=== PATIENT | female | born 1960 | race Caucasian/White ===

== ENCOUNTER 2017-07-08 15:26 | Emergency (ER) | payer MEDICARE, SELFPAY ==
[2017-07-08 15:28] VITALS: BP 145/115; PULSE 84; RESP 20; TEMP 35.9; O2SAT 99; BMI 41.2
--- NOTE | 2017-07-08 16:08 | CT_ITS ---
CT Abdomen And Pelvis W/O Contrast INDICATION: LLQ PAIN. PRIOR TUBIAL LIGATION COMPARISON: None TECHNIQUE: Axial CT imaging of the abdomen and pelvis without contrast. Coronal and sagittal reformatted images. Radiation dose of demonstration technique applied. FINDINGS: There is evidence of moderate left-sided hydronephrosis with surrounding left perinephric fat stranding. There is mild prominence of the left ureter. There is a 1 mm hyperdensity seen in the left distal ureter, image 143 and coronal image 48, which may represent a tiny ureteral calculus. There is otherwise no evidence of nephrolithiasis. The lung bases are clear. The heart size is normal. The liver is diffusely low in density and mildly prominent in size (20 cm CC). Gallbladder, spleen, adrenal glands and pancreas demonstrate grossly unremarkable noncontrast CT appearance. Bowel loops are nondistended. Appendix is unremarkable. Uterus is somewhat bulky, cannot exclude uterine fibroid. Urinary bladder is decompressed. No evidence of free air or free fluid. CT/Abdomen/Pelvis without Cont IMPRESSION: Faint 1 mm left distal ureteral calculus with left-sided hydronephrosis and perinephric fat stranding. Hepatic steatosis and prominent size of the liver. at 1713 Reported and signed by: Rachel Maldonado MD Electronically Signed: Rachel Maldonado MD at 16:12 EST Tel , Service support ,
[2017-07-08] MEDS: Ondansetron 4 MG/2 ML Vial IV (16:34)
[2017-07-08 17:02] LABS: Basophil# 0.08 X10^3/uL; Basophil% 0.4 % (0-1); Eosinophil# 0.04 X10^3/uL; Eosinophils% 0.2 % (0-5); Hematocrit 39.8 % (37-47); Hemoglobin 13.4 g/dl (12.0-15.0); Lymphocyte % 8.9 % (19-41); Mean Corp Hgb Conc 33.7 g/gl (32-36); Mean Corpuscular Hgb 29.2 pg (27.0-32.0); Mean Corpuscular Volume 86.7 fL (81-99); Mean Platelet Vol. 9.3 fl (6.2-12.0); Monocyte# 1.23 X10^3/uL; Monocyte% 6.4 % (0-10); Neutrophil # 16.03 X10^3/uL (2.7-7.7); Neutrophil % 83.8 % (47-70); Platelet Count 335 K/mm3 (150-450); RBC Distribution Width CV 13.6 % (11.6-14.6); RBC Distribution Width SD 42.1 fl (35.1-43.9); Red Blood Count 4.59 M/mm3 (4.2-5.4); White Blood Count 19.1 K/mm3 (4.4-11.0)
[2017-07-08 17:14] LABS: POSITIVE COUNT NO; POSITIVE DIFFERENTIAL NO; POSITIVE MORPHOLOGY NO
[2017-07-08 17:15] LABS: Anion Gap 7 (5-15); BUN 18 mg/dL (7-18); BUN/Creat Ratio 18.3 RATIO (10-20); Calcium,Total 9.3 mg/dL (8.5-10.1); Chloride 104 mmol/L (98-107); Creatinine, Serum 0.98 mg/dL (0.55-1.02); EST Glomerular Filtration Rate 62 mL/min (>60); Est Glom Filt Rate - Afr Amer 75 mL/min (>60); Estimated Creatinine Clearance 50.09 ml/min; Glucose 197 mg/dL (74-106); Potassium 3.8 mmol/L (3.5-5.1); Sodium Level 140 mmol/L (136-145)
[2017-07-08 17:29] LABS: Bacteria 0 SEEN /hpf (None Seen); Mucous, Urine 0 SEEN /hpf (<or=2+); Squamous Epithelial Cells - UA 0 SEEN /hpf (5-10)
[2017-07-08 17:33] LABS: Color, Urine Yellow (Yellow); Glucose, Dipstick Normal (Normal); Ketone-Dipstick 15 mg/dl (Negative); Leukocyte Esterase-Dipstick 25 /ul (Negative); Nitrite-Dipstick Negative (Negative); Occult Blood-Urine 250 /ul (Negative); Protein-Dipstick 15 mg/dl (Negative); Urine Bilirubin Dipstick Negative (Negative); Urine Clarity Cloudy (Clear); Urine Urobilinogen Normal (Normal)
[2017-07-08 18:16] LABS: Amorphous Sediment 1+; Red Blood Cells-Urine 25-50 SEEN /hpf (0-5); White Blood Cells 0-5 SEEN /hpf (0-5)
--- NOTE | 2017-07-08 19:23 | ED.VISSUMM ---
- ER Visit Summary Date of Service: 07/08/17 Chief Complaint: Left lower quadrant pain/flank pain History of Present Illness: The patient is a 57 F who presents with onset of left lower quadrant/flank pain 2-3 days ago. She complains of frequency, urgency and hematuria. She denies dysuria. She denies fever, chills night sweats. She does complain of nausea without vomiting or diarrhea. She has no history of renal ureterolithiasis. She has no history of diverticulosis or diverticulitis. She does have history of hypertension and diabetes. Nothing exacerbates, alleviates or precipitated her discomfort. She states she was treated for urinary tract infection last week. She denies any ocular, visual auditory symptoms. She denies chest pain, palpitations rapid heartbeat. She denies cough, shortness of breath, dyspnea on exertion, orthopnea or PND. There is no history of trauma. She denies any skin lesions. Physical Examination: Appears uncomfortable. BMI is 41.2. Blood pressure is elevated 135/115. Head is atraumatic normocephalic. Pupils are equal round reactive. Extraocular muscles are intact. TMs are pearly white with landmarks noted. Nares patent with no drainage. Posterior pharynx without erythema or exudate. Uvula is midline. There is no dysphonia or dysphasia. Trachea is midline. There is no stridor with auscultation of the neck. Heart is regular without murmur, gallop or rub. S1 and S2 are normal. Lungs are clear to auscultation with good movement of air bilaterally. Abdomen is remarkable for mild discomfort in the left side to deep palpation. There is no guarding or rebound tenderness. There is equivocal CVA tenderness on the left. There is no evidence of umbilical or inguinal hernia. No skin lesions or rash was noted. Neuro exam is nonfocal. Test Results: Note is 19.1 thousand with 84 segs and no bands. Electrode panel was marked for glucose of 197. Urine is positive for leukoesterase and blood at 25 and 250 respectively. Nitrites was negative. Micro reveals 0-5 WBCs 25-50 RBCs with no bacteria. CT of the abdomen and pelvis without contrast reveals a distal 1 mm left ureteral stone. Emergency Department Course and Treatment: He was established and since she is middle-aged with comorbid morbidities she received 4 mg of Zofran 4 mg of morphine for discomfort. Blood work was obtained as well as CT of the abdomen and pelvis without contrast. Treatment Plan: Referral to Dr. Jeffery Carbajal and prescription for [place] Disposition: Discharge to home in stable improved condition Impression: Left sided abdomen/flank pain secondary to ureterolithiasis This note was generated with [employer] dictation software. It may contain incorrect words, spelling, and punctuation that were not noted in review of the chart prior to signing ED Disposition - Plan for ED Patient: Disposition: Home or Assisted Living Chief Complaint: Abd Pain Instructions: ED Stone Renal W Colic Prescriptions: Hydrocodone Bitart/Apap 5-325 [[place] 5MG-325MG] 1 tab PO Q6H PRN PRN 5 Days #20 tab PRN Reason: Pain Referrals: [facility] Luz Kapadia [Primary Care Provider] - Rakan Carbajal MD [STAFF PHYSICIAN] - 5-7 Days
--- NOTE | 2017-07-08 19:30 | ED.DCSUM_ITS ---
- ER Visit Summary Date of Service: 07/08/17 Chief Complaint: Left lower quadrant pain/flank pain History of Present Illness: The patient is a 57 F who presents with onset of left lower quadrant/flank pain 2-3 days ago. She complains of frequency, urgency and hematuria. She denies dysuria. She denies fever, chills night sweats. She does complain of nausea without vomiting or diarrhea. She has no history of renal ureterolithiasis. She has no history of diverticulosis or diverticulitis. She does have history of hypertension and diabetes. Nothing exacerbates, alleviates or precipitated her discomfort. She states she was treated for urinary tract infection last week. She denies any ocular, visual auditory symptoms. She denies chest pain, palpitations rapid heartbeat. She denies cough, shortness of breath, dyspnea on exertion, orthopnea or PND. There is no history of trauma. She denies any skin lesions. Physical Examination: Appears uncomfortable. BMI is 41.2. Blood pressure is elevated 135/115. Head is atraumatic normocephalic. Pupils are equal round reactive. Extraocular muscles are intact. TMs are pearly white with landmarks noted. Nares patent with no drainage. Posterior pharynx without erythema or exudate. Uvula is midline. There is no dysphonia or dysphasia. Trachea is midline. There is no stridor with auscultation of the neck. Heart is regular without murmur, gallop or rub. S1 and S2 are normal. Lungs are clear to auscultation with good movement of air bilaterally. Abdomen is remarkable for mild discomfort in the left side to deep palpation. There is no guarding or rebound tenderness. There is equivocal CVA tenderness on the left. There is no evidence of umbilical or inguinal hernia. No skin lesions or rash was noted. Neuro exam is nonfocal. Test Results: Note is 19.1 thousand with 84 segs and no bands. Electrode panel was marked for glucose of 197. Urine is positive for leukoesterase and blood at 25 and 250 respectively. Nitrites was negative. Micro reveals 0-5 WBCs 25- 50 RBCs with no bacteria. CT of the abdomen and pelvis without contrast reveals a distal 1 mm left ureteral stone. Emergency Department Course and Treatment: He was established and since she is middle-aged with comorbid morbidities she received 4 mg of Zofran 4 mg of morphine for discomfort. Blood work was obtained as well as CT of the abdomen and pelvis without contrast. Treatment Plan: Referral to Dr. Jeffery Carbajal and prescription for [place] Disposition: Discharge to home in stable improved condition Impression: Left sided abdomen/flank pain secondary to ureterolithiasis This note was generated with [employer] dictation software. It may contain incorrect words, spelling, and punctuation that were not noted in review of the chart prior to signing ED Disposition - Plan for ED Patient: Disposition: Home or Assisted Living Chief Complaint: Abd Pain Instructions: ED Stone Renal W Colic Prescriptions: Hydrocodone Bitart/Apap 5-325 [[place] 5MG-325MG] 1 tab PO Q6H PRN PRN 5 Days #20 tab PRN Reason: Pain Referrals: [facility] Luz Kapadia [Primary Care Provider] - Rakan Carbajal MD [STAFF PHYSICIAN] - 5-7 Days
--- NOTE | 2017-07-08 19:31 | ED.VISSUMM ---
- ER Visit Summary Date of Service: 07/08/17 Chief Complaint: [] History of Present Illness: The patient is a 57 F [] Physical Examination: [] Test Results: [] Emergency Department Course and Treatment: [] Treatment Plan: [] Disposition: [] Impression: [] This note was generated with [employer] dictation software. It may contain incorrect words, spelling, and punctuation that were not noted in review of the chart prior to signing ED Disposition - Plan for ED Patient: Disposition: Home or Assisted Living Chief Complaint: Abd Pain Instructions: ED Stone Renal W Colic Prescriptions: Hydrocodone Bitart/Apap 5-325 [[place] 5MG-325MG] 1 tab PO Q6H PRN PRN 5 Days #20 tab PRN Reason: Pain Ciprofloxacin [Cipro] 500 mg PO BID #10 tablet Referrals: Rakan Carbajal MD [STAFF PHYSICIAN] - 5-7 Days [facility]Luz Buckley [Primary Care Provider] -
--- NOTE | 2017-07-08 19:34 | ED.DCSUM_ITS ---
- ER Visit Summary Date of Service: 07/08/17 Chief Complaint: [] History of Present Illness: The patient is a 57 F [] Physical Examination: [] Test Results: [] Emergency Department Course and Treatment: [] Treatment Plan: [] Disposition: [] Impression: [] This note was generated with [employer] dictation software. It may contain incorrect words, spelling, and punctuation that were not noted in review of the chart prior to signing ED Disposition - Plan for ED Patient: Disposition: Home or Assisted Living Chief Complaint: Abd Pain Instructions: ED Stone Renal W Colic Prescriptions: Hydrocodone Bitart/Apap 5-325 [[place] 5MG-325MG] 1 tab PO Q6H PRN PRN 5 Days #20 tab PRN Reason: Pain Ciprofloxacin [Cipro] 500 mg PO BID #10 tablet Referrals: Rakan Carbajal MD [STAFF PHYSICIAN] - 5-7 Days [facility] Buckley [Primary Care Provider] -
[2017-07-08 19:40] VITALS: BP 155/83; PULSE 97; RESP 16; O2SAT 97
== END 2017-07-08 19:45 | disposition home or self-care (01) ==
PROVIDERS: Emergency Provider Emergency Medicine
DX: R10.32 Left lower quadrant pain (principal); N20.1 Calculus of ureter; E66.9 Obesity, unspecified; Z68.41 Body mass index [BMI] 40.0-44.9, adult; E11.9 Type 2 diabetes mellitus without complications; I10 Essential (primary) hypertension; E78.00 Pure hypercholesterolemia, unspecified; Z87.440 Personal history of urinary (tract) infections; Z87.891 Personal history of nicotine dependence; Z79.84 Long term (current) use of oral hypoglycemic drugs; Z79.4 Long term (current) use of insulin; Z79.899 Other long term (current) drug therapy
CPT/HCPCS: 74176; 80048; 81001; 85025; 96374; 96375; 99285; A4216; J2405

== ENCOUNTER → 2018-06-16 12:56 | Outpatient (CLI) | payer MEDICARE, MEDICAID, SELFPAY ==
[2018-06-16 12:53] VITALS: BMI 41.2
--- NOTE | 2018-06-16 12:59 | RAD_ITS ---
STUDY: X-RAY CHEST REASON FOR EXAM: Female, 58 years old. Cough. TECHNIQUE: PA and lateral views. COMPARISON: None. FINDINGS: The lungs are clear and expanded. There is no demonstrated pleural abnormality. Normal size heart. Normal mediastinum and elba. Normal visualized pulmonary arteries. Normal visualized aortic arch and descending thoracic aorta. Normal visualized thoracic spine. Normal visualized ribs, clavicles, and shoulders. There is no demonstrated abnormality of the visualized soft tissue structures of the upper abdomen. RAD/Chest PA and Lateral IMPRESSION: Normal x-ray examination of the chest. Electronically Signed: Barry Gutierrez MD at 13:51 EST , Service support ,
== END ==
PROVIDERS: Referring Provider Physician Assistant Surgical; Visit Provider Physician Assistant Surgical
DX: J40 Bronchitis, not specified as acute or chronic (principal)
CPT/HCPCS: 71046

== ENCOUNTER → 2018-06-20 07:54 | Outpatient (CLI) | payer MEDICARE, SELFPAY ==
[2018-06-16 12:53] VITALS: BMI 41.2
--- NOTE | 2018-06-20 07:59 | BI_ITS ---
MAMMOGRAPHY - BILATERAL SCREENING REASON FOR EXAM: Female, 58 years old. Routine annual screening examination. PERTINENT HISTORY: Non-contributory. TECHNIQUE: Digital bilateral breast robert (3D mammographic acquisition) in the CC and MLO projections. 2-D mediolateral oblique (MLO) and craniocaudad (CC) views of both breasts were obtained. CAD: Full Field Digital Mammography with Computer Added Detection was performed. COMPARISON: Comparison is made with prior study dated April 05, 2017 and April 03, 2016 FINDINGS: Breast Composition: The breasts are almost entirely fatty. There are no dominant masses or suspicious calcifications. No other significant abnormalities are identified. There has been no significant change since the prior study. BI/SCREENING MAMM (CAD), BILAT IMPRESSION: Stable bilateral screening mammogram. Yearly follow-up mammogram recommended. (A) ASSESSMENT CATEGORY: BIRADS Category 1: Negative. A letter regarding these results will be sent to the patient by the facility within 30 days. Approximately 10% of breast cancers are not detected by mammography. A normal mammogram should not delay biopsy of a clinically suspicious abnormality. [id number] Electronically Signed: Yves Lino MD at 10:20 EST , Service support ,
== END ==
DX: Z12.31 Encounter for screening mammogram for malignant neoplasm of breast (principal)
CPT/HCPCS: 77063; 77067

== ENCOUNTER → 2019-06-01 07:52 | Outpatient (CLI) | payer OTHER, SELFPAY ==
[2018-06-16 12:53] VITALS: BMI 41.2
--- NOTE | 2019-06-01 07:56 | BI_ITS ---
MAMMOGRAPHY - BILATERAL SCREENING REASON FOR EXAM: Female, 59 years old. Routine annual screening examination. PERTINENT HISTORY: Non-contributory. TECHNIQUE: Digital bilateral breast guero (3D mammographic acquisition) in the CC and MLO projections. 2-D mediolateral oblique (MLO) and craniocaudad (CC) views of both breasts were obtained. CAD: Full Field Digital Mammography with Computer Added Detection was performed. COMPARISON: Comparison is made with prior study dated June 20, 2018 and April 05, 2017. FINDINGS: Breast Composition: The breasts are almost entirely fatty. There are no dominant masses or suspicious calcifications. No other significant abnormalities are identified. There has been no significant change since the prior study. BI/SCREEN MAMM (CAD) W/GUERO BILAT IMPRESSION: Stable bilateral screening mammogram. Yearly follow-up mammogram recommended. (A) ASSESSMENT CATEGORY: BIRADS Category 1: Negative. A letter regarding these results will be sent to the patient by the facility within 30 days. Approximately 10% of breast cancers are not detected by mammography. A normal mammogram should not delay biopsy of a clinically suspicious abnormality. [id number] Electronically Signed: Yves Lino, at 9:35 EST , Service support ,
== END ==
DX: Z12.31 Encounter for screening mammogram for malignant neoplasm of breast (principal)
CPT/HCPCS: 77063; 77067

== ENCOUNTER 2019-08-02 12:07 | Emergency (ER) | payer OTHER, SELFPAY ==
[2019-08-02 11:39] VITALS: BMI 41.2
[2019-08-02 12:08] VITALS: BP 147/72; PULSE 91; RESP 18; TEMP 37.1; O2SAT 97; BMI 38.5
--- NOTE | 2019-08-02 12:29 | ED.VIS.GEN ---
History of Present Illness Chief Complaint: Laceration Informant: Patient Onset: Days - 2 days ago Current Severity: Mild Maximum Severity: Moderate Narrative: Patient presents with laceration to the right thumb that she sustained 2 days ago at work. She cut the end of her right thumb on a knife. She is right-hand dominant. [facility] to presentation to the ER and tetanus shot was updated there. They did not have ability to do x-rays at the [facility] so patient was sent to the emergency room. Patient states she did wash the wound out well and has kept it wrapped since the time of injury. She has full range of motion and no problems with sensation. - Past Medical History (1) Diabetes Status: Chronic (2) Asthma Status: Chronic (3) Hypertension Status: Chronic Past Medical History - Allergies and Home Meds Allergies/Adverse Reactions: Allergies No Known Allergies Allergy (Verified 08/02/19 12:11) Primary Care Physician: Luz Leong [NON-STAFF] - Prior records reviewed: Yes Smoking Status: Former smoker Review of Systems General: Denies: Chills, Fever Eyes: Denies: Visual changes - bilaterally ENT: Denies: Bilateral ear pain Cardiovascular: Denies: Chest pain Respiratory: Denies: Dyspnea, Cough Gastrointestinal: Denies: Abdominal pain, Nausea, Vomiting, Diarrhea Genitourinary: Denies: Dysuria Musculoskeletal: Reports: Extremity Pain Skin: Reports: Wounds Neurological: Denies: Headache, Weakness, Parasthesia Hematologic: Denies: Easy bruising Allergy: Denies: Uticaria Physical Exam Vital Signs/Narrative: Vital Signs Temp Pulse Resp BP Pulse Ox 08/02/19 12:08 98.7 F 91 18 147/72 H 97 Inital Vital Signs reviewed: Yes General: Well nourished, Well developed Head: Normocephalic ENT: Moist mucous membranes Neck: Supple Cardiovascular: Regular rate, Regular rhythm Respiratory: No distress, CTA bilaterally Abdomen: Soft, Nontender Extremities: - - 1 cm laceration over the distal aspect of the right thumb with involvement of the distal nail. No active bleeding at this time. Wound is starting to heal and is already sealed off. Full range of motion of the digit. Normal cap refill and sensation distally. Skin: - - As above Neurological: Alert, Oriented x3, Normal Strength, Normal Sensation Psychological: Normal affect Diagnostic/Tx/Re-eval Right thumb x-rays are obtained. Per my review of no evidence of bony injury or foreign body. - Medical Decision Making To be cleansed and dressed. Wound is healing well at this time. I feel that if I force the laceration open to wash it out that will discuss further damage. She will watch for signs of infection. We will use a topical bacitracin ointment at this time. ED Disposition - Plan for ED Patient: Disposition: Home or Assisted Living Diagnosis: Thumb laceration Instructions: LACERATION, Old - Not Sutured Referrals: [facility] [GROUP OF PHYSICIANS] - 3-5 Days
--- NOTE | 2019-08-02 12:35 | RAD_ITS ---
STUDY: X-RAY - RIGHT HAND, ATTENTION THUMB REASON FOR EXAM: Female, 59 years old. Laceration TECHNIQUE: 3 view(s) of the thumb were obtained. COMPARISON: None. FINDINGS: There is no evidence of fracture or dislocation. There are no significant degenerative changes. There are no radiodense foreign bodies. RAD/Finger(s) Min 2 Views IMPRESSION: Negative radiographs of the right thumb Electronically Signed: Kael Isaac, at 12:51 EDT Tel , Service support ,
== END 2019-08-02 13:08 | disposition home or self-care (01) ==
PROVIDERS: Emergency Provider Emergency Medicine; PCP Nurse Practitioner Family
DX: S61.011A Laceration without foreign body of right thumb without damage to nail, initial encounter (principal); W26.0XXA Contact with knife, initial encounter; Y93.9 Activity, unspecified; Y92.9 Unspecified place or not applicable; I10 Essential (primary) hypertension; E11.9 Type 2 diabetes mellitus without complications; J45.909 Unspecified asthma, uncomplicated; Z79.4 Long term (current) use of insulin; Z79.84 Long term (current) use of oral hypoglycemic drugs; Z79.899 Other long term (current) drug therapy; Z87.891 Personal history of nicotine dependence
CPT/HCPCS: 73140; 99282

== ENCOUNTER 2020-01-15 08:57 | Day surgery (SDC) | payer OTHER, SELFPAY ==
[2019-08-07 15:58] VITALS: BMI 38.5
--- NOTE | 2020-01-15 08:58 | RAD_ITS ---
STUDY: X-RAY - ABDOMEN/PELVIS REASON FOR EXAM: Female, 59 years old. Left sided kidney stones. Surgery later today. TECHNIQUE: Single AP view of the abdomen / pelvis. COMPARISON: None. FINDINGS: Normal visualized lung bases. There is a moderate amount of colonic fecal material. There is a 6.9 mm calcific density overlying the transverse processes of the L3 vertebra on the left side. This may represent a proximal left ureteral calculus. There is evidence of prior bilateral tubal ligation. Normal visualized osseous structures. RAD/Abdomen Single View IMPRESSION: Findings suggestive of a 6.9 mm calculus in the midportion of the left ureter overlying the transverse process of the L3 vertebrae on the left side. Electronically Signed: Yves Lino, at 12:38 EDT , Service support ,
[2020-01-15 09:36] LABS: Bedside Glucose 228 mg/dL (70-110)
[2020-01-15 09:38] VITALS: BP 134/70; PULSE 77; RESP 16; TEMP 36.6; O2SAT 97; BMI 35.4
[2020-01-15] MEDS: Lactated Ringers 1,000 ML 100 ML IV (09:50)
--- NOTE | 2020-01-15 10:26 | PCM.HP.STD ---
History of Present Illness Date of Admission: 01/15/20 Chief Complaint: Left ureteral calculi The patient is a 59 year old female with an 8 mm stone in the mid left ureter she presents today to the hospital for shockwave lithotripsy of the stone possible stent Past Medical History Past Medical History (Chronic Problems): Chronic Problems (Last Updated 06/16/18 @ 13:04 by Adele Garduno) Diabetes (Chronic) Asthma (Chronic) Hypertension (Chronic) Medical History: Medical History (Last Updated 06/16/18 @ 13:04 by Adele Garduno) Arthritis M19.90 Asthma J45.909 Back pain M54.9 Cataracts, both eyes H26.9 Diabetes E11.9 Difficulty balancing R29.818 Fatigue R53.83 Glaucoma H40.9 Incontinence R32 Knee pain M25.569 Lung disease J98.4 Migraines G43.909 SOB (shortness of breath) R06.02 Shoulder pain M25.519 HTN (hypertension) I10 Allergies No Known Allergies Allergy (Verified 01/15/20 09:36) Home Medications: Ambulatory Orders Medication Instructions Recorded Ergocalciferol [Vitamin D] 50,000 unit PO Q7D 07/08/17 Insulin Glargine,Hum.rec.anlog 50 unit SQ QHS 07/08/17 [Basaglar Kwikpen U-100] Losartan Potassium [Cozaar] 50 mg PO DAILY 07/08/17 Rosuvastatin Calcium [Crestor] 10 mg PO QHS 07/08/17 Spironolactone [Aldactone] 25 mg PO DAILY 07/08/17 busPIRone [Buspar] 7.5 mg PO BID 07/08/17 metFORMIN HCl [Glucophage] 1,000 mg PO BIDCM 07/08/17 Albuterol IH (ProAir) [Proair Hfa 1 - 2 puff INHALATION Q4H PRN PRN 01/14/20 (SP)Vent Pts] Biotin 1,000 mcg PO DAILY 01/14/20 Budesonide/Formoterol Fumarate 1 puff IH PRN PRN 01/14/20 [Symbicort 80-4.5 Mcg Inhaler] Cephalexin [Keflex] 500 mg PO 4X/DAY 01/14/20 Cranberry Fruit Extract [Cranberry] 15,000 mg PO DAILY 01/14/20 Cyanocobalamin (Vitamin B-12) 5,000 mcg PO DAILY 01/14/20 [Vitamin B12] Loratadine [Claritin] 10 mg PO DAILY 01/14/20 Magnesium Oxide [Magnesium] 400 mg PO DAILY 01/14/20 Multivitamin with Minerals 1 ea PO DAILY 01/14/20 [Multiple Vitamin] Oxycodone HCl/Acetaminophen 1 ea PO Q6H PRN 01/14/20 [Oxycodone-Acetaminophen 5-325] Surgical History: Surgical History (Last Updated 06/16/18 @ 13:04 by Adele Garduno) H/O removal of cyst Z98.890 History of tonsillectomy Z90.89 History of tubal ligation Z98.51 Surgical History: no surgical history Smoking Status: Former smoker Tobacco Use: Non-smoker Review of Systems Constitutional: Denies: Chills, Fever, Weight Change HEENT: Denies: Head Aches, Sinus Congestion, Sinus Drainage Cardiovascular: Denies: Chest Pain, Palpitations Respiratory: Denies: Cough, Shortness of breath at rest, Sputum production Gastrointestinal: Denies: Abdominal Pain, Nausea, Vomiting Genitourinary: Denies: Dysuria Musculoskeletal: Denies: Joint Pain, Joint Tenderness Skin: Denies: Rash, Wounds Neurological: Denies: Numbness, Tingling, Focal weakness Psychiatric: Denies: Anxiety, Depression, Homicidal Ideations, Suicidal Ideations Hematologic/ Lymphatic: Denies: Easy Bruising, Easy Bleeding VTE Information - Inpt Only VTE Present on Admission: No - Physical Exam Vitals/I&O's: Vital Signs Temp Pulse Resp BP Pulse Ox 97.8 F 77 16 134/70 H 97 01/15/20 09:38 01/15/20 09:38 01/15/20 09:38 01/15/20 09:38 01/15/20 09:38 Oxygen Delivery Method Room Air Weight: 95.2 kg Body Mass Index (BMI) 35.4 General: Alert, Oriented x3, Cooperative HEENT: Atraumatic, PERRLA, EOMI, Normocephalic Neck: Supple, No JVD, Negative Carotid Bruits Lungs: Clear to auscultation, Normal air movement Cardiovascular: Regular rate, No murmurs Abdomen: Bowel Sounds Present, Soft, Non Tender Extremities: No edema, Capillary Refill Less than 3 Seconds Skin: No rashes, No breakdown Musculoskeletal: No Tenderness to Palpation of Joints or Extremities Neurological: Cranial nerves II-XII grossly intact Psych/Mental Status: Normal Affect, Appropriate Laboratory Results 01/15/20 09:30: POC Glucose 228 H Current Medications Lactated Ringer's () 1,000 mls @ 100 mls/hr IV .Q10H HIPOLITO Last Admin: 01/15/20 09:50 Dose: 100 mls/hr Documented by: Assessment/Plan All Active Problems (Last Updated 06/16/18 @ 13:04 by Adele Garduno) Laceration without foreign body of right thumb with damage to nail, initial encounter (Acute) Shingles (Acute) Sinusitis (Acute) Bronchitis (Acute) Plan to proceed with left shockwave lithotripsy possible stent.
--- NOTE | 2020-01-15 10:27 | DCINST_ITS ---
Discharge Diet: Light diet - advance as tolerated Discharge Activity: Return to Normal Activity Call your doctor if your incision/area has: Sudden Increased Bleeding Call your doctor if you observe: Fever of 101 or Higher Allergies/Adverse Reactions: Allergies No Known Allergies Allergy (Verified 01/15/20 09:36) Medications to take at Discharge Ergocalciferol [Vitamin D] 50,000 unit PO Q7D 07/08/17 Insulin Glargine,Hum.rec.anlog [Basaglar Kwikpen U-100] 50 unit SQ QHS 07/08/17 Losartan Potassium [Cozaar] 50 mg PO DAILY 07/08/17 Rosuvastatin Calcium [Crestor] 10 mg PO QHS 07/08/17 Spironolactone [Aldactone] 25 mg PO DAILY 07/08/17 busPIRone [Buspar] 7.5 mg PO BID 07/08/17 metFORMIN HCl [Glucophage] 1,000 mg PO BIDCM 07/08/17 Albuterol IH (ProAir) [Proair Hfa (SP)Vent Pts] 1 - 2 puff INHALATION Q4H PRN PRN 01/14/20 Biotin 1,000 mcg PO DAILY 01/14/20 Budesonide/Formoterol Fumarate [Symbicort 80-4.5 Mcg Inhaler] 1 puff IH PRN PRN 01/14/20 Cephalexin [Keflex] 500 mg PO 4X/DAY 01/14/20 Cranberry Fruit Extract [Cranberry] 15,000 mg PO DAILY 01/14/20 Cyanocobalamin (Vitamin B-12) [Vitamin B12] 5,000 mcg PO DAILY 01/14/20 Loratadine [Claritin] 10 mg PO DAILY 01/14/20 Magnesium Oxide [Magnesium] 400 mg PO DAILY 01/14/20 Multivitamin with Minerals [Multiple Vitamin] 1 ea PO DAILY 01/14/20 Oxycodone HCl/Acetaminophen [Oxycodone-Acetaminophen 5-325] 1 ea PO Q6H PRN 01/14/20 Orders to be completed after discharge: Abdomen Single View [RAD] Time Frame: 01/15/20, Facility: [facility], Location: [facility] Primary Care Physician: Luz Leong [Primary Care Provider] - Test Results: Test results from this visit will be discussed in further detail at your follow- up appointment, if applicable. Please Follow Up With: Rakan Carbajal MD When: in 2 weeks, please call to make an appointment.
[2020-01-15] MEDS: Cefazolin 2 GM in 0.9% Normal Saline 100 ML IV (10:41)
--- NOTE | 2020-01-15 11:26 | PCM.OPRPT ---
Report of Operation Date of Procedure: 01/15/20 Pre-Operative Diagnosis: Left ureteral calculi Post-Operative Diagnosis: Same Surgery/Procedure Performed:: Left extracorporeal shockwave lithotripsy Description of Surgical Findings:: 59-year-old female with a stone in the mid left ureter presents to the hospital today for treatment of the stone with shockwave lithotripsy she was taken back to the operating room after smooth induction of general anesthesia she was placed in supine position on the lithotripter table and using fluoroscopy we identified the stone in the mid left ureter used triangulation technique to identify the stone. We also reviewed the CAT scan and KUB. We then proceeded with shockwave lithotripsy and delivered a total of 3000 shockwaves to the stone at a rate of 90/min between 5 to 7 kV. At the end of the treatment cycle the stone to change significantly can see any more major fragments so decided not to leave a stent and the patient anesthetic is currently being reversed I will see her back in a few weeks with a KUB. No stent placed. Type of Anesthesia:: General Drains: stent
[2020-01-15 11:35] VITALS: BP 134/70; BP 146/87; PULSE 70; RESP 16; TEMP 36.4; O2SAT 100
[2020-01-15 11:45] VITALS: BP 121/70; BP 134/70; PULSE 71; RESP 16; O2SAT 92
[2020-01-15 12:00] VITALS: BP 118/70; BP 134/70; PULSE 68; RESP 16; TEMP 36.1; O2SAT 96
[2020-01-15 12:00] LABS: Bedside Glucose 203 mg/dL (70-110)
[2020-01-15 13:28] VITALS: BP 134/70; BP 144/82; PULSE 78; RESP 16; TEMP 36.1; O2SAT 97
== END 2020-01-15 13:38 | disposition home or self-care (01) ==
LOC: SDC 08:58 → AC 08:59
PROVIDERS: Referring Provider Urology; Visit Provider Urology
PROC: (CPT 50590; principal; 2020-01-15 11:05)
DX: N20.1 Calculus of ureter (principal); Z87.442 Personal history of urinary calculi; I10 Essential (primary) hypertension; M19.90 Unspecified osteoarthritis, unspecified site; J45.909 Unspecified asthma, uncomplicated; H40.9 Unspecified glaucoma; E11.36 Type 2 diabetes mellitus with diabetic cataract; G43.909 Migraine, unspecified, not intractable, without status migrainosus; Z79.4 Long term (current) use of insulin; Z79.84 Long term (current) use of oral hypoglycemic drugs; Z79.899 Other long term (current) drug therapy; Z87.891 Personal history of nicotine dependence
CPT/HCPCS: 00872; 50590; 74018; 82962; J7120; J2405

== ENCOUNTER → 2020-04-22 08:27 | Outpatient (CLI) | payer OTHER, SELFPAY ==
[2020-04-22 09:22] LABS: Absolute Lymphocyte Count 2.55 X10^3/uL (0.83-4.51); Absolute Neutrophil Count 6.1 X10^3/uL (2.0-7.7); Basophil# 0.04 X10^3/uL; Basophil% 0.4 % (0-1); Eosinophil# 0.12 X10^3/uL; Eosinophils% 1.3 % (0-5); Hematocrit 43.7 % (37-47); Hemoglobin 13.9 g/dL (12.0-15.0); Lymphocyte # 2.55 X10^3/ul (4.0); Lymphocyte % 26.6 % (19-41); Mean Corp Hgb Conc 31.8 g/dL (32-36); Mean Corpuscular Hgb 27.6 pg (27.0-32.0); Mean Corpuscular Volume 86.7 fL (81-99); Mean Platelet Vol. 9.4 fl (6.2-12.0); Monocyte# 0.77 X10^3/uL; NRBC Flagged by Analyzer 0 % (0-5); Neutrophil # 6.06 X10^3/uL (2.7-7.7); Neutrophil % 63.4 % (47-70); Platelet Count 321 K/mm3 (150-450); RBC Distribution Width CV 13.8 % (11.6-14.6); RBC Distribution Width SD 44.1 fl (35.1-43.9); Red Blood Count 5.04 M/mm3 (4.2-5.4); White Blood Count 9.6 K/mm3 (4.4-11.0)
[2020-04-22 09:49] LABS: Vitamin D,25 Hydroxy 84.6 ng/mL
[2020-04-22 09:55] LABS: ALB/GLOB Ratio 1.1 RATIO (0.9-2.4); AST(SGOT) 20 U/L (15-37); Alanine Aminotransfer ALT/SGPT 39 U/L (13-56); Albumin, Serum 3.6 g/dL (3.2-5.0); Alkaline Phosphatase 81 U/L (45-117); Anion Gap 7 (5-15); BUN 14 mg/dL (7-18); Calcium,Total 8.9 mg/dL (8.5-10.1); Chloride 100 mmol/L (98-107); Cholesterol 157 mg/dL (200); Creatinine, Serum 0.67 mg/dL (0.55-1.02); EST Glomerular Filtration Rate 96 mL/min (>60); Est Glom Filt Rate - Afr Amer 116 mL/min (>60); Globulin 3.2 g/dL (2.2-4.2); Glucose 235 mg/dL (74-106); High Density Lipoprotein 55 mg/dL; Potassium 3.8 mmol/L (3.5-5.1); Protein, Total 6.8 g/dL (6.4-8.2); Sodium Level 137 mmol/L (136-145); Triglycerides 170 mg/dL; Very Low Density Lipoprotein 34 mg/dL (5-40)
== END ==
DX: E11.65 Type 2 diabetes mellitus with hyperglycemia (principal); E78.2 Mixed hyperlipidemia; E55.9 Vitamin D deficiency, unspecified; I10 Essential (primary) hypertension
CPT/HCPCS: 36415; 80053; 80061; 82306; 83036; 85025

== ENCOUNTER → 2020-07-26 16:01 | Outpatient (CLI) | payer OTHER, SELFPAY ==
--- NOTE | 2020-07-26 16:02 | EKG12_ITS ---
Test Reason : PALPATIONS Blood Pressure : / mmHG Vent. Rate : 088 BPM Atrial Rate : 088 BPM P-R Int : 162 ms QRS Dur : 084 ms QT Int : 364 ms P-R-T Axes : 059 066 024 degrees QTc Int : 440 ms Normal sinus rhythm Low voltage QRS Borderline ECG Confirmed by YANETH CASIANO, ROCCO ([id number]), technical writer and editor EFRAIN POOLE ([id number]) on 07/27/2020 11:20:59 AM Referred By: [facility] Confirmed By:ROCCO WOLFE MD
--- NOTE | 2020-07-26 16:16 | BI_ITS ---
MAMMOGRAPHY - BILATERAL SCREENING REASON FOR EXAM: Female, 60 years old. Routine annual screening examination. PERTINENT HISTORY: Non-contributory. TECHNIQUE: Digital bilateral breast guero (3D mammographic acquisition) in the CC and MLO projections. 2-D mediolateral oblique (MLO) and craniocaudad (CC) views of both breasts were obtained. CAD: Full Field Digital Mammography with Computer Added Detection was performed. COMPARISON: Comparison is made with prior study dated 06/01/2019 and 06/20/2018. FINDINGS: Breast Composition: The breasts are almost entirely fatty. There are no dominant masses or suspicious calcifications. No other significant abnormalities are identified. There has been no significant change since the prior study. BI/SCRN MAMM (CAD)W/GUERO BILAT IMPRESSION: Stable bilateral screening mammogram. Yearly follow-up mammogram recommended. (A) ASSESSMENT CATEGORY: BIRADS Category 1: Negative. A letter regarding these results will be sent to the patient by the facility within 30 days. Approximately 10% of breast cancers are not detected by mammography. A normal mammogram should not delay biopsy of a clinically suspicious abnormality. [id number] Electronically Signed: Yves Lino MD at 10:58 EDT , Service support ,
== END ==
DX: Z12.31 Encounter for screening mammogram for malignant neoplasm of breast (principal); R00.2 Palpitations
CPT/HCPCS: 77063; 77067; 93005

== ENCOUNTER → 2020-09-10 08:56 | Outpatient (CLI) | payer OTHER, SELFPAY ==
[2020-09-10 10:10] LABS: Hemoglobin A1c 10.2 % (3.8-5.6)
[2020-09-10 10:27] LABS: AST(SGOT) 27 U/L (15-37); Alanine Aminotransfer ALT/SGPT 34 U/L (13-56); Albumin, Serum 3.4 g/dL (3.2-5.0); Alkaline Phosphatase 78 U/L (45-117); Anion Gap 4 (5-15); BUN 19 mg/dL (7-18); BUN/Creat Ratio 25.2 RATIO (10-20); Calcium,Total 8.8 mg/dL (8.5-10.1); Chloride 98 mmol/L (98-107); Creatinine, Serum 0.76 mg/dL (0.55-1.02); EST Glomerular Filtration Rate 83 mL/min (>60); Est Glom Filt Rate - Afr Amer 101 mL/min (>60); Globulin 3.3 g/dL (2.2-4.2); Glucose 241 mg/dL (74-106); Potassium 3.9 mmol/L (3.5-5.1); Protein, Total 6.7 g/dL (6.4-8.2); Sodium Level 135 mmol/L (136-145)
== END ==
LOC: LAB 08:59
DX: R60.0 Localized edema (principal)
CPT/HCPCS: 36415; 80053; 83036

== ENCOUNTER → 2020-10-21 15:38 | Outpatient (CLI) | payer OTHER, SELFPAY ==
--- NOTE | 2020-10-21 15:51 | US_ITS ---
STUDY: ULTRASOUND OF THE FEMALE PELVIS - COMPLETE REASON FOR EXAM: Female, 60 years old. ABN UTERINE AND VAGINAL BLEEDING LMP: Unknown. TECHNIQUE: TECHNICAL QUALITY: Adequate. COMPARISON: None. FINDINGS: The uterus is anteverted and is in a midline position. The uterus measures 8.4 x 5.4 x 4.1 cm. Normal uterine cervix. The endometrium measures 3.8 mm in thickness, and is hyperechoic. There is no demonstrated endometrial mass. Multiple uterine fibroids, largest measures 2.5 cm and is impinging upon the endometrium. I.U.D. - The patient does not have an I.U.D. Neither ovary visualized. There is no fluid in the cul-de-sac. The bladder is sonographically normal US/Transvaginal Non- IMPRESSION: Endometrium measures normal thickness at 3.8 mm Fibroid uterus, largest measures 2.5 cm and is impinging upon the endometrium. It may be responsible for the abnormal bleeding Neither ovary visualized, there is no suspicious cystic mass or free fluid. Electronically Signed: Dave Baeza MD at 9:11 EDT , Service support ,
--- NOTE | 2020-10-21 15:51 | US_ITS ---
STUDY: ULTRASOUND OF THE FEMALE PELVIS - COMPLETE REASON FOR EXAM: Female, 60 years old. ABN UTERINE AND VAGINAL BLEEDING LMP: Unknown. TECHNIQUE: TECHNICAL QUALITY: Adequate. COMPARISON: None. FINDINGS: The uterus is anteverted and is in a midline position. The uterus measures 8.4 x 5.4 x 4.1 cm. Normal uterine cervix. The endometrium measures 3.8 mm in thickness, and is hyperechoic. There is no demonstrated endometrial mass. Multiple uterine fibroids, largest measures 2.5 cm and is impinging upon the endometrium. I.U.D. - The patient does not have an I.U.D. Neither ovary visualized. There is no fluid in the cul-de-sac. The bladder is sonographically normal US/Pelvic (Non ) IMPRESSION: Endometrium measures normal thickness at 3.8 mm Fibroid uterus, largest measures 2.5 cm and is impinging upon the endometrium. It may be responsible for the abnormal bleeding Neither ovary visualized, there is no suspicious cystic mass or free fluid. Electronically Signed: Dave Baeza MD at 9:11 EDT , Service support ,
[2020-10-21 17:26] LABS: Absolute Lymphocyte Count 2.44 X10^3/uL (0.83-4.51); Absolute Neutrophil Count 7.6 X10^3/uL (2.0-7.7); Basophil# 0.04 X10^3/uL; Basophil% 0.4 % (0-1); Eosinophil# 0.16 X10^3/uL; Eosinophils% 1.4 % (0-5); Hematocrit 41.6 % (37-47); Hemoglobin 13.3 g/dL (12.0-15.0); Lymphocyte # 2.44 X10^3/ul (0.83-4.51); Lymphocyte % 21.9 % (19-41); Mean Corpuscular Hgb 27.8 pg (27.0-32.0); Mean Platelet Vol. 9.3 fl (6.2-12.0); Monocyte# 0.94 X10^3/uL; Monocyte% 8.4 % (0-10); NRBC Flagged by Analyzer 0 % (0-5); Neutrophil # 7.55 X10^3/uL (2.7-7.7); Neutrophil % 67.6 % (47-70); Platelet Count 333 K/mm3 (150-450); RBC Distribution Width CV 14.3 % (11.6-14.6); RBC Distribution Width SD 46.3 fl (35.1-43.9); Red Blood Count 4.78 M/mm3 (4.2-5.4); White Blood Count 11.2 K/mm3 (4.4-11.0)
== END ==
PROVIDERS: Referring Provider Nurse Practitioner Adult Health; Visit Provider Nurse Practitioner Adult Health
DX: N93.9 Abnormal uterine and vaginal bleeding, unspecified (principal); J44.9 Chronic obstructive pulmonary disease, unspecified; E11.65 Type 2 diabetes mellitus with hyperglycemia
CPT/HCPCS: 36415; 76830; 76856; 85025

== ENCOUNTER → 2021-03-31 06:40 | Outpatient (CLI) | payer BC, SELFPAY ==
[2021-03-31 07:07] LABS: Hematocrit 41.1 % (37-47); Hemoglobin 13.7 g/dL (12.0-15.0); Mean Corp Hgb Conc 33.3 g/dL (32-36); Mean Corpuscular Hgb 28.2 pg (27.0-32.0); Mean Corpuscular Volume 84.7 fL (81-99); Mean Platelet Vol. 9.5 fl (6.2-12.0); Platelet Count 272 K/mm3 (150-450); RBC Distribution Width CV 13.6 % (11.6-14.6); RBC Distribution Width SD 41.9 fl (35.1-43.9); Red Blood Count 4.85 M/mm3 (4.2-5.4); White Blood Count 10.4 K/mm3 (4.4-11.0)
[2021-03-31 07:44] LABS: AST(SGOT) 27 U/L (15-37); Alanine Aminotransfer ALT/SGPT 35 U/L (13-56); Albumin, Serum 3.4 g/dL (3.2-5.0); Alkaline Phosphatase 81 U/L (45-117); Anion Gap 7 (5-15); BUN 16 mg/dL (7-18); BUN/Creat Ratio 23.5 RATIO (10-20); Calcium,Total 8.7 mg/dL (8.5-10.1); Chloride 100 mmol/L (98-107); Cholesterol 127 mg/dL (200); Creatinine, Serum 0.68 mg/dL (0.55-1.02); EST Glomerular Filtration Rate 93 mL/min (>60); Est Glom Filt Rate - Afr Amer 113 mL/min (>60); Globulin 3.3 g/dL (2.2-4.2); Glucose 259 mg/dL (74-106); High Density Lipoprotein 43 mg/dL; Potassium 3.8 mmol/L (3.5-5.1); Protein, Total 6.7 g/dL (6.4-8.2); Sodium Level 132 mmol/L (136-145); Thyroid Stim Hormone (TSH) 2.39 uIU/mL (0.358-3.74); Triglycerides 245 mg/dL; Very Low Density Lipoprotein 49 mg/dL (5-40)
[2021-03-31 09:39] LABS: Vitamin D,25 Hydroxy 47.3 ng/mL
== END ==
PROVIDERS: Referring Provider Nurse Practitioner Adult Health; Visit Provider Nurse Practitioner Adult Health
DX: E11.65 Type 2 diabetes mellitus with hyperglycemia (principal)
CPT/HCPCS: 36415; 80053; 80061; 82306; 84443; 85027

== ENCOUNTER → 2021-04-28 | Outpatient (CLI) | payer BC, SELFPAY ==
--- NOTE | 2021-04-28 | EMB_PTH ---
PATIENT: THUAN BETANCOURT [facility] U#:[id number] AGE/SX: 61/F ROOM: RE04/28/[address]: Dr. David Au MD : 1960 BED: DIS: 04/28/2021 SPEC #: [id number] RECD: 04/28/21 14:57 STATUS: HAYES REQ #: [id number] GALILEO: 04/28/21 00:[address]: David Au DEPT: SURGICAL PATHOLOGY RECD BY: Puneet Naranjo ENTERED: 05/01/21 11:03 SP TYPE: ENDOM BX/C JONY DR: Luz [facility] Tissues: Endometrium, NOS Procedures: Surgery Specimen Level IV HEADER OPERATION: Endometrial biopsy PRE-OP DIAGNOSIS: N95.0 TISSUE SUBMITTED: Endometrial biopsy MICROSCOPIC DIAGNOSIS Endometrium, biopsy: Strips of benign superficial glandular mucosa. AM:jorge 05/02/2021 MICROSCOPIC DESCRIPTION Slides are reviewed. GROSS DESCRIPTION Received in fixative is one container labeled with the patient's name and designated endometrial biopsy. The specimen consists of multiple irregular fragments of light infante soft tissue that in aggregate measure 2 x 1 x <0.1 cm. The specimen is totally submitted in one cassette. / AM:jorge 05/01/21 TC:5 CPT: 73186
== END | disposition home or self-care (01) ==
LOC: LABSPEC 14:13
PROVIDERS: Visit Provider Obstetrics & Gynecology
DX: N95.0 Postmenopausal bleeding (principal)
CPT/HCPCS: 88305

== ENCOUNTER 2022-04-13 07:07 | Outpatient (CLI) | payer BC, MEDICAID, SELFPAY ==
--- NOTE | 2022-04-13 07:11 | ECHOCS_ITS ---
Version 2 Reason For Study: Dyspnea/SOB Procedure This was a 2D Doppler, Color Flow transthoracic echocardiogram. The study was technically difficult. Contrast injection was performed. Exam performed in department. Left Ventricle Normal LV size. Left ventricular systolic function is normal. The estimated ejection fraction is 65 %. Stage 2 diastolic dysfunction. No regional wall motion abnormalities noted. Right Ventricle Normal RV size. Normal systolic function. Atria Normal left atrium. Normal right atrium. Mitral Valve Normal mitral valve. Tricuspid Valve Normal tricuspid valve. Mild (1+) tricuspid valve insufficiency. Pulmonary artery systolic pressure is 33 mmHg. Aortic Valve Normal aortic valve. Pulmonic Valve The pulmonic valve is not well visualized. Great Vessels Normal aortic root. The pulmonary artery is normal size. Normal inferior vena cava. Pericardium/Pleural No pericardial effusion. Medication 20 gauge I.V. with prn adaptor inserted into right arm. Diluted definity 3ml given slow IV push to enhance endocardial definition. MMode/2D Measurements & Calculations LVIDd: 5.4 cm IVSd: 0.65 cm Ao root diam: 3.3 cm LVIDs: 3.1 cm LVPWd: 0.80 cm LA dimension: 3.8 cm RVDd: 3.1 cm FS: 41.7 % LAV(MOD-bp): 51.7 ml LA A4 area: 17.4 cm2 RA A4 area: 13.9 cm2 LAV(MOD-bp) Indexed: 25.0 ml/m2 LAV(MOD-sp2): 55.3 ml LAV(MOD-sp4): 45.9 ml Time Measurements MV dec time: 0.17 sec Doppler Measurements & Calculations MV E max star: 96.1 cm/sec Lat Peak E' Star: 10.5 cm/sec Med Peak E' Star: 10.2 cm/sec MV A max star: 89.4 cm/sec E/E' lat: 9.1 E/E' med: 9.5 MV E/A: 1.1 MV V2 max: 120.4 cm/sec MV P1/2t max star: 120.4 cm/sec Ao V2 max: 175.3 cm/sec MV max P.8 mmHg MV P1/2t: 62.9 msec Ao max P.3 mmHg MV V2 mean: 74.6 cm/sec MV dec slope: 561.0 cm/sec2 Ao V2 mean: 126.3 cm/sec MV mean P.5 mmHg Ao mean P.3 mmHg MV V2 VTI: 27.6 cm MVA(P1/2t): 3.5 cm2 Ao V2 VTI: 39.5 cm LV V1 max: 143.1 cm/sec PA V2 max: 91.9 cm/sec TR max star: 272.7 cm/sec LV V1 max P.2 mmHg TR max P.7 mmHg ECHO/Echo Complete W/ Contrast Interpretation Summary Normal LV size. Left ventricular systolic function is normal. The estimated ejection fraction is 65 %. Stage 2 diastolic dysfunction. Contrast injection was performed. Structurally normal valves. Ordering Physician: Elvis Mckeon Performed By: Marvin Manzanares RCS
--- NOTE | 2022-04-14 05:48 | PFTCOMP_ITS ---
COMPLETE PULMONARY FUNCTION TEST INTERPRETATION Brief HPI: Patient is a 62-year-old female, currently under the care of Dr. Mckeon, who presents to [facility] for complete pulmonary function tests secondary to diagnosis of dyspnea. Respiratory therapist reports good effort and reproducible results. Interpretation: Forced expiration spirometry shows no large airways obstructive ventilatory defect with an FEV1 of 66% predicted. There is no significant bronchodilator response by strict ATS criteria. Spirograms are of good quality and plateau normally. The respiratory flow volume loop shows a normal pattern. Lung volumes by body plethysmography show a decreased total lung capacity at 3.5 L, 79% predicted. All other lung volumes are within normal limits. Diffusion capacity by carbon monoxide is normal at 86% predicted. The airway resistance is slightly elevated. No previous pulmonary function tests were available for review. Impression: Mild restrictive ventilatory defect with relatively preserved diffusion capacity
== END 2022-04-13 23:59 | disposition home or self-care (01) ==
LOC: CVS 07:09
PROVIDERS: Visit Provider Family Medicine
DX: R06.02 Shortness of breath (principal)
CPT/HCPCS: 93306; 94060; 94726; 94729; Q9957; A4216; C8929

== ENCOUNTER → 2022-06-02 | Outpatient (CLI) | payer BC, MEDICAID, SELFPAY ==
[2022-06-02 10:30] LABS: Hematocrit 41.2 % (37-47); Hemoglobin 13.1 g/dL (12.0-15.0); Mean Corp Hgb Conc 31.8 g/dL (32-36); Mean Corpuscular Hgb 27.8 pg (27.0-32.0); Mean Corpuscular Volume 87.3 fL (81-99); Mean Platelet Vol. 9.1 fl (6.2-12.0); Platelet Count 399 K/mm3 (150-450); RBC Distribution Width CV 14.4 % (11.6-14.6); RBC Distribution Width SD 45.8 fl (35.1-43.9); Red Blood Count 4.72 M/mm3 (4.2-5.4); White Blood Count 12.6 K/mm3 (4.4-11.0)
[2022-06-02 10:52] LABS: BNP,B-Type NATRIURETIC PEPTIDE 19.8 pg/mL (0-100)
[2022-06-02 10:58] LABS: ALB/GLOB Ratio 1.1 RATIO (0.9-2.4); AST(SGOT) 12 U/L (15-37); Alanine Aminotransfer ALT/SGPT 28 U/L (13-56); Albumin, Serum 3.6 g/dL (3.2-5.0); Alkaline Phosphatase 58 U/L (45-117); Anion Gap 9 (5-15); BUN 14 mg/dL (7-18); Calcium,Total 9.2 mg/dL (8.5-10.1); Chloride 101 mmol/L (98-107); Cholesterol 118 mg/dL (200); EST Glomerular Filtration Rate 90 mL/min (>60); Est Glom Filt Rate - Afr Amer 109 mL/min (>60); Globulin 3.3 g/dL (2.2-4.2); Glucose 97 mg/dL (74-106); High Density Lipoprotein 70 mg/dL; Potassium 3.8 mmol/L (3.5-5.1); Protein, Total 6.9 g/dL (6.4-8.2); Sodium Level 138 mmol/L (136-145); Triglycerides 97 mg/dL; Very Low Density Lipoprotein 19 mg/dL (5-40)
[2022-06-02 10:59] LABS: Hemoglobin A1c 6.9 % (3.8-5.6)
== END | disposition home or self-care (01) ==
LOC: LAB 09:54
PROVIDERS: Visit Provider Nurse Practitioner Family
DX: E11.65 Type 2 diabetes mellitus with hyperglycemia (principal); E78.2 Mixed hyperlipidemia
CPT/HCPCS: 36415; 80053; 80061; 83036; 83880; 85027

== ENCOUNTER → 2022-06-30 | Outpatient (CLI) | payer BC, MEDICAID, SELFPAY ==
[2022-06-30 09:08] LABS: Anion Gap 8 (5-15); BUN 15 mg/dL (7-18); BUN/Creat Ratio 23.2 RATIO (10-20); Calcium,Total 8.9 mg/dL (8.5-10.1); Chloride 105 mmol/L (98-107); Creatinine, Serum 0.65 mg/dL (0.55-1.02); EST Glomerular Filtration Rate 99 mL/min (>60); Est Glom Filt Rate - Afr Amer 120 mL/min (>60); Glucose 113 mg/dL (74-106); Sodium Level 140 mmol/L (136-145)
== END | disposition home or self-care (01) ==
LOC: LAB 08:01
PROVIDERS: Referring Provider Nurse Practitioner Family; Visit Provider Nurse Practitioner Family
DX: E11.65 Type 2 diabetes mellitus with hyperglycemia (principal); I10 Essential (primary) hypertension
CPT/HCPCS: 36415; 80048

== ENCOUNTER → 2022-07-02 | Outpatient (CLI) | payer BC, MEDICAID, SELFPAY ==
[2022-07-08 22:06] LABS: Alternaria tenuis 0.27 kU/L (Class 0/I); Ash, White <0.10 kU/L (Class 0); Aspergillus fumigatus <0.10 kU/L (Class 0); Bermuda Grass <0.10 kU/L (Class 0); Birch <0.10 kU/L (Class 0); Black Walnut <0.10 kU/L (Class 0); Cat Hair / Dander,Stand <0.10 kU/L (Class 0); Cedar, Mountain <0.10 kU/L (Class 0); Cladosporium herbarum <0.10 kU/L (Class 0); Cockroach, American 0.14 kU/L (Class 0/I); Cottonwood <0.10 kU/L (Class 0); D farinae Mite 0.15 kU/L (Class 0/I); D pteronyssinus 0.16 kU/L (Class 0/I); Dog Epithelia <0.10 kU/L (Class 0); Elm, American White <0.10 kU/L (Class 0); Immunoglobulin E 1161 IU/mL (6-495); Maple/Box Elder <0.10 kU/L (Class 0); Mulberry, White <0.10 kU/L (Class 0); Oak, White <0.10 kU/L (Class 0); Pecan <0.10 kU/L (Class 0); Penicillium Notatum <0.10 kU/L (Class 0); Pigweed, Rough <0.10 kU/L (Class 0); Ragweed, Short/Common <0.10 kU/L (Class 0); Russian Thistle <0.10 kU/L (Class 0); Sheep Sorrel <0.10 kU/L (Class 0); Sycamore, American <0.10 kU/L (Class 0); Timothy Grass <0.10 kU/L (Class 0)
[2022-07-08 22:37] LABS: Mouse Urine <0.10 kU/L (Class 0)
[2022-07-09 19:24] LABS: Immunoglobulin E 1407 IU/mL (6-495)
== END | disposition home or self-care (01) ==
LOC: LAB 12:00
PROVIDERS: Visit Provider Internal Medicine
DX: J45.909 Unspecified asthma, uncomplicated (principal); J44.9 Chronic obstructive pulmonary disease, unspecified; J32.9 Chronic sinusitis, unspecified
CPT/HCPCS: 36415; 82785; 86003

== ENCOUNTER → 2022-07-13 | Outpatient (CLI) | payer BC, MEDICAID, SELFPAY | END | disposition home or self-care (01) | LOC: SL 20:23 | PROVIDERS: Referring Provider Internal Medicine; Visit Provider Internal Medicine | DX: G47.30 Sleep apnea, unspecified (principal); J45.909 Unspecified asthma, uncomplicated; J32.9 Chronic sinusitis, unspecified | CPT/HCPCS: 95810 ==

== ENCOUNTER → 2022-07-30 | Outpatient (CLI) | payer BC, MEDICAID, SELFPAY ==
--- NOTE | 2022-07-31 05:59 | SPIR_ITS ---
Spirometry PFT Testing Spirometry PFT Testing: COMPLETE PULMONARY FUNCTION TEST INTERPRETATION Brief HPI: Patient is a 62-year-old female, currently under the care of Dr. Barrera, who presents to [facility] for complete pulmonary function tests secondary to diagnosis of asthma. Respiratory therapist reports good effort and reproducible results. Interpretation: Forced expiration spirometry shows no large airways obstructive ventilatory de fect with an FEV1 of 72% predicted. There is no significant bronchodilator response by strict ATS criteria. Spirograms are of good quality and plateau normally. The respiratory flow volume loop shows a normal pattern. Compared to previous pulmonary function tests from 04/13/2022, there has been no significant change. Impression: Grossly normal spirometry with no change compared to March. Restrictive component cannot be excluded by this testing, but patient recently had a complete pulmonary function test.
== END | disposition home or self-care (01) ==
LOC: PSN 12:51
PROVIDERS: Referring Provider Internal Medicine; Visit Provider Internal Medicine
DX: J45.909 Unspecified asthma, uncomplicated (principal)
CPT/HCPCS: 94060

== ENCOUNTER → 2022-08-10 | Outpatient (CLI) | payer BC, MEDICAID, SELFPAY ==
--- NOTE | 2022-08-10 15:22 | BI_ITS ---
MAMMOGRAPHY - BILATERAL SCREENING REASON FOR EXAM: Female, 62 years old. Routine annual screening examination. PERTINENT HISTORY: Non-contributory. TECHNIQUE: Digital bilateral breast guero (3D mammographic acquisition) in the CC and MLO projections. 2-D mediolateral oblique (MLO) and craniocaudad (CC) views of both breasts were obtained. CAD: Full Field Digital Mammography with Computer Added Detection was performed. COMPARISON: Comparison is made with prior study of July 26, 2020 and June 01, 2019. FINDINGS: Breast Composition: The breasts are almost entirely fatty. There are no dominant masses or suspicious calcifications. No other significant abnormalities are identified. There has been no significant change since the prior study. BI/SCRN MAMM (CAD)W/GUERO BILAT IMPRESSION: Stable bilateral screening mammogram. Yearly follow-up mammogram recommended. (A) ASSESSMENT CATEGORY: BIRADS Category 1: Negative. A letter regarding these results will be sent to the patient by the facility within 30 days. Approximately 10% of breast cancers are not detected by mammography. A normal mammogram should not delay biopsy of a clinically suspicious abnormality. [id number] Electronically Signed: Yves Lino MD at 13:45 EDT ,
== END | disposition home or self-care (01) ==
LOC: OPBI 15:21
PROVIDERS: Referring Provider Nurse Practitioner Women's Health; Visit Provider Nurse Practitioner Women's Health
DX: Z12.31 Encounter for screening mammogram for malignant neoplasm of breast (principal)
CPT/HCPCS: 77063; 77067

== ENCOUNTER → 2022-08-15 | Outpatient (CLI) | payer BC, MEDICAID, SELFPAY ==
[2022-08-15 18:38] LABS: M R Staph aureus DNA By PCR POSITIVE (Negative); Probe Check PASS; Staph aureus DNA By PCR POSITIVE (Negative)
== END | disposition home or self-care (01) ==
PROVIDERS: Visit Provider Ophthalmology
DX: H00.031 Abscess of right upper eyelid (principal)
CPT/HCPCS: 87070; 87075; 87077; 87186; 87205; 87640

== ENCOUNTER → 2022-08-17 | Outpatient (CLI) | payer BC, MEDICAID, SELFPAY ==
--- NOTE | 2022-08-17 16:03 | US_ITS ---
HISTORY: POSTMENOPAUSAL BLEEDING. TECHNIQUE: Transvaginal pelvic ultrasound was performed with hills scale , spectral Doppler, and color Doppler evaluation. 60 images. COMPARISON: 10/21/2020. FINDINGS: UTERUS: 7.7 x 4.5 x 6.1 cm. Heterogeneous echotexture with round lesions measuring up to 2 x 2.2 x 2.2 cm and 1.9 x 2.4 x 2.2 cm Nabothian cyst noted. ENDOMETRIAL THICKNESS: 12 mm. RIGHT OVARY: Not visualized. No adnexal masses LEFT OVARY: 1.1 x 1.6 x 1.1 cm with vascular flow demonstrated. No adnexal masses FREE FLUID: None. US/Transvaginal Non- IMPRESSION: Leiomyomatous uterus with small masses measuring up to 2.4 cm. Thickening of the endometrial complex which may be secondary to submucosal leiomyoma, endometrial polyposis, hyperplasia, or neoplasm. Recommend correlation with endometrial biopsy in a patient with postmenopausal bleeding. Electronically Signed: Dora Russ MD at 8:38 EDT ,
== END | disposition home or self-care (01) ==
LOC: US 16:00
PROVIDERS: Referring Provider Nurse Practitioner Women's Health; Visit Provider Nurse Practitioner Women's Health
DX: N95.0 Postmenopausal bleeding (principal)
CPT/HCPCS: 76830

== ENCOUNTER → 2022-08-23 | Outpatient (CLI) | payer OTHER, MEDICAID, SELFPAY ==
[2022-08-23] MEDS: Zolpidem Tartrate 5 MG Tablet PO (21:31)
== END | disposition home or self-care (01) ==
PROVIDERS: Referring Provider Internal Medicine; Visit Provider Internal Medicine
DX: G47.30 Sleep apnea, unspecified (principal)
CPT/HCPCS: 95810

== ENCOUNTER → 2022-09-15 | Outpatient (CLI) | payer OTHER, MEDICAID, SELFPAY ==
[2022-09-15 09:52] LABS: Absolute Lymphocyte Count 1.95 X10^3/uL (0.83-4.51); Basophil# 0.04 X10^3/uL; Basophil% 0.4 % (0-1); Eosinophil# 0.17 X10^3/uL; Eosinophils% 1.5 % (0-5); Hematocrit 38.6 % (37-47); Hemoglobin 12.4 g/dL (12.0-15.0); Lymphocyte # 1.95 X10^3/ul (0.83-4.51); Lymphocyte % 17.6 % (19-41); Mean Corp Hgb Conc 32.1 g/dL (32-36); Mean Corpuscular Hgb 28.6 pg (27.0-32.0); Mean Corpuscular Volume 88.9 fL (81-99); Monocyte# 0.94 X10^3/uL; Monocyte% 8.5 % (0-10); NRBC Flagged by Analyzer 0 % (0-5); Neutrophil # 7.97 X10^3/uL (2.7-7.7); Neutrophil % 71.7 % (47-70); Platelet Count 324 K/mm3 (150-450); RBC Distribution Width CV 14.7 % (11.6-14.6); RBC Distribution Width SD 47.7 fl (35.1-43.9); Red Blood Count 4.34 M/mm3 (4.2-5.4); White Blood Count 11.1 K/mm3 (4.4-11.0)
[2022-09-15 10:01] LABS: BNP,B-Type NATRIURETIC PEPTIDE 12.7 pg/mL (0-100)
[2022-09-15 10:13] LABS: ALB/GLOB Ratio 1.1 RATIO (0.9-2.4); AST(SGOT) 21 U/L (15-37); Alanine Aminotransfer ALT/SGPT 33 U/L (13-56); Albumin, Serum 3.4 g/dL (3.2-5.0); Alkaline Phosphatase 72 U/L (45-117); Anion Gap 4 (5-15); BUN 19 mg/dL (7-18); BUN/Creat Ratio 30.8 RATIO (10-20); Calcium,Total 8.9 mg/dL (8.5-10.1); Chloride 107 mmol/L (98-107); Creatinine, Serum 0.62 mg/dL (0.55-1.02); D-Dimer Quantitative (DVT/PE) < 0.27 FEU/ug/m (0.27-0.49); EST Glomerular Filtration Rate 104 mL/min (>60); Est Glom Filt Rate - Afr Amer 126 mL/min (>60); Glucose 112 mg/dL (74-106); Potassium 3.8 mmol/L (3.5-5.1); Protein, Total 6.4 g/dL (6.4-8.2); Sodium Level 137 mmol/L (136-145); Thyroid Stim Hormone (TSH) 1.66 uIU/mL (0.358-3.74)
[2022-09-15 10:30] LABS: Color, Urine Yellow (Yellow); Glucose, Dipstick Normal (Normal); Ketone-Dipstick Negative (Negative); Leukocyte Esterase-Dipstick 25 /ul (Negative); Nitrite-Dipstick Negative (Negative); Occult Blood-Urine Negative /ul (Negative); Protein-Dipstick Negative (Negative); Urine Bilirubin Dipstick Negative (Negative); Urine Clarity Clear (Clear); Urine Urobilinogen Normal (Normal)
== END | disposition home or self-care (01) ==
LOC: LAB 09:09
PROVIDERS: Referring Provider Nurse Practitioner Family; Visit Provider Nurse Practitioner Family
DX: R60.9 Edema, unspecified (principal); R39.15 Urgency of urination
CPT/HCPCS: 36415; 80053; 81002; 83880; 84443; 85025; 85379; 87086; 87088

== ENCOUNTER 2022-10-01 06:32 | Day surgery (SDC) | payer OTHER, MEDICAID, SELFPAY ==
--- NOTE | 2022-10-01 | GASB_PTH ---
PATIENT: THUAN BETANCOURT LOC: [facility] U#:[id number] AGE/SX: 62/F ROOM: RE10/01/[address]: Dr. Yessenia Ndiaye MD : 1960 BED: DIS: 10/01/2022 SPEC #: [id number] RECD: 10/01/22 11:12 STATUS: HAYES REQ #: [id number] GALILEO: 10/01/22 00:[address]: Yessenia Ndiaye DEPT: SURGICAL PATHOLOGY RECD BY: Puneet Naranjo ENTERED: 10/01/22 11:12 SP TYPE: Gastric Bx OTHR DR: Luz [facility] Tissues: A - Gastric mucous membrane B - Gastric mucous membrane C - Rectum, NOS Procedures: Special Stain Group II Surgery Specimen Level IV Alcian Blue/PAS (control) HEADER OPERATION: Colonoscopy with polypectomy, E[place] ([facility] [place] with biopsies PRE-OP DIAGNOSIS: Perirectal abscess, bloating, screening TISSUE SUBMITTED: A ? Antrum biopsy for H. pylori and path, B - Gastroesophageal junction biopsy, C ? Rectal polyps MICROSCOPIC DIAGNOSIS A. Gastric antrum, biopsy: Mild chronic inflammation. See comment. B. Gastroesophageal junction, biopsy: Fragment of gastric mucosa with mild chronic inflammation. No evidence of goblet cell metaplasia. See comment. C. Rectal polyps, biopsy: Fragments of hyperplastic polyp. AM:jorge 10/02/2022 COMMENT A. The results of immunohistochemistry for Helicobacter pylori will be reported separately ([id number]). B. Alcian blue/PAS stain with matched control supports the above diagnosis. MICROSCOPIC DESCRIPTION Slides are reviewed. GROSS DESCRIPTION A - Received in fixative is one container labeled with the patient's name and designated antrum biopsy. The specimen consists of one irregular fragment of light infante soft tissue that measures 0.5 x 0.3 x 0.1 cm. The specimen is totally submitted in one cassette. B - Received in fixative is one container labeled with the patient's name and designated GE junction biopsy. The specimen consists of one irregular fragment of light infante soft tissue that measures 0.4 x 0.4 x 0.1 cm. The specimen is totally submitted in one cassette. C - Received in fixative is one container labeled with the patient's name and designated rectal polyp. The specimen consists of multiple irregular fragments of light infante soft tissue that in aggregate measure 1.0 x 0.4 x 0.1 cm. The specimen is totally submitted in one cassette. / SJ:rg 10/01/2022 TC:5 CPT: 87395 x3, [id number]
[2022-10-01 07:05] VITALS: BP 126/61; PULSE 71; RESP 18; TEMP 36.1; O2SAT 99; BMI 39.4
--- NOTE | 2022-10-01 07:14 | HP.PCM_ITS ---
HPI - General General Date of Admission: 10/01/22 HPI Narrative THUAN BETANCOURT, is a 62 F who presents for screening colonoscopy and EGD. Patient states that her reflux symptoms at night have improved on the omeprazole however she still does have about the same bloating which patient states she has pretty constantly. Patient states that her diarrhea has improved and she has been off them metformin. Patient denies any changes family history or medical history since last office visit. office visit 08/16/22 HPI HPI: 60-year-old female presents for possible pilonidal cyst with abscess history.? Patient states she has had this for about 7 years occurs off and on patient states the area will be inflamed and will drain purulent material.? States this happens about once a month.? Patient states she is brought up once to a physician but they never did anything that she sought out care and just dealt with it.? Patient never had any antibiotics for this specifically she was recently on antibiotics for a UTI which she thinks helped this area healed.? Patient states she seems to notice this becoming inflamed when she is constipated.? Patient has never had previous colonoscopy.? Patient denies family history of colon cancer?however she does not know much about her father's side of the family.? Patient has bowel movements daily denies any blood.? Patient states she drinks plenty of water does have occasional issues with constipation she is unsure how much fiber she gets daily.? Patient states that she she does have bloating constantly and reflux maybe once every 3 to 4 months.? Patient states she is unable to eat any spicy foods or foods with tomato sauces and also only eats small meals and cannot eat before bed.? Patient has tried taking some Gas-X occasionally for the bloating but she still continues to have the symptom. [facility] Medical History (Updated 09/27/22 @ 14:58 by Madelaine Archuleta) Allergic rhinitis due to allergen Anxiety Arthritis Arthritis Asthma Back pain Chronic obstructive asthma (with obstructive pulmonary disease) CPAP (continuous positive airway pressure) dependence Dietary restriction Difficulty balancing Elevated IgE level Fatigue Former smoker Gastric reflux Glaucoma History of echocardiogram History of edema History of irregular heartbeat History of pain when walking History of steroid therapy HTN (hypertension) Insulin dependent diabetes mellitus Leg cramps Post-menopausal Shortness of breath on exertion Shoulder pain Sleep apnea SOB (shortness of breath) Wears dentures Wears glasses Home Medications metformin 1,000 mg tablet 1,000 mg PO BIDCM DIABETES 07/08/17 [History Last Taken 07/08/17 1000 MG] rosuvastatin 10 mg tablet 10 mg PO QHS CHOLESTEROL 07/08/17 [History Last Taken 07/08/17 10 MG] spironolactone 25 mg tablet 25 mg PO DAILY BLOOD PRESSURE 07/08/17 [History Last Taken 01/15/20 08:15] cyanocobalamin (vitamin B-12) 5,000 mcg disintegrating tablet 5,000 mcg PO DAILY 01/14/20 [History Last Taken Unknown] loratadine 10 mg capsule 10 mg PO DAILY 01/14/20 [History Last Taken Unknown] magnesium oxide 400 mg PO DAILY 01/14/20 [History Last Taken Unknown] multivitamin with minerals 1 ea PO DAILY 01/14/20 [History Last Taken Unknown] dulaglutide 1.5 mg/0.5 mL subcutaneous pen injector (Trulicity) 1.5 ml subcut SA 07/02/22 [History Last Taken Unknown] pioglitazone 30 mg tablet 30 mg PO DAILY 07/02/22 [History Last Taken Unknown] umeclidinium 62.5 mcg-vilanterol 25 mcg/actuation powdr for inhalation (Anoro Ellipta) 1 inh inhalation DAILY #60 ea 07/02/22 [Rx Last Taken Unknown] ipratropium bromide 21 mcg (0.03 %) nasal spray 1 spray intranasal BID rhinitis #30 mL 08/02/22 [Rx Last Taken Unknown] omeprazole 40 mg capsule,delayed release 40 mg PO QDAY #30 caps 08/16/22 [Rx Last Taken Unknown] albuterol sulfate 90 mcg/actuation aerosol inhaler 1 inh inhalation Q6H PRN ASTHMA 09/27/22 [History Last Taken Unknown] cholecalciferol (vitamin D3) 50 mcg (2,000 unit) capsule (Vitamin D3) 50 mcg PO DAILY 09/27/22 [History Last Taken Unknown] insulin glargine 100 unit/mL (3 mL) subcutaneous pen (Lantus Solostar U-100 Insulin) 60 unit subcut QPM 09/27/22 [History Last Taken Unknown] losartan 50 mg tablet 50 mg PO DAILY 09/27/22 [History Last Taken 10/01/22 05:50] montelukast 10 mg tablet (Singulair) 10 mg PO QHS 05/11/23 [History Last Taken Unknown] triamcinolone acetonide 55 mcg nasal spray aerosol (Nasacort Allergy) 1 spray intranasal QHS 09/27/22 [History Last Taken Unknown] Allergy/AdvReac Type Severity Reaction Status Date / Time mold Allergy Intermediate Other Verified 10/01/22 07:03 Seasonal Allergies: Uncoded Allergy ASTHMA Verified 10/01/22 07:03 [environmental] LIKE SYMPTOMS Family History Other Arthritis CVA (cerebral vascular accident) Diabetes Emphysema of lung FH: cataracts Glaucoma Gout Heart disease Kidney disease Lung disease Porphyria Surgical History (Updated 09/27/22 @ 14:58 by Madelaine Archuleta) H/O removal of cyst History of cystoscopy History of tonsillectomy History of tubal ligation Social History Smoking Status: Former smoker alcohol intake: never Past Medical/Surgical History Planned Operation Planned Operative Procedure/s: EGD/CSCOPE S.O.S: No Previous Hospitalizations/Surgeries HX Hospitalizations: No HX of Surgeries: tubal ligation teeth extraction toenail removed t&a Any Problems With Anesthesia: No You/Your Family Experience Fever (Hyperthermia) With Anes: No Cholinesterase deficiency: No Cardiovascular Hx Chest Pain within Last 2 months: No Hx of Irregular Heartbeat and/or Afib: No (skips a beat) Hx Heart Attack: No Hx Congestive Heart Failure: No Hx Rheumatic Fever: No Hx Hypertension: Yes (CONTROLLED WITH MED FOR THE MOST PART PER PATIENT) Hx Internal Defibrillator: No Hx Pacemaker: No Hx Cardiac Catheterization: No Hx Cardiac Surgery/Stents/Etc.: No Hx Stress Test: No Hx Pain in Legs when Walking/Leg Cramps: Yes (occ pain) Respiratory Chronic Cough: No HX of Shortness of Breath: Yes (sob with 2 flights of stairs) Hx Chronic Obstructive Pulmonary Disease (COPD): Yes (prn inhaler) Hx Asthma: Yes Hx Emphysema: No Hx Sleep Apnea: Yes CPAP: Yes BIPAP: No Hx Respiratory Tract Infection/Cold (presently): No (ALLERGIES) Result (for STOP score): Positive Hx Smoking: Yes (quit 8 yrs ago) Smoking Status: Former smoker Gastrointestinal Hx Gastroesophageal Reflux: No (occ heartburn) Hx Gastrointestinal Disorders: Yes (ibs) Hx Gastrointestinal Bleed: No Hx Ulcer: No Hx Hiatal Hernia: No Difficulty Chewing/Swallowing: No Special diet followed at home: Yes (ada) Hx Unplanned Weight Loss of 20#: No HX Unplanned Weight Gain of 20#: No Neurological Hx Seizures: No HX Syncope/Blackout Spells/Unconsciousness: No Hx Transient Ischemic Attacks (TIA): No Hx Multiple Sclerosis: No Hx Parkinson's Disease: No Hx Head/Neck Injury: No Hx Headaches: Yes (occ) Hx Back Injury/Pain: Yes (lower back pain) Recent Onset of Speech Difficulty: No Restless Legs: Yes Does patient have nerve stimulator: No Blood Disorder Hx Leukemia: No Bleeding Tendencies: No Hx Deep Vein Thrombosis: No Hx High Cholesterol: Yes (on med) Blood Transmitted Disease: No Hx Hepatitis: No Hx Cirrhosis: No Hx Anemia: No Hx Blood Disorders: No Reproduction : No Is Patient Lactating: No Hx Hysterectomy: No Hx Tubal Ligation: Yes Are You Post Menopause: Yes Genitourinary Hx Renal Disease: Yes (kidney stone) Hx Dialysis: No Musculoskeletal Hx Arthritis: Yes Hx Rheumatoid Arthritis: No Hx Gout: No Recent Onset of an Orthopedic Problem: No Endocrine Hx Diabetes: Yes Insulin: Yes Thyroid Disease: No Hx Steroid Therapy: No Psycho/Social Hx Substance Use: No Hx Alcohol Use: No Hx Anxiety: Yes (on med) Hx Depression: No Mental Illness: No Hx Dementia: No Miscellaneous Hx Cancer: No Recent Exposure to Contagious Disease: No Hx of C-Diff: No Any Loose Teeth: No (dentures) Allergies mold Allergy (Intermediate, Verified 10/01/22 07:03) Other sinus reactions Seasonal Allergies: Uncoded [environmental] Allergy (Verified 10/01/22 07:03) ASTHMA LIKE SYMPTOMS Discharge Is Pt Admitted From a Long Term, or a Shelter: No After D/C, Where Do you Plan to Go: Return Home From the [facility] History Number of Risk Factors: 6 Vital Signs Vital Signs Vital Signs: 10/01/22 07:04 10/01/22 07:05 Temperature 97.0 F L Temperature Source Temporal Pulse Rate 71 Respiratory Rate 18 Respiratory Pattern Normal Blood Pressure 126/61 H Blood Pressure Mean 82 Blood Pressure Source Monitor Blood Pressure Position Semi-Fowlers Blood Pressure Location Right Arm Pulse Ox 99 Oxygen Delivery Method Room Air Weight Weight: 235 lb 6.4 oz Body Mass Index (BMI) 39.4 Physical Exam Const alert, oriented x3 and no apparent distress HEENT normocephalic and head/scalp atraumatic Resp normal respiratory effort Cardio regular rate GI soft to palpation and non-tender; Negative for non-distended Palpation: Negative for guarding Extremity no clubbing, cyanosis or edema Neuro CN's II-XII intact bilaterally Psych mental status grossly normal Assessment & Plan Assessment/Plan (1) Betyte-rectal abscess: (2) Bloating symptom: (3) Screening for colon cancer: Surgery Risks - Colonoscopy I discussed with the patient the risks of the procedure: Yes Risks Include but are not Limited To: Plan for EGD and colonoscopy. Risks include but are not limited to: Bleeding, perforation requiring further surgery, inability to complete colonoscopy requiring barium enema.
[2022-10-01] MEDS: Lactated Ringers 1,000 ML 15 ML IV (07:26)
--- NOTE | 2022-10-01 07:30 | IMM_PTH ---
PATIENT: THUAN BETANCOURT LOC: EN U#:[id number] AGE/SX: 62/F ROOM: RE10/01/[address]: Dr. Yessenia Ndiaye MD : 1960 BED: DIS: 10/01/2022 SPEC #: [id number] RECD: 10/01/22 13:38 STATUS: HAYES REQ #: [id number] GALIELO: 10/01/22 07:[address]: Yessenia Ndiaye DEPT: IMMUNOHISTOCHEMISTRY RECD BY: Patito Pro ENTERED: 10/01/22 13:39 SP TYPE: IMMUNO OTHR DR: Luz [facility] Tissues: A - Stomach, NOS Procedures: H Pylori (initial) PHYSICIAN & INSTITUTION [place] [id number] SPECIMEN INFORMATION: Tissue Source: A ? Antrum biopsy Clinical Info: Perirectal abscess, bloating, screening Specimen Number: [id number] CPT code: 20246 METHODOLOGY: Deparaffinized sections of prefer/formalin-fixed tissue or PAP/DQ stained slides are incubated with monoclonal/polyclonal antibodies/oligonucleotide probes. Localization is made via biotin free immunoperoxidase method. Appropriate controls are performed and reacted as expected. Results on target cell population are indicated in the following table: RESULTS: ANTIBODY / CLONE RESULT Block A H Pylori (polyclonal) negative These tests were developed and their performance characteristics determined by [facility]. They may not have been cleared or approved by the U.S. Food and Drug Administration. The FDA has determined that such clearance or approval is not necessary. The above immunohistochemical/dualISH markers are ordered and reviewed by the Pathologist. INTERPRETATION: A. Antrum, biopsy: Negative for Helicobacter pylori organisms. AM:jorge 10/03/2022
[2022-10-01 07:31] LABS: Bedside Glucose 110 mg/dL (74-106)
[2022-10-01 08:20] VITALS: BP 126/61; BP 146/70; PULSE 74; RESP 16; TEMP 37.4; O2SAT 94
[2022-10-01 08:25] VITALS: BP 126/61; BP 140/65; PULSE 74; RESP 16; O2SAT 96
[2022-10-01 08:30] VITALS: BP 126/61; BP 146/70; PULSE 73; RESP 16; O2SAT 96
[2022-10-01 08:35] VITALS: BP 126/61; BP 126/73; PULSE 75; RESP 16; TEMP 36.4; O2SAT 95
--- NOTE | 2022-10-01 08:41 | OP.COLON_ITS ---
Patient Name: Aurora Gadrner Procedure Date: 10/01/2022 7:44 AM Date of : 1960 Age: 62 Procedure: Colonoscopy Indications: Screening for colorectal malignant neoplasm Providers: Yessenia Ndiaye MD Medicines: Monitored Anesthesia Care Patient Profile: This is a 62 year old female. Last Colonoscopy: none. The patient's first colonoscopy is today. Complications: No immediate complications. Procedure: Pre-Anesthesia Assessment: - Prior to the procedure, a History and Physical was performed, and patient medications and allergies were reviewed. The patient's tolerance of previous anesthesia was also reviewed. The risks and benefits of the procedure and the sedation options and risks were discussed with the patient. All questions were answered, and informed consent was obtained. Prior Anticoagulants: The patient has taken no previous anticoagulant or antiplatelet agents. ASA Grade Assessment: Per anesthesia. After reviewing the risks and benefits, the patient was deemed in satisfactory condition to undergo the procedure. After I obtained informed consent, the scope was passed under direct vision. Throughout the procedure, the patient's blood pressure, pulse, and oxygen saturations were monitored continuously. The Colonoscope was introduced through the anus and advanced to the cecum, identified by the appendiceal orifice, ileocecal valve and palpation. The colonoscopy was performed without difficulty. The patient tolerated the procedure well. The quality of the bowel preparation was good. Scope In: 7:47:16 AM Scope Withdrawal Time 0 hours 19 minutes 0 seconds Scope Out: 8:14:19 AM Total Procedure Duration Time 0 hours 27 minutes 3 seconds Findings: The perianal and digital rectal examinations were normal. Multiple small-mouthed diverticula were found in the sigmoid colon and descending colon. Two sessile polyps were found in the rectum. The polyps were less than 5 mm in size. These polyps were removed with a hot snare. Resection and retrieval were complete. The exam was otherwise without abnormality on direct and retroflexion views. Impression: - Diverticulosis in the sigmoid colon and in the descending colon. - Two less than 5 mm polyps in the rectum, removed with a hot snare. Resected and retrieved. - The examination was otherwise normal on direct and retroflexion views. Recommendation: - Discharge patient to home. - Resume previous diet. - Continue present medications. - Await pathology results. - Repeat colonoscopy in 5-10 years for surveillance based on pathology results. Procedure Code(s): --- Professional --- 38059, PT, Colonoscopy, flexible; with removal of tumor(s), polyp(s), or other lesion(s) by snare technique Diagnosis Code(s): --- Professional --- Z12.11, Encounter for screening for malignant neoplasm of colon K62.1, Rectal polyp K57.30, Diverticulosis of large intestine without perforation or abscess without bleeding CPT copyright 2017 [employer]. All rights reserved. The codes documented in this report are preliminary and upon remote medical coder review may be revised to meet current compliance requirements. MD Yessenia Swift MD 10/01/2022 8:41:11 AM This report has been signed electronically. Number of Addenda: 0 Note Initiated On: 10/01/2022 7:44 AM
--- NOTE | 2022-10-01 08:41 | OP.CCLET_ITS ---
[facility]01[facility]2022 [facility] for Aurora [facility] This procedure was performed on Saturday, October 01, 2022. My impressions and recommendations are as follows: Impressions : - Z-line irregular, 40 cm from the incisors. Biopsied. - Normal examined duodenum. - Erythematous mucosa in the antrum. Biopsied. Recommendations : - Await pathology results. - Discharge patient to home. - Resume previous diet. - Continue present medications. - Use sucralfate tablets 1 gram PO QID for 2 weeks. My findings are described in the full procedure note, which is enclosed. If I can be of further assistance, please feel free to contact me at Doctor phone number(s): , Work: . Sincerely, MD Yessenia Swift MD 10/01/2022 8:40:48 AM This report has been signed electronically.
--- NOTE | 2022-10-01 08:41 | OP.EGD_ITS ---
Patient Name: Aurora Gardner Procedure Date: 10/01/2022 7:20 AM Date of : 1960 Age: 62 Procedure: Upper GI endoscopy Indications: Abdominal bloating Providers: Yessenia Ndiaye MD Medicines: Monitored Anesthesia Care Patient Profile: This is a 62 year old female. Complications: No immediate complications. Procedure: Pre-Anesthesia Assessment: - Prior to the procedure, a History and Physical was performed, and patient medications and allergies were reviewed. The patient's tolerance of previous anesthesia was also reviewed. The risks and benefits of the procedure and the sedation options and risks were discussed with the patient. All questions were answered, and informed consent was obtained. Prior Anticoagulants: The patient has taken no previous anticoagulant or antiplatelet agents. ASA Grade Assessment: Per anesthesia. After reviewing the risks and benefits, the patient was deemed in satisfactory condition to undergo the procedure. After obtaining informed consent, the endoscope was passed under direct vision. Throughout the procedure, the patient's blood pressure, pulse, and oxygen saturations were monitored continuously. The Colonoscope was introduced through the mouth, and advanced to the second part of duodenum. The upper GI endoscopy was accomplished without difficulty. The patient tolerated the procedure well. Scope In: 7:37:07 AM Scope Out: 7:43:59 AM Total Procedure Duration Time 0 hours 6 minutes 52 seconds Findings: The Z-line was irregular and was found 40 cm from the incisors. Biopsies were taken with a cold forceps for histology. The examined duodenum was normal. Mildly erythematous mucosa without bleeding was found in the gastric antrum. Biopsies were taken with a cold forceps for histology. Biopsies were taken with a cold forceps for Helicobacter pylori testing. The cardia and gastric fundus were normal on retroflexion. Impression: - Z-line irregular, 40 cm from the incisors. Biopsied. - Normal examined duodenum. - Erythematous mucosa in the antrum. Biopsied. Recommendation: - Await pathology results. - Discharge patient to home. - Resume previous diet. - Continue present medications. - Use sucralfate tablets 1 gram PO QID for 2 weeks. Procedure Code(s): --- Professional --- 50636, Esophagogastroduodenoscopy, flexible, transoral; with biopsy, single or multiple Diagnosis Code(s): --- Professional --- K22.8, Other specified diseases of esophagus K31.89, Other diseases of stomach and duodenum R14.0, Abdominal distension (gaseous) CPT copyright 2017 [employer]. All rights reserved. The codes documented in this report are preliminary and upon cnc mill programmer review may be revised to meet current compliance requirements. MD Yessenia Swift MD 10/01/2022 8:40:48 AM This report has been signed electronically. Number of Addenda: 0 Note Initiated On: 10/01/2022 7:20 AM
--- NOTE | 2022-10-01 08:42 | OP.CCLET_ITS ---
[facility] This procedure was performed on Saturday, October 01, 2022. My impressions and recommendations are as follows: Impressions : - Diverticulosis in the sigmoid colon and in the descending colon. - Two less than 5 mm polyps in the rectum, removed with a hot snare. Resected and retrieved. - The examination was otherwise normal on direct and retroflexion views. Recommendations : - Discharge patient to home. - Resume previous diet. - Continue present medications. - Await pathology results. - Repeat colonoscopy in 5-10 years for surveillance based on pathology results. My findings are described in the full procedure note, which is enclosed. If I can be of further assistance, please feel free to contact me at Doctor phone number(s): , Work: . Sincerely, MD Yessenia Swift MD 10/01/2022 8:41:11 AM This report has been signed electronically.
[2022-10-01 08:57] VITALS: BP 126/61
== END 2022-10-01 09:30 | disposition home or self-care (01) ==
LOC: EN 06:33 → AC 06:35
PROVIDERS: Visit Provider Surgery
PROC: 0DJD8ZZ Inspection of Lower Intestinal Tract, Via Natural or Artificial Opening Endoscopic (ICD-10-PCS; CPT 45378; principal; 2022-10-01 07:25)
DX: Z12.11 Encounter for screening for malignant neoplasm of colon (principal); Z79.4 Long term (current) use of insulin; E11.9 Type 2 diabetes mellitus without complications; K61.1 Rectal abscess; K62.1 Rectal polyp; K57.30 Diverticulosis of large intestine without perforation or abscess without bleeding; R14.0 Abdominal distension (gaseous); Z90.49 Acquired absence of other specified parts of digestive tract; Z87.891 Personal history of nicotine dependence; I10 Essential (primary) hypertension; K31.89 Other diseases of stomach and duodenum
CPT/HCPCS: 45385; 43239; 82962; 88305; 88313; 88342; J7120; J2405

== ENCOUNTER → 2022-10-26 | Outpatient (CLI) | payer OTHER, MEDICAID, SELFPAY ==
--- NOTE | 2022-10-26 | EMB_PTH ---
PATIENT: THUAN BETANCOURT LOC: [facility] U#:[id number] AGE/SX: 62/F ROOM: RE10/26/[address]: Dr. Corrine Au DO : 1960 BED: DIS: 10/26/2022 SPEC #: [id number] RECD: 10/26/22 15:51 STATUS: HAYES REViviane #: [id number] GALILEO: 10/26/22 00:[address]: Corrine Au DEPT: SURGICAL PATHOLOGY RECD BY: Mary Shultz ENTERED: 10/29/22 08:18 SP TYPE: ENDOM BX/C JONY DR: Luz [facility] Tissues: Endometrium, NOS Procedures: Surgery Specimen Level IV HEADER OPERATION: Endometrial biopsy PRE-OP DIAGNOSIS: Postmenopausal bleeding TISSUE SUBMITTED: Endometrial biopsy MICROSCOPIC DIAGNOSIS Endometrial biopsy: Fragments of inactive endometrium. Fragments of benign endocervical epithelium and blood clots. See comment. SJ:jorge 10/30/2022 COMMENT Clinical correlation and appropriate follow up are necessary. MICROSCOPIC DESCRIPTION Slides are reviewed. GROSS DESCRIPTION Received in fixative is one container labeled with the patient's name and designated endometrial biopsy. The specimen consists of multiple fragments of hemorrhagic soft tissue mixed with mucoid tissue that in aggregate measure 2.5 x 1.0 x 0.1 cm. The specimen is totally submitted in one cassette. / GARRICK:jorge 10/29/2022 TC:4 CPT: 16292
== END | disposition home or self-care (01) ==
LOC: LABSPEC 15:45
PROVIDERS: Visit Provider Student in an Organized Health Care Education/Training Program
DX: N95.0 Postmenopausal bleeding (principal)
CPT/HCPCS: 88305

== ENCOUNTER → 2022-11-10 | Outpatient (CLI) | payer OTHER, MEDICAID, SELFPAY ==
[2022-11-10 08:55] LABS: Estradiol < 11.0 pg/mL; Follicle Stimulating Hormone 21.2 mIU/mL; Luteinizing Hormone 10.4 mIU/mL
[2022-11-12 07:56] LABS: Progesterone Level < 0.21 ng/mL (See Comment)
== END | disposition home or self-care (01) ==
LOC: LAB 07:35
PROVIDERS: Referring Provider Student in an Organized Health Care Education/Training Program; Visit Provider Student in an Organized Health Care Education/Training Program
DX: N95.0 Postmenopausal bleeding (principal)
CPT/HCPCS: 36415; 82670; 83001; 83002; 84144

== ENCOUNTER → 2022-12-29 | Outpatient (CLI) | payer OTHER, MEDICAID, SELFPAY ==
[2022-12-29 10:10] LABS: Anion Gap 7 (5-15); BUN 15 mg/dL (7-18); BUN/Creat Ratio 23.3 RATIO (10-20); Calcium,Total 8.9 mg/dL (8.5-10.1); Chloride 105 mmol/L (98-107); Creatinine, Serum 0.64 mg/dL (0.55-1.02); EST Glomerular Filtration Rate 99 mL/min (>60); Est Glom Filt Rate - Afr Amer 120 mL/min (>60); Glucose 148 mg/dL (74-106); Potassium 3.8 mmol/L (3.5-5.1); Sodium Level 140 mmol/L (136-145)
[2022-12-29 10:17] LABS: Hemoglobin A1c 7.6 % (3.8-5.6)
[2022-12-29 10:23] LABS: Microalbumin,Random Urine 5.1 mg/L (NO RANGE EST.)
== END | disposition home or self-care (01) ==
PROVIDERS: Referring Provider Nurse Practitioner Family; Visit Provider Nurse Practitioner Family
DX: E11.65 Type 2 diabetes mellitus with hyperglycemia (principal)
CPT/HCPCS: 36415; 80048; 82043; 83036

== ENCOUNTER → 2023-01-12 | Outpatient (CLI) | payer OTHER, MEDICAID, SELFPAY ==
--- NOTE | 2023-01-12 07:59 | RAD_ITS ---
STUDY: X-RAY - CERVICAL SPINE REASON FOR EXAM: Female, 62 years old. CRVICALGIA -- -- PT STATES LOWER BACK PAIN TECHNIQUE: 5 view(s) of the cervical spine were obtained. COMPARISON: None FINDINGS: Normal anterior atlantoaxial articulation. Normal odontoid process. Normal cervical lordosis. There is multi-level endplate spondylosis. There is multi-level degenerative disc disease with multilevel disc space narrowing. Normal visualized intervertebral neuroforamina. The soft tissue structures are unremarkable. RAD/Cerv Spine 4 or 5 Views IMPRESSION: Mild degenerative disc disease of the lower cervical spine. MRI may be useful. Electronically Signed: Ish Quiroz MD at 21:55 EDT ,
--- NOTE | 2023-01-12 07:59 | RAD_ITS ---
STUDY: X-RAY - THORACIC SPINE REASON FOR EXAM: Female, 62 years old. BACK PAIN -- -- PT STATES LOWER BACK PAIN TECHNIQUE: 3 view(s) of the thoracic spine were obtained. COMPARISON: None. FINDINGS: Normal kyphosis of the thoracic spine. Mild dextroscoliosis. Normal thoracic vertebrae and endplates. Normal disc space heights. The soft tissue structures are unremarkable. RAD/Thoracic Spine 3 Views IMPRESSION: Mild dextroscoliosis. No compression fracture. Electronically Signed: Brenden Cabrera (Brooks), at 22:01 EDT ,
--- NOTE | 2023-01-14 15:02 | RAD_ITS ---
INDICATION: LOW BACK PAIN EXAMINATION/TECHNIQUE: X-RAY - XR Spine Lumbar 2 or 3 Views COMPARISON: None. FINDINGS: VERTEBRAE: Preserved vertebral body height. No fracture. No spondylolisthesis. Preservation of the normal lumbar lordosis. Multilevel facet hypertrophy. DISCS: Mild multilevel narrowing of disc height. INCLUDED ABDOMEN: Included bowel gas pattern is non-obstructive. Atherosclerosis of aorta. RAD/Lumbar Spine 2 or 3 Views IMPRESSION: Multilevel spondylosis/degenerative disease with no acute fracture or spondylolisthesis. Electronically Signed: Tracey Dunham, at 17:39 EDT ,
== END | disposition home or self-care (01) ==
LOC: RAD.FUTURE 07:34 → RAD 01-14 15:02
PROVIDERS: Referring Provider Nurse Practitioner Family; Visit Provider Nurse Practitioner Family
DX: M54.2 Cervicalgia (principal); M54.50 Low back pain, unspecified
CPT/HCPCS: 72050; 72072; 72100

== ENCOUNTER 2023-02-13 17:00 | Outpatient (RCR) | payer OTHER, MEDICAID, SELFPAY ==
--- NOTE | 2023-01-22 18:14 | HP.PTEVAL_ITS ---
Patient's Visit Information Visit Information Visit Information: THUAN BETANCOURT is a 62 year old F referred to Physical Therapy by LENNIE Scales with a diagnosis of cervical pain, LBP, arm pain. Date of Evaluation: 01/22/23 Physical Therapist: Elvis Judge, DPT, OCS, CSCS Visit Plan Frequency: 2x /Week Duration: 4-6 Weeks Plan: 2x/week for 4-6 weeks starting with AT for neck ROM, LB ROM, core, postural and LE and UE strength and progress to HEP or I community pool. Subjective Subjective: neck and shoulders hurt most of the time but worse on some days, bad for the last year. 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 B arms and hands hurt and neck hurts. Lifting restriction of 20# at work. LB hurts worst and has for years. Central to R, constant. Pain to 8/10 and worse with being on feet and walking. Can sit in a chair right now at work. Sees chiropractor and doctor and think neck and LB are the issues. has had shock treatments in LB/neck from chiro Dr. mathias but does not help much. Has had instances where LB goes out and cannot lift legs. Sleep: kept up with neck pain and arms and hands. Slightly better on non work days. Hobbies: no time, works a lot. has to take care of home and feed dog. Pain neck and arms: Pain Intensity (Out of 10): 4 Pain Intensity Range: 1 and 6 LBP: Pain Intensity (Out of 10): 3 Pain Intensity Range: 2 and 8 Objective Objective: Postre is forward head and protracted scap with flat lordosis in lumbar area and kyphotic t/s. Tender to palpation slightly in UT and cervical paraspinals. - c/s compression test.- slump, - SLR cervical AROM L rotation 40, R rotation 58, extension 50, sB full and no real pain with these movements. Lumbar aROM ext mod to max limited, flexion min limited, SB are full, no real pain. UE adn LE AROM WFL but hesitant to get to end range of UE elevation. reflexes 1/3 bi and tri and patella and achilles Sensation UE and LE WNL to gross light touch strength UE 4-/5 without myotomal problems LE strength is 3+ in hips, 4- in knees and 4 in ankles without myotomal problems. core strength is poor at 3+/5 abd and hip rotation and extension. Balance/Special Test Scores Oswestry Neck Score: 17 Goals Goal 1:: Pain in neck and LB intermittent and 3/10 at worst Goal Time Frame: 4-6 Weeks Goal 2:: Neck oswestry 8 or better Goal Time Frame: 4-6 Weeks Goal 3:: Work without increasing pain in neck or LB Goal Time Frame: 4-6 Weeks Goal 4:: I appropriate HEP to limit future problems(strength adn movement.) Goal Time Frame: 4-6 Weeks Rehabilitation Potential Physical Therapy Diagnosis: Pt in poor phsyical condition and has degeneraitve changes in neck and LB which are poorly managed. Rehabilitation Potential: Fair Anticipated Interventions Patient/Client Instruction: Educate patient on: Condition and Plan of Care For the Purpose of:: To decrease pain, To increase ROM, To improve nutrient delivery to tissue, To improve muscle performance and motor function, To increase tolerance to activity/condition/position and To improve ability of physical actions for home/community/work/leisure Therapeutic Exercise to Include: Strength training, Postural training, Flexibilty training, In an aquatic setting, Passive ROM and Active ROM For the Purpose of:: To decrease pain, To increase ROM, To improve nutrient delivery to tissue, To improve muscle performance and motor function, To increase tolerance to activity/condition/position and To improve ability of physical actions for home/community/work/leisure Text: Thank you for the opportunity to evaluate your patient. For Medicare and Medicare HMO plans, please review the plan of care and approve it. It will need to be FAXED BACK to us at [phone] for Medicare purposes. For Medicare only, by signing this I certify the plan of care. Please let me know if there are questions or concerns regarding this plan of care. Physician Signature: Date:
--- NOTE | 2023-04-23 13:40 | HP.PT.NRP ---
Patient Information Patient Information: THUAN BETANCOURT was seen in my office for initial evaluation on 01/22/23. The following Plan of Care was established for this patient: POC Established Initial Frequency: 2x /Week Initial Duration: 4-6 Weeks Anticipated Interventions Patient/Client Instruction: Educate patient on: Condition and Plan of Care For the Purpose of:: To decrease pain, To increase ROM, To improve nutrient delivery to tissue, To improve muscle performance and motor function, To increase tolerance to activity/condition/position and To improve ability of physical actions for home/community/work/leisure Therapeutic Exercise to Include: Strength training, Postural training, Flexibilty training, In an aquatic setting, Passive ROM and Active ROM For the Purpose of:: To decrease pain, To increase ROM, To improve nutrient delivery to tissue, To improve muscle performance and motor function, To increase tolerance to activity/condition/position and To improve ability of physical actions for home/community/work/leisure Last Seen Last Seen: This patient was last seen in our office 02/13/23. Pertinent comments regarding their Physical therapy will appear below: Pt seen 4 visits of POC. Did not attend any further visits. At this point, it has been over 2 months and I will discontinue due to nonattendance. At this point I will be discontinuing this patient from physical therapy. I would be happy to see this patient again in the future if found appropriate by the physician. Thank you! Elvis Judge, DPT, OCS, CSCS Balance/Gait/Functional tests Balance/Special Test Scores Oswestry Neck Score: 17
== END 2023-02-13 19:00 | disposition home or self-care (01) ==
LOC: PT 17:00
PROVIDERS: Referring Provider Nurse Practitioner Family; Visit Provider Nurse Practitioner Family
DX: M54.50 Low back pain, unspecified (principal); G89.29 Other chronic pain; M54.2 Cervicalgia
CPT/HCPCS: 97113; 97162

== ENCOUNTER → 2023-07-18 | Outpatient (CLI) | payer MEDICAID, SELFPAY ==
--- OUTSIDE RECORDS SUMMARY | 2023-07-18 07:38 | XMS RPT_ITS | CCD ---
Author Name Unknown Address [address] [place] [address] Organization [facility] Care Team Providers Care Player Manager Name Role Phone Unavailable Primary Care Provider SCOT Harrison Referring Unavailable Allergies Allergy Classification Reported Allergen(s) Allergy Type Date of Onset Reaction(s) Facility (2 sources) buPROPion; Translations: [BUPROPION HCL] Drug Allergy 07-05-2023 Unknown [facility] Medications Current Medications Medication Drug Class(es) Dates Sig (Normalized) Sig (Original) predniSONE 20 mg oral tablet (1 source) Start: 07-05-2023 End: 07-10-2023 take 2 tablets by mouth once daily predniSONE (DELTASONE) 20 mg tablet Indications: URI, acute , History of asthma Take 2 tablets by mouth once daily for 5 days. 10 tablet 0 07/05/2023 07/10/2023 Active Completed/Discontinued Medications Medication Drug Class(es) Dates Sig (Normalized) Sig (Original) [id number] 200 actuat albuterol 0.09 mg/actuat metered dose inhaler (15 sources) beta2-Adrenergic Agonist Start: 07-05-2023 take 2 puff(s) by inhalation every four hours as needed for wheezing albuterol HFA (PROVENTIL HFA, VENTOLIN HFA) 90 mcg/actuation inhaler Indications: URI, acute , History of asthma Inhale 2 Puffs as instructed every 4 hours as needed for wheezing/shortnes s of breath. 1 Each 0 07/05/2023 Active Problems Active Problems Problem Classification Problem Date Documented Date Episodic/Chronic Immunizations and screening for infectious disease (1 source) Contact with or exposure to other viral diseases; Translations: [Exposure to COVID-19 virus] Episodic Menopausal disorders (7 sources) Abnormal perimenopausal bleeding; Translations: [Excessive bleeding in the premenopausal period] Onset: 10-25-2011 10-25-2011 Chronic Other lower respiratory disease (1 source) Cough; Translations: [Acute cough] 07-05-2023 Episodic Other lower respiratory disease (1 source) H/O: asthma; Translations: [Personal history of other diseases of the respiratory system] 07-05-2023 Episodic Other upper respiratory disease (1 source) Nasal sinus problem; Translations: [Other specified disorders of nose and nasal sinuses] Episodic Other upper respiratory infections (2 sources) Nasal discharge; Translations: [Postnasal drip] Episodic Past or Other Problems Problem Classification Problem Date Documented Da te Episodic/Chronic Complications of surgical procedures or medical care (7 sources) Dehiscence of surgical wound; Translations: [Disruption of external operation (surgical) wound, not elsewhere classified, initial encounter] Onset: 06-28-2011 06-28-2011 Episodic Diabetes mellitus without complication (7 sources) Impaired glucose tolerance; Translations: [Impaired glucose tolerance (oral)] Onset: 10-05-2011 10-05-2011 Episodic Other connective tissue disease (7 sources) Plantar fascial fibromatosis; Translations: [Plantar fascial fibromatosis] Onset: 06-13-2011 06-13-2011 Episodic Other connective tissue disease (7 sources) Disorder of rotator cuff; Translations: [Other specified disorders of rotator cuff syndrome of shoulder and allied disorders] Onset: 01-14-2013 01-14-2013 Episodic Other connective tissue disease (7 sources) Adhesive capsulitis of shoulder; Translations: [Adhesive capsulitis of unspecified shoulder] Onset: 01-14-2013 01-14-2013 Episodic Spondylosis; intervertebral disc disorders; other back problems (10 sources) Chronic low back pain; Translations: [Lumbago with sciatica, right side] Onset: 02-05-2022 Episodic Results Test Name Value Interpretation Reference Range Facil ity Vital Signs Date Time Vital Sign Value Performing Clinician Faci lity 07-05-2023 11:04-0500 Body temperature 97.9 [degF] Scot Cheung APRN.CNP Work Phone: [facility] 07-05-2023 11:04-0500 Body weight 100.25 kg Scot Cheung APRN.CNP Work Phone: [facility] 07-05-2023 11:04-0500 Diastolic blood pressure 74 mm[Hg] Scot Jonatan FIELD REPRESENTATIVE/HEALTH EDUCATION.POCKET OPERATOR Work Phone: [facility] 07-05-2023 11:04-0500 Heart rate 86 /min Scot Jonatan FIELD REPRESENTATIVE/HEALTH EDUCATION.POCKET OPERATOR Work Phone: [facility] 07-05-2023 11:04-0500 Respiratory rate 20 /min Scot Cheung FIELD REPRESENTATIVE/HEALTH EDUCATION.POCKET OPERATOR Work Phone: [facility] 07-05-2023 11:04-0500 SaO2% (BldA) [Mass fraction] 97 % Scot Jonatan FIELD REPRESENTATIVE/HEALTH EDUCATION.POCKET OPERATOR Work Phone: [facility] 07-05-2023 11:04-0500 Systolic blood pressure 132 mm[Hg] Scot Jonatan FIELD REPRESENTATIVE/HEALTH EDUCATION.POCKET OPERATOR Work Phone: [facility] 02-05-2022 17:00-0400 Diastolic blood pressure 72 mm[Hg] Ivory Lemon PT [facility] 02-05-2022 17:00-0400 Systolic blood pressure 132 mm[Hg] Ivory Lemon PT [facility] 12-25-2021 16:10-0400 Body temperature 98.4 [degF] Tiffany Octavio FIELD REPRESENTATIVE/HEALTH EDUCATION.POCKET OPERATOR Work Phone: [facility] 12-25-2021 16:10-0400 Body weight 105.6 kg Tiffany Cunningham FIELD REPRESENTATIVE/HEALTH EDUCATION.POCKET OPERATOR Work Phone: [facility] 12-25-2021 16:10-0400 Diastolic blood pressure 72 mm[Hg] Tiffany Villegask FIELD REPRESENTATIVE/HEALTH EDUCATION.POCKET OPERATOR Work Phone: [facility] 12-25-2021 16:10-0400 Heart rate 90 /min Tiffany Octavio FIELD REPRESENTATIVE/HEALTH EDUCATION.POCKET OPERATOR Work Phone: [facility] 12-25-2021 16:10-0400 Respiratory rate 21 /min Tiffany Octavio FIELD REPRESENTATIVE/HEALTH EDUCATION.POCKET OPERATOR Work Phone: [facility] 12-25-2021 16:10-0400 SaO2% (BldA) [Mass fraction] 98 % Tiffany Cunningham FIELD REPRESENTATIVE/HEALTH EDUCATION.POCKET OPERATOR Work Phone: [facility] 12-25-2021 16:10-0400 Systolic blood pressure 130 mm[Hg] Tiffany Villegasmatilde OWENS Work Phone: [facility] Encounters Encounter Date Encounter Type Care Provider Facility Start: 07-05-2023 End: 07-05-2023 ambulatory SCOT CHEUNG Facility:[facility] Start: 07-05-2023 End: 07-05-2023 Patient encounter procedure Soct Cheung APRN.CNP Work Phone: [facility] Procedures Date Procedure Procedure Detail Performing Clinician Start: 07-05-2023 Radiologic exam ches t 2 views Scot Cheung APRN.CNP Work Phone: Start: 07-05-2023 INFLUENZA A&B MOLECU LAR (POC) Scot Cheung APRN.CNP Work Phone: Start: 01-29-2012 Lipid 1996 panel - S mariela or Plasma Scot Cheung APRN.CNP Work Phone: Plan of Treatment Date Care Activity Detail Author Start: 09-02-2031 Urine microalbumin profile DTaP,Tdap,Td Vaccine (5 - Td or Tdap) [facility] Start: 07-28-2027 Screening for malignant neoplasm of cervix [facility] Start: 05-20-2023 Depression Assessment Depression Assessment [facility] Start: 01-18-2023 Covid-19 Vaccine ( season) Covid-19 Vaccine ( season) [facility] Start: 01-18-2023 Influenza vaccination Influenza Vaccine (#1) [facility] Start: 01-18-2022 Influenza vaccination INFLUENZA (#1) [facility] Start: 12-25-2021 End: 01-08-2022 SARS-CoV-2 (COVID-19) RNA [Presence] in Respiratory specimen by VICTOR HUGO with probe detection 2019 CORONAVIRUS Microbiology Routine Sinus pressure Post-nasal drainage Exposure to COVID-19 virus Expected: 12/25/2021, Expires: 01/08/2022 [facility] Work Phone: Immunizations Immunization Date Immunization Notes Care Provider Fa cility 02-14-2022 influenza virus vacc ine, unspecified formulation Scot Cheung APRN.CNP Work Phone: [facility] Payers Date Payer Category Payer Medicaid [id number] 2021 Medicaid [id number] Social History Date Type Detail Facility Start: 12-25-2021 Tobacco smoking stat us ORIS Smokes tobacco daily [facility] History of tobacco use Cigarette Smoker [facility] Start: 12-25-2021 End: 06-04-2022 Cigarettes smoked current (pack per day) - Reported 0.8 [facility] Start: 12-25-2021 Tobacco use and exposure Smoke less tobacco non-user [facility] Start: 12-25-2021 End: 07-05-2023 Alcohol intake Current non-drinker of alcohol (finding) [facility] Start: 1960 Sex Assigned At Not on file [facility] Start: 12-15-2021 End: 01-24-2022 Exposure to SARS-CoV-2 (event) Not sure [facility] Start: 06-04-2022 End: 07-05-2023 Tobacco use panel [facility] National Score (1-10 0), lower number is lower risk 85 [facility] Start: 1960 Sex Assigned At Female [facility] Start: 07-05-2023 Gender identity Identifies as female gender (finding) [facility] Start: 07-05-2023 Sexual orientation Heterosexual (fin ding) [facility] Clinical Notes 12-25-2021 to 07-05-2023 Scot Cheung APRN.POCKET OPERATOR - 07/05/2023 11:19 AM Mark Foley, PT - 02/05/2022 5:17 PM EDTTelephone Encounter - Madelaine Jim APRN.POCKET OPERATOR - 01/18/2022 2:15 PM EDTPatient Instructions Note Date & Type Note Facility 07-05-2023 Note HNO ID: [id number] Author: MANNY CROWLEY RT(R) Service: ? Author Type: Fall Internship Type: Progress Notes Filed: 07/05/2023 11:42 Note Text: Radiology Service Progress Note PATIENT NAME: Aurora Betancourt DATE OF SERVICE: July 05, 2023 TIME: 11:33 AM PATIENT IDENTITY VERIFICATION COMPLETED USING TWO (2) IDENTIFIERS: Name and Date of confirmed by patient verbally. FALL SCREENING: Has the patient had 2 falls in the last year or 1 fall with injury or currently using an Ambulatory Assistive Device (Walker, Cane, Wheelchair, Crutches, etc.)? No PATIENT GENDER DATA: Female. status: : No status: NO. PATIENT RELEVANT IMPLANT DATA REVIEWED: Yes PATIENT PRESENTS WITH AN IMPLANTABLE OR ATTACHED APRICOT WASHER: No RADIOLOGY DEPARTMENT: General X-ray: Exam(s) Completed: Chest X-Ray PERIPHERAL IV DATA: Not applicable SIGNED BY: RT Dagoberto(R) July 05, 2023 11:33 AM [facility] 07-05-2023 Note HNO ID: [id number] Author: SCOT CHEUNG APRN.POCKET OPERATOR Service: ? Author Type: Nurse Practitioner Type: Progress Notes Filed: 07/05/2023 12:07 Note Text: Subjective HPI HPI Aurora Betancourt is a 63 year old female who presents today for CC of cough, fever, congestion. This started 2 days ago. Has tried otc medication for relief. Symptoms are worsened by nothing. Risk factors sick exposures at work. Hx of asthma. nonsmoker. .Patient presents with: Nasal Congestion: Cough, ST, low fevers x2 days PAST MEDICAL HISTORY Diagnosis Date HTN (hypertension) Hypercholesteremia Type II or unspecified type diabetes mellitus without mention of complication, not stated as uncontrolled PAST SURGICAL HISTORY Procedure Laterality Date LIGATE FALLOPIAN TUBE PAST SURGICAL HISTORY OF 2010 left eyelid lesion removed PAST SURGICAL HISTORY OF right great toe surgery PAST SURGICAL HISTORY OF 2011 plantar fasciotomy right TONSILLECTOMY HX ALLERGIES Bupropion Hcl MEDICATIONS umeclidinium-vilanterol (ANORO ELLIPTA) 62.5-25 mcg/actuation inhaler Inhale 1 Puff as instructed once daily. TRULICITY 1.5 mg/0.5 mL pen injector INJECT 1.5 MG DOSE SUBCUTANEOUSLY ONCE A WEEK losartan (COZAAR) 50 mg tablet Losartan Potassium Active 50 MG DAILY July 08, 2017 5:21pm SYMBICORT 80-4.5 mcg/actuation inhaler Inhale 2 Puffs as instructed twice daily. montelukast (SINGULAIR) 10 mg tablet Take 10 mg by mouth once daily. insulin glargine,hum.rec.anlog (LANTUS SOLOSTAR U-100 INSULIN SUBCUTANEOUS) Inject subcutaneously. metFORMIN 500 mg ORAL tablet Take 1 tablet by mouth twice daily. albuterol 90 mcg/Actuation INHALATION Aero Inhale 1-2 Puffs as instructed every 4 hours as needed (for wheezing and shortness of breath). atorvastatin (LIPITOR) 10 mg tablet Take 1 tablet by mouth once daily. spironolactone (ALDACTONE) 25 mg tablet Take 1 tablet by mouth once daily. rosuvastatin (CRESTOR) 10 mg tablet Rosuvastatin Calcium Active 10 MG AT BEDTIME July 08, 2017 5:21pm (Patient not taking: Reported on 07/05/2023) Pioglitazone-Glimepiride 30-2 mg per tablet Take 1 tablet by mouth daily with breakfast. albuterol HFA (PROAIR HFA) 90 mcg/actuation inhaler Inhale 2 Puffs as instructed every 4 hours as needed. guaiFENesin (MUCINEX) 600 mg 12 hr tablet Take 2 tablets by mouth twice daily. naproxen 500 mg tablet Take 1 tablet by mouth twice daily as needed. FOR PAIN. TAKE WITH FOOD. (Patient not taking: Reported on 12/25/2021) olmesartan (BENICAR) 40 mg tablet Take 0.5 tablets by mouth once daily. (Patient not taking: No sig reported) glipiZIDE 5 mg ORAL tablet Take 1 tablet by mouth twice daily before meals. (Patient not taking: Reported on 12/25/2021) FAMILY HISTORY Problem Relation Age of Onset other (brain tumor [Other]) Mother other (unknown [Other]) Father Diabetes Maternal Grandmother Social History Tobacco Use Smoking status: Every Day Packs/day: 0.80 Years: 28.00 Additional pack years: 0.00 Total pack years: 22.40 Types: Cigarettes Smokeless tobacco: Never Substance Use Topics Alcohol use: No Drug use: No Review of Systems Constitutional: Positive for fever. HENT: Positive for congestion and sinus pain. Negative for ear pain, nosebleeds and sore throat. Respiratory: Positive for cough. Negative for shortness of breath and wheezing. Musculoskeletal: Negative for neck pain. Skin: Negative for itching and rash. Objective Blood pressure 132/74, pulse 86, temperature 36.6 ?C (97.9 ?F), resp. rate 20, weight 100.2 kg (221 lb), SpO2 97%. Physical Exam Constitutional: General: She is not in acute distress. Appearance: She is not toxic-appearing or diaphoretic. HENT: Head: Normocephalic and atraumatic. Cardiovascular: Rate and Rhythm: Normal rate and regular rhythm. Heart sounds: Normal heart sounds, S1 normal and S2 normal. Pulmonary: Effort: Pulmonary effort is normal. Breath sounds: Wheezing (scattered bilat) present. No decreased breath sounds, rhonchi or rales. Lymphadenopathy: Cervical: No cervical adenopathy. Right cervical: No superficial cervical adenopathy. Left cervical: No superficial cervical adenopathy. Neurological: Mental Status: She is alert and oriented to person, place, and time. Gait: Gait is intact. ASSESSMENT/PLAN: 1. URI, acute - ICD9: 465.9, ICD10: J06.9 (primary diagnosis) - Discussed viral etiology and rationale for treatment. - Symptomatic treatment with prn analgesia - Supportive care with fluids and rest - Follow up in 3-5 days if symptoms persist or sooner if worsening of symptoms - INFLUENZA AANDB MOLECULAR (POC) - COVID NAAT, UPPER RESPIRATORY, ROUTINE - PREDNISONE 20 MG TABLET - ALBUTEROL SULFATE HFA 90 MCG/ACTUATION AEROSOL INHALER 2. Acute cough - ICD9: 786.2, ICD10: R05.1 Xray negative. - XR CHEST 2V FRONTAL/LAT IMPRESSION: Unremarkable exam with no acute radiographic abnormality. Dictate (more content not included)... [facility] 07-05-2023 History of Presen t illness Narrative Subjective HPI HPI Aurora Betancourt is a 63 year old female who presents today for CC of cough, fever, congestion. This started 2 days ago. Has tried otc medication for relief. Symptoms are worsened by nothing. Risk factors sick exposures at work. Hx of asthma. nonsmoker. .Patient presents with: Nasal Congestion: Cough, ST, low fevers x2 days PAST MEDICAL HISTORY Diagnosis Date HTN (hypertension) Hypercholesteremia Type II or unspecified type diabetes mellitus without mention of complication, not stated as uncontrolled PAST SURGICAL HISTORY Procedure Laterality Date LIGATE FALLOPIAN TUBE PAST SURGICAL HISTORY OF 2010 left eyelid lesion removed PAST SURGICAL HISTORY OF right great toe surgery PAST SURGICAL HISTORY OF 2012 plantar fasciotomy right TONSILLECTOMY HX ALLERGIES Bupropion Hcl MEDICATIONS umeclidinium-vilanterol (ANORO ELLIPTA) 62.5-25 mcg/actuation inhaler Inhale 1 Puff as instructed once daily. TRULICITY 1.5 mg/0.5 mL pen injector INJECT 1.5 MG DOSE SUBCUTANEOUSLY ONCE A WEEK losartan (COZAAR) 50 mg tablet Losartan Potassium Active 50 MG DAILY July 08, 2017 5:21pm SYMBICORT 80-4.5 mcg/actuation inhaler Inhale 2 Puffs as instructed twice daily. montelukast (SINGULAIR) 10 mg tablet Take 10 mg by mouth once daily. insulin glargine,hum.rec.anlog (LANTUS SOLOSTAR U-100 INSULIN SUBCUTANEOUS) Inject subcutaneously. metFORMIN 500 mg ORAL tablet Take 1 tablet by mouth twice daily. albuterol 90 mcg/Actuation INHALATION Aero Inhale 1-2 Puffs as instructed every 4 hours as needed (for wheezing and shortness of breath). atorvastatin (LIPITOR) 10 mg tablet Take 1 tablet by mouth once daily. spironolactone (ALDACTONE) 25 mg tablet Take 1 tablet by mouth once daily. rosuvastatin (CRESTOR) 10 mg tablet Rosuvastatin Calcium Active 10 MG AT BEDTIME July 08, 2017 5:21pm (Patient not taking: Reported on 07/05/2023) Pioglitazone-Glimepiride 30-2 mg per tablet Take 1 tablet by mouth daily with breakfast. albuterol HFA (PROAIR HFA) 90 mcg/actuation inhaler Inhale 2 Puffs as instructed every 4 hours as needed. guaiFENesin (MUCINEX) 600 mg 12 hr tablet Take 2 tablets by mouth twice daily. naproxen 500 mg tablet Take 1 tablet by mouth twice daily as needed. FOR PAIN. TAKE WITH FOOD. (Patient not taking: Reported on 12/25/2021) olmesartan (BENICAR) 40 mg tablet Take 0.5 tablets by mouth once daily. (Patient not taking: No sig reported) glipiZIDE 5 mg ORAL tablet Take 1 tablet by mouth twice daily before meals. (Patient not taking: Reported on 12/25/2021) FAMILY HISTORY Problem Relation Age of Onset other (brain tumor [Other]) Mother other (unknown [Other]) Father Diabetes Maternal Grandmother Social History Tobacco Use Smoking status: Every Day Packs/day: 0.80 Years: 28.00 Additional pack years: 0.00 Total pack years: 22.40 Types: Cigarettes Smokeless tobacco: Never Substance Use Topics Alcohol use: No Drug use: No Review of Systems Constitutional: Positive for fever. HENT: Positive for congestion and sinus pain. Negative for ear pain, nosebleeds and sore throat. Respiratory: Positive for cough. Negative for shortness of breath and wheezing. Musculoskeletal: Negative for neck pain. Skin: Negative for itching and rash. Objective Blood pressure 132/74, pulse 86, temperature 36.6 C (97.9 F), resp. rate 20, weight 100.2 kg (221 lb), SpO2 97%. Physical Exam Constitutional: General: She is not in acute distress. Appearance: She is not toxic-appearing or diaphoretic. HENT: Head: Normocephalic and atraumatic. Cardiovascular: Rate and Rhythm: Normal rate and regular rhythm. Heart sounds: Normal heart sounds, S1 normal and S2 normal. Pulmonary: Effort: Pulmonary effort is normal. Breath sounds: Wheezing (scattered bilat) present. No decreased breath sounds, rhonchi or rales. Lymphadenopathy: Cervical: No cervical adenopathy. Right cervical: No superficial cervical adenopathy. Left cervical: No superficial cervical adenopathy. Neurological: Mental Status: She is alert and oriented to person, place, and time. Gait: Gait is intact. ASSESSMENT/PLAN: 1. URI, acute - ICD9: 465.9, ICD10: J06.9 (primary diagnosis) - Discussed viral etiology and rationale for treatment. - Symptomatic treatment with prn analgesia - Supportive care with fluids and rest - Follow up in 3-5 days if symptoms persist or sooner if worsening of symptoms - INFLUENZA A&B MOLECULAR (POC) - COVID NAAT, UPPER RESPIRATORY, ROUTINE - PREDNISONE 20 MG TABLET - ALBUTEROL SULFATE HFA 90 MCG/ACTUATION AEROSOL INHALER 2. Acute cough - ICD9: 786.2, ICD10: R05.1 Xray negative. - XR CHEST 2V FRONTAL/LAT IMPRESSION: Unremarkable exam with no acute radiographic abnormality. Dictated by : FENG ZELAYA MD 3. History of asthma - ICD9: V12.69, ICD10: Z87.09 - PREDNISONE 20 MG TABLET - ALBUTEROL SULFATE HFA 90 MCG/ACTUATION AEROSOL INHALER Scot Cheung APRN.POCKET OPERATOR documented in this encounter [facility] 02-05-2022 History of Presen t illness Narrative Episode Visit Count: 1 Therapist That Will Accept/Oversee The Plan Of Care: Ivory Foley Start of Care Date: 02/05/22 Onset Date: ( It's been many years. ) Plan of Care Certification Date: 02/05/22 Next Certification Due Date: 04/07/22 Patient Identified by Name and Date of : Yes REHABILITATION AND SPORTS THERAPY PHYSICAL THERAPY EVALUATION PLAN OF CARE: Assessment: Aurora Betancourt presents with diagnosis of chronic R side low back pain with R sciatica and chronic back pain greater than 3 months duration that interferes with walking in the house;walking in the community;rising from a chair;sitting;cleaning;sleeping . She presents with impairments in overall function, posture, range of motion, and strength . Prognosis for therapy is Good due to: current objective clinical presentation;good support system/ coping skills;Prognosis may be limited due to chronic nature of impairments;occupational demands . She will benefit from skilled therapy services to meet the goals established for this plan of care as noted below. Goals for Episode of Care: created on 02/05/22 through 04/07/22 Pt will have good understanding and application of modifications to body mechanics during sitting, sleeping, standing and work activities to improve management of symptoms. [place] in home exercise program. Patient will decrease pain rating by 2 points to meet minimal clinical important difference for numeric pain rating scale. Patient will increase active ROM of lumbar spine to fingertips to mid to distal lower legs to allow pt to to improve performance of ADLs. Patient will demonstrate increase in core trunk strength to 5/5 during manual muscle testing in order to improve function for prior functional tasks and work tasks. Perform walking in the house;walking in the community;rising from a chair;sitting;cleaning;sleeping ; without pain. Improve postural awareness. Patient will be able to correct postural deviations independently in order to improve postural alignment of trunk during ambulation, sitting, standing, functional activities, and work activities, to decrease current pain , and prevent future recurrence. Patient Goals: I feel like there's more to it than just therapy, but hopefully I can get some relief from this. Planned Interventions, Frequency, and Duration: Current Frequency: 2x/week Duration: 8 weeks Total Number of Visits Planned: 16 Planned Treatment Interventions: Therapeutic exercise (80156);Neuromuscular re-education (87049);Manual therapy (79021);Patient/Family/Caregive r Education PLAN FOR NEXT VISIT: Assess response to HEP and review as needed. Progress core sterngthening and low back mobility exercises. May add seated stepper or stationary bike if reduces symptoms. Patient demonstrates good understanding of plan of care and treatment. The above goals and plan of care were discussed and agreed upon by patient/family. SUBJECTIVE: Aurora Betancourt is a 61 year old female seen today for Pt reports longstanding history of low back pain. She states currently, pain is certain ways that I move I can feel it. It feels like there is a small spot to the R of my spine. When it hurts a lot it bothers my hip too. When it is super bad it hurts from the hip all the way down. Sometimes I have to use my arms to pick pulling machine operator my legs to lift them into the car. The main spot never goes away, but the leg symptoms will work itself out. Sometimes lasts a week , sometimes only a few days. She reports difficulty with sit to stand and walking. This weekend she walked around at a flea market and her back got really painful. Sat and rested for a while and it eased up. Doing housework yesterday and had to keep sitting down intermittently to rest. Laying on right side is painful. Doesn't lie supine d/t pain. Worse with chairs that allow back to slouch. Patient Goals: I feel like there's more to it than just therapy, but hopefully I can get some relief from this. 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 At times causes tearfulness.) Pain Location: Low Back/Lumbar Spine - Right;Hip - Right;Thigh - Right;Calf - Right;Foot - Right Description: (intermittent R foot numbness when lies down) Frequency: Intermittent Post Treatment Pain Post Treatment Pain Level: No Change PROMIS Scales Higher is Better 02/02/2022 Phys Func - Score 41 (mild dysfunction) Phys Func - Percentile 18 % GH Physical - Score 34.9 (Poor) GH Physical -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
[2023-07-18 07:56] LABS: Absolute Lymphocyte Count 1.78 X10^3/uL (0.83-4.51); Absolute Neutrophil Count 8.9 X10^3/uL (2.0-7.7); Basophil# 0.07 X10^3/uL; Basophil% 0.6 % (0-1); Eosinophil# 0.22 X10^3/uL; Eosinophils% 1.8 % (0-5); Hematocrit 44.4 % (37-47); Hemoglobin 13.9 g/dL (12.0-15.0); Lymphocyte # 1.78 X10^3/ul (0.83-4.51); Lymphocyte % 14.7 % (19-41); Mean Corp Hgb Conc 31.3 g/dL (32-36); Mean Corpuscular Hgb 26.5 pg (27.0-32.0); Mean Corpuscular Volume 84.6 fL (81-99); Mean Platelet Vol. 9.3 fl (6.2-12.0); Monocyte# 1.16 X10^3/uL; Monocyte% 9.6 % (0-10); NRBC Flagged by Analyzer 0 % (0-5); Neutrophil # 8.86 X10^3/uL (2.7-7.7); Neutrophil % 72.9 % (47-70); Platelet Count 357 K/mm3 (150-450); RBC Distribution Width CV 16.1 % (11.6-14.6); RBC Distribution Width SD 49.7 fl (35.1-43.9); Red Blood Count 5.25 M/mm3 (4.2-5.4); White Blood Count 12.1 K/mm3 (4.4-11.0)
[2023-07-18 08:41] LABS: ALB/GLOB Ratio 1.2 RATIO (0.9-2.4); AST(SGOT) 21 U/L (15-37); Alanine Aminotransfer ALT/SGPT 33 U/L (13-56); Albumin, Serum 3.5 g/dL (3.2-5.0); Alkaline Phosphatase 67 U/L (45-117); Anion Gap 3 (5-15); BUN 17 mg/dL (7-18); BUN/Creat Ratio 28.9 RATIO (10-20); Calcium,Total 9.1 mg/dL (8.5-10.1); Chloride 107 mmol/L (98-107); Cholesterol 122 mg/dL (200); Creatinine, Serum 0.59 mg/dL (0.55-1.02); EST Glomerular Filtration Rate 110 mL/min (>60); Est Glom Filt Rate - Afr Amer 133 mL/min (>60); Glucose 98 mg/dL (74-106); High Density Lipoprotein 48 mg/dL; Potassium 3.8 mmol/L (3.5-5.1); Protein, Total 6.5 g/dL (6.4-8.2); Sodium Level 138 mmol/L (136-145); Triglycerides 102 mg/dL; Very Low Density Lipoprotein 20 mg/dL (5-40)
[2023-07-18 10:49] LABS: Microalbumin,Random Urine 18.3 mg/L (NO RANGE EST.)
== END | disposition home or self-care (01) ==
LOC: LAB 07:34
PROVIDERS: Referring Provider Nurse Practitioner Family; Visit Provider Nurse Practitioner Family
DX: E11.65 Type 2 diabetes mellitus with hyperglycemia (principal); J01.90 Acute sinusitis, unspecified; E78.5 Hyperlipidemia, unspecified
CPT/HCPCS: 36415; 80053; 80061; 82043; 85025

== ENCOUNTER → 2024-01-29 | Outpatient (CLI) | payer OTHER, SELFPAY ==
[2024-01-29 12:38] LABS: Absolute Lymphocyte Count 1.92 X10^3/uL (0.83-4.51); Absolute Neutrophil Count 3.6 X10^3/uL (2.0-7.7); Basophil# 0.03 X10^3/uL; Basophil% 0.5 % (0-1); Eosinophils% 3.1 % (0-5); Hematocrit 39.7 % (37-47); Hemoglobin 12.7 g/dL (12.0-15.0); Lymphocyte # 1.92 X10^3/ul (0.83-4.51); Lymphocyte % 30.2 % (19-41); Mean Corpuscular Volume 84.5 fL (81-99); Mean Platelet Vol. 9.2 fl (6.2-12.0); Monocyte% 9.4 % (0-10); NRBC Flagged by Analyzer 0 % (0-5); Neutrophil # 3.59 X10^3/uL (2.7-7.7); Neutrophil % 56.6 % (47-70); Platelet Count 300 K/mm3 (150-450); RBC Distribution Width CV 13.8 % (11.6-14.6); RBC Distribution Width SD 42.7 fl (35.1-43.9); White Blood Count 6.4 K/mm3 (4.4-11.0)
[2024-01-29 13:29] LABS: ALB/GLOB Ratio 1.1 RATIO (0.9-2.4); AST(SGOT) 30 U/L (15-37); Alanine Aminotransfer ALT/SGPT 46 U/L (13-56); Albumin, Serum 3.4 g/dL (3.2-5.0); Alkaline Phosphatase 77 U/L (45-117); Anion Gap 8 (5-15); BUN 13 mg/dL (7-18); BUN/Creat Ratio 22.8 RATIO (10-20); Calcium,Total 9.4 mg/dL (8.5-10.1); Chloride 105 mmol/L (98-107); Cholesterol 110 mg/dL (200); Creatinine, Serum 0.57 mg/dL (0.55-1.02); EST Glomerular Filtration Rate 113 mL/min (>60); Est Glom Filt Rate - Afr Amer 137 mL/min (>60); Globulin 3.2 g/dL (2.2-4.2); Glucose 128 mg/dL (74-106); High Density Lipoprotein 47 mg/dL; Potassium 3.8 mmol/L (3.5-5.1); Protein, Total 6.6 g/dL (6.4-8.2); Sodium Level 138 mmol/L (136-145); Triglycerides 89 mg/dL; Very Low Density Lipoprotein 18 mg/dL (5-40)
[2024-01-29 13:51] LABS: Microalbumin,Random Urine 9.6 mg/L (NO RANGE EST.)
== END | disposition home or self-care (01) ==
LOC: LAB 01-25 08:04 → VSLAB 09:01
PROVIDERS: Referring Provider Nurse Practitioner Family; Visit Provider Nurse Practitioner Family
DX: E11.65 Type 2 diabetes mellitus with hyperglycemia (principal); E78.2 Mixed hyperlipidemia; I10 Essential (primary) hypertension
CPT/HCPCS: 36415; 80053; 80061; 82043; 84443; 85025

== ENCOUNTER → 2024-02-03 | Outpatient (CLI) | payer OTHER, SELFPAY ==
--- NOTE | 2024-02-03 12:06 | BI_ITS ---
MAMMOGRAPHY - BILATERAL SCREENING REASON FOR EXAM: Female, 63 years old. Routine annual screening examination. PERTINENT HISTORY: Non-contributory. TECHNIQUE: Digital bilateral breast guero (3D mammographic acquisition) in the CC and MLO projections. 2-D mediolateral oblique (MLO) and craniocaudad (CC) views of both breasts were obtained. CAD: Full Field Digital Mammography with Computer Added Detection was performed. COMPARISON: Comparison is made with prior study dated August 10, 2022 and August 15, 2020. FINDINGS: Breast Composition: The breasts are almost entirely fatty. There are no dominant masses or suspicious calcifications. No other significant abnormalities are identified. There has been no significant change since the prior study. BI/SCRN MAMM (CAD)W/GUERO BILAT IMPRESSION: Stable bilateral screening mammogram. Yearly follow-up mammogram recommended. (A) ASSESSMENT CATEGORY: BIRADS Category 1: Negative. A letter regarding these results will be sent to the patient by the facility within 30 days. Approximately 10% of breast cancers are not detected by mammography. A normal mammogram should not delay biopsy of a clinically suspicious abnormality. [id number] Electronically Signed: Yves Lino MD at 13:13 EDT ,
== END | disposition home or self-care (01) ==
LOC: OPBI 12:05
PROVIDERS: Referring Provider Nurse Practitioner Family; Visit Provider Nurse Practitioner Family
DX: Z12.31 Encounter for screening mammogram for malignant neoplasm of breast (principal)
CPT/HCPCS: 77063; 77067

== ENCOUNTER 2025-03-19 22:10 | Emergency (ER) | payer OTHER, SELFPAY ==
[2025-03-19 22:10] VITALS: BP 155/64; PULSE 94; RESP 18; TEMP 36.8; O2SAT 99; BMI 34.8
--- NOTE | 2025-03-19 22:31 | CT_ITS ---
PROCEDURE: CT/Brain/Head without Contrast
--- NOTE | 2025-03-19 22:31 | CT_ITS ---
PROCEDURE: CT/Sinus/Facial Bone
--- NOTE | 2025-03-19 22:32 | CT_ITS ---
PROCEDURE: CT/Spine Cervical without Contras
--- NOTE | 2025-03-19 22:40 | RAD_ITS ---
PROCEDURE: RAD/Foot min 3 Views
--- NOTE | 2025-03-19 22:43 | ED.VIS.FALL ---
HPI HPI - Fall History of Present Illness Chief Complaint: Fall Narrative Narrative: Chief complaint and HPI: 64-year-old female with past medical history of DM2, HLD, HTN presents for evaluation for injury at work. Patient states she was accidentally hit in the right foot by a machine in which she then fell over onto the right side of her body. Hit her head. No LOC. Not on blood thinners. Has a hematoma to the right forehead. Complains of headache, pain in her neck/foot. Ambulating without difficulty. Denies any chest pain, shortness of breath, abdominal pain, nausea, vomiting. Review of systems: See HPI Medications: As listed on the chart Allergies: As listed on the chart PFSH: Per chart Vital signs: As listed on the chart. Reviewed. Physical exam: Gen: A&O x3, NAD Head: Normocephalic, right frontal hematoma Eyes: No sclera icterus, conjunctiva clear, PERRL, EOMI without pain ENT: TMs clear BL, moist mucous membranes, no swelling/lacerations/blood in the mouth or the nares, No nasal septal hematoma, mild right sided facial tenderness Neck: Trachea midline, full range of motion, no midline spinal tenderness, no bony step-offs, mild tenderness to palpation of the right paraspinal musculature of the cervical spine as well as the superior trapezius muscle CV: RRR, no murmurs, no chest wall TTP Resp: Lungs CTA BL, no w/r/c GI: Abd soft, non-distended, non-tender, no r/r/g Musc: Full ROM, no deformity, no spinal TTP, no landy step-offs, PT/DP pulses +2 bilaterally, compartments soft, good capillary refill, patient has mild tenderness to palpation of the lateral foot Skin: Warm, dry, intact Neuro: Alert, oriented, grossly intact, sensation intact, GCS 15 Psych: Cooperative, appropriate mood and affect [facility] Medical History SANDI on CPAP Wears glasses Wears dentures Post-menopausal Anxiety History of steroid therapy Insulin dependent diabetes mellitus Arthritis Dietary restriction Gastric reflux Former smoker CPAP (continuous positive airway pressure) dependence Shortness of breath on exertion Leg cramps History of pain when walking History of edema History of echocardiogram History of irregular heartbeat Elevated IgE level Allergic rhinitis due to allergen Chronic obstructive asthma (with obstructive pulmonary disease) Back pain Difficulty balancing Glaucoma Asthma Fatigue Shoulder pain SOB (shortness of breath) Arthritis HTN (hypertension) Home Medications ?Medication ?Instructions ?Recorded ?Last Taken ?Type metformin 1,000 mg tablet 1,000 mg PO BIDCM DIABETES 07/08/17 07/08/17 History 1000 MG rosuvastatin 10 mg tablet 10 mg PO QHS CHOLESTEROL 07/08/17 07/08/17 History 10 MG loratadine 10 mg capsule 10 mg PO DAILY 01/14/20 Unknown History magnesium oxide 400 mg PO DAILY 01/14/20 Unknown History multivitamin with minerals 1 ea PO DAILY 01/14/20 Unknown History cholecalciferol (vitamin D3) 50 50 mcg PO DAILY 09/27/22 Unknown History mcg (2,000 unit) capsule (Vitamin D3) insulin glargine 100 unit/mL (3 60 unit subcut QPM 09/27/22 Unknown History mL) subcutaneous pen (Lantus Solostar U-100 Insulin) losartan 50 mg tablet 50 mg PO DAILY 09/27/22 10/01/22 05:50 History montelukast 10 mg tablet 10 mg PO QHS 09/27/22 Unknown History (Singulair) ipratropium bromide 21 mcg (0.03 1 spray intranasal BID rhinitis 02/03/23 Unknown Rx %) nasal spray #30 mL umeclidinium 62.5 mcg-vilanterol 1 inh inhalation DAILY #60 ea 02/03/23 Unknown Rx 25 mcg/actuation powdr for inhalation (Anoro Ellipta) Jardiance 25 mg tablet 25 mg PO DAILY #90 tabs 08/05/23 Unknown Rx (empagliflozin) meloxicam 15 mg tablet 15 mg PO QDAY 02/03/24 Unknown History spironolactone 50 mg tablet 50 mg PO QDAY 02/03/24 Unknown History blood-glucose sensor (FreeStyle #2 ea 05/11/24 Unknown Rx Rosalind 3 Sensor device) cyclobenzaprine 5 mg tablet 5 mg PO BID PRN muscle pain 05/11/24 Unknown History dexamethasone 1 mg tablet 1 mg PO ONCE #1 TAB 05/11/24 Unknown Rx dulaglutide 3 mg/0.5 mL 3 mg (0.5 mL) subcut QWEEK #2 mL 05/11/24 Unknown Rx subcutaneous pen injector (Trulicity) metoprolol succinate 25 mg 25 mg PO QDAY 05/11/24 Unknown History tablet,extended release 24 hr Allergy/AdvReac Type Severity Reaction Status Date / Time mold Allergy Intermediate Other Verified 03/19/25 22:12 Seasonal Allergies: Uncoded Allergy ASTHMA Verified 03/19/25 22:12 (environmental) LIKE SYMPTOMS Family History Other Arthritis CVA (cerebral vascular accident) Diabetes Emphysema of lung FH: cataracts Glaucoma Gout Heart disease Kidney disease Lung disease Porphyria Surgical History History of cystoscopy History of tubal ligation H/O removal of cyst History of tonsillectomy Social History Smoking Status: Former smoker how long ago did patient quit smokin years ago alcohol intake: current substance use type: does not use EXAM Physical Exam Const Vital Signs: 03/19/25 22:10 03/19/25 22:35 Temperature 98.3 F Temperature Source Oral Pulse Rate 94 Respiratory Rate 18 Respiratory Effort Normal Blood Pressure 155/64 H Blood Pressure Mean 94 Pulse Ox 99 Oxygen Delivery Method Room Air MDM MDM MDM Narrative Medical decision making narrative: 64-year-old female with past medical history of DM2, HLD, HTN presents for evaluation for injury at work. Patient states she was accidentally hit in the right foot by a machine in which she then fell over onto the right side of her body. Hit her head. No LOC. Not on blood thinners. Has a hematoma to the right forehead. Complains of headache, pain in her neck/foot. See physical exam findings. Differential diagnosis includes but is not limited to contusion, sprain, fracture. CT head, neck, face ordered along with x-ray of the foot. X-ray of the foot was personally viewed interpreted by me, ED physician. No acute fracture or dislocation. Per radiology chronic appearing fracture deformity at the medial base of the fifth proximal phalanx. CT of the brain shows no acute intracranial abnormality. CT of the cervical spine shows straightening cervical curve denoting myospasm. No vertebral fractures. Patient has cervical spondylodegenerative changes with diffuse disc bulges inducing spinal canal and neural exit pathway compromise. Patient currently not having any midline spinal tenderness, weakness, numbness or tingling. CT of the face shows no acute traumatic injury. On reevaluation, patient's pain is controlled. She is updated of all her results including the chronic results of her cervical spine. She was told that if she develops problems in the future she needs to follow-up with a spine surgeon. Given education on RICE therapy. Tylenol and Motrin as needed for pain. Follow-up with Worker's Comp. She confirmed understanding of the plan. Patient stable to discharge home. Impression: 1. Forehead hematoma 2. Closed head injury 3. Left neck contusion 4. Left foot contusion Radiography Diagnostic Testing: Clinical Impression(s) from Imaging Studies Brain CT 03/19/25 22:31 IMPRESSION: No intracerebral or extra axial hemorrhage. No acute cerebrovascular insult. If clinical symptoms persist, further evaluation with MRI may be considered as clinically warranted. Bilateral cerebral mild microvascular ischemic changes with mild brain involutional changes. Reading [facility] Facial/Sinus 03/19/25 22:31 IMPRESSION: No acute maxillofacial fracture or orbital injury. Reading Location: [id number] Cervical Spine CT 03/19/25 22:32 IMPRESSION: Straightened cervical curve denoting myospasm. No vertebral fractures, structural collapse or acute dislocation. Cervical spondylodegenerative changes with multilevel uncovertebral and facet arthropathy along with diffuse disc bulges inducing spinal canal and neural exit pathway compromise. Reading Location: [id number] Foot X-Ray 03/19/25 22:40 IMPRESSION: No acute fracture or dislocation. Reading Location: [facility] Discharge Plan Triage Chief Complaint: Fall ED Provider: Marvin Preston Dx/Rx/DC Orders Prescriptions: No Action spironolactone 50 mg tablet 50 mg PO QDAY meloxicam 15 mg tablet 15 mg PO QDAY metoprolol succinate 25 mg tablet extended release 24 hr 25 mg PO QDAY cyclobenzaprine 5 mg tablet 5 mg PO BID PRN (Reason: muscle pain) Trulicity 3 mg/0.5 mL pen injector 3 mg subcut QWEEK Qty: 2 5RF dexamethasone 1 mg tablet 1 mg PO ONCE Qty: 1 0RF (DME) FreeStyle Rosalind 3 Sensor Device See Rx Instructions .Route Qty: 2 5RF Rx Instructions: 1 sensor q 14 days metformin 1,000 MG tablet 1,000 mg PO BIDCM rosuvastatin 10 MG tablet 10 mg PO QHS multivitamin with minerals 1 EACH tablet 1 ea PO DAILY loratadine 10 MG capsule 10 mg PO DAILY magnesium oxide 400 MG tablet 400 mg PO DAILY losartan 50 mg Tablet 50 mg PO DAILY montelukast [Singulair] 10 mg Tablet 10 mg PO QHS insulin glargine [Lantus Solostar U-100 Insulin] 100 unit/mL (3 mL) Insulin Pen 60 unit SUBCUT QPM cholecalciferol (vitamin D3) [Vitamin D3] 50 mcg (2,000 unit) Capsule 50 mcg PO DAILY ipratropium bromide 21 mcg (0.03 %) spray,non-aerosol 1 spray intranasal BID Qty: 30 3RF Rx Instructions: administer into each nostril Anoro Ellipta 62.5-25 mcg/actuation blister with device 1 inh inhalation DAILY Qty: 60 3RF Jardiance 25 mg tablet 25 mg PO DAILY Qty: 90 1RF Primary Care Provider: Basilia Kwan Referrals: Basilia Kwan, GEOSCIENCES PROFESSOR-C [Primary Care Provider, Family Practice] Print Language: Persian
[2025-03-19 23:53] VITALS: BP 149/67; PULSE 86; RESP 16; TEMP 36.2; O2SAT 97
== END 2025-03-19 23:53 | disposition home or self-care (01) ==
PROVIDERS: Emergency Provider Surgery; PCP Nurse Practitioner Family; Visit Provider Surgery
DX: S00.83XA Contusion of other part of head, initial encounter (principal); Z79.4 Long term (current) use of insulin; E11.9 Type 2 diabetes mellitus without complications; I10 Essential (primary) hypertension; Z87.891 Personal history of nicotine dependence; E78.5 Hyperlipidemia, unspecified; S10.93XA Contusion of unspecified part of neck, initial encounter; W31.9XXA Contact with unspecified machinery, initial encounter; Y99.0 Civilian activity done for income or pay; Y92.89 Other specified places as the place of occurrence of the external cause; G47.33 Obstructive sleep apnea (adult) (pediatric); Z99.89 Dependence on other enabling machines and devices; Z79.84 Long term (current) use of oral hypoglycemic drugs; Z79.899 Other long term (current) drug therapy; Z79.85 Long-term (current) use of injectable non-insulin antidiabetic drugs; Z98.51 Tubal ligation status; S90.31XA Contusion of right foot, initial encounter
CPT/HCPCS: 70450; 70486; 72125; 73630; 99282

== ENCOUNTER → 2025-03-20 | Outpatient (CLI) | payer MEDICARE, SELFPAY ==
--- OUTSIDE RECORDS SUMMARY | 2025-03-20 09:22 | XMS RPT_ITS | CCD ---
Author Organization [facility] Care Team Providers Care Setter Out Name Role Phone Unavailable Primary Care Provider [facility] Primary Care Pro vider Dr. Zana Huerta Attending Provider [phone] Elvis Mckeon Other Provider Dr. Stan Kinney Attending Provider Dr. Elvis Mckeon Referring Provider [phone] [address] [place] [address] Go Barrera Attending Provider [facility] Primary Care Pro vider Dr. Zana Huerta Attending Provider [phone] [facility] Other Provider Dr. Stan Kinney Attending Provider Dr. Elvis Mckeon Referring Provider [phone] [address] [place] [address], [facility] ([facility]) Referring Provid er Dr. Go Barrera Attending Provider Dr. Go Barrera Referring Provider Dr. Go Barrera Other Provider [facility] Primary Care Pro vider Dr. Stan Kinney Attending Provider Dr. Yessenia Ndiaye Attending Provider Dr. Yessenia Ndiaye Other Provider [facility] Primary Care Pro vider [facility], [place] Referring Provid er Dr. Go Barrera Attending Provider [facility], [facility] Primary Care Pro vider [facility] [place] [facility] Referring Provid er Dr. Yessenia Ndiaye Attending Provider Dr. Go Barrera Attending Provider [facility] [place] [facility] [place] Referring Provid er LENNIE De León Attending Provider [phone] Aquiles HEARING SCREEN COORDINATOR, HEARING SCREEN COORDINATOR-C Basilia Primary Care Provider Unavailable Primary Care Provider Unavailabl e [facility] Referring Unavailable Aquiles HEARING SCREEN COORDINATOR, HEARING SCREEN COORDINATOR-C Basilia Primary Care Provider Aquiles HEARING SCREEN COORDINATOR, HEARING SCREEN COORDINATOR-C Basilia Referring Provider LENNIE De León Attending Provider [phone] Unavailable Primary Care Provider Unavailbrian lara Aquiles, Basilia Primary Care Unavailable Aquiles, Basilia Referring Unavailable Alisha De León Attending Unavailable Aquiles, Basilia Primary Care Unavailable Alisha De León Attending Unavailable Alisha De León Attending Unavailable [facility] Primary Care Unavailable [facility] Referring Unavailable [facility], [facility] Primary Care Unavailable [facility], [facility] Referring Unavailable Alisha De León Attending [facility] Unavailable Aquiles Basilia Attending Unavailable Aquiles, Basilia Referring Unavailable Madie Sneed Attending Unavailable Aquiles, Basilia Primary Care Unavailable Aquiles, Basilia Primary Care Unavailable Aquiles, Basilia Attending Unavailable Aquiles, Basilia Referring Unavailable Allergies Allergy Classification Reported Allergen(s) Allergy Type Date of Onset Reaction(s) Facility (10 sources) Mold Extract Drug Allergy [address] [facility] (7 sources) Seasonal Allergies: Uncoded; Translations: [Seasonal Allergies: Uncoded] Allergy to substance [address] [facility] (3 sources) buPROPion; Translations: [BUPROPION HCL] Drug Allergy 4 Unknown [facility] (1 source) Mold Extract Drug Allergy 4 [facility] Repository Medications Current Medications Medication Drug Class(es) Dates Sig (Normalized) Sig (Original) acetaminophen 325 mg / oxyCODONE hydrochloride 5 mg oral tablet (11 sources) Opioid Agonist Start: 01-14-2020 Oxycodone-Acetami nophen Active 1 EACH PO EVERY 6 HOURS January 14, 2020 12:00am [id number] 200 actuat albuterol 0.09 mg/actuat metered dose inhaler (20 sources) beta2-Adrenergic Agonist Start: 07-05-2023 take 2 puff(s) by inhalation every four hours as needed for wheezing albuterol HFA (PROVENTIL HFA, VENTOLIN HFA) 90 mcg/actuation inhaler Indications: URI, acute , History of asthma Inhale 2 Puffs as instructed every 4 hours as needed for wheezing/shortnes s of breath. 1 Each 07/05/2023 Active Start: 09-27-2022 End: 02-13-2023 Albuterol Sulfate Discontinu ed 1 INH INHALATION EVERY 6 HOURS September 26, 2022 11:00pm February 13, 2023 2:53pm Start: 12-25-2021 take 2 puff(s) by in halation every four hours as needed albuterol HFA (PROAIR HFA) 90 mcg/actuation inhaler Inhale 2 Puffs as instructed every 4 hours as needed. 18 g 12/25/2021 Active Start: 01-14-2020 take 1 puff(s) by in halation every four hours as needed Albuterol Sulfate Active 1 - 2 PUFF INHALATION EVERY 4 HOURS NEEDED January 14, 2020 12:00am Start: 06-01-2011 take 1-2 puff(s) by inhalation every four hours as needed for wheezing albuterol 90 mcg/Actuation INHALATION Aero Inhale 1-2 Puffs as instructed every 4 hours as needed (for wheezing and shortness of breath). 0 06/01/2011 Active Comment on above: Inhale 1-2 Puffs as instructed every 4 hours as needed (for wheezing and shortness of breath). Inhale 2 Puffs as in structed every 4 hours as needed. Inhale 2 Puffs as in structed every 4 hours as needed for wheezing/shortness of breath. atorvastatin 10 mg oral tablet (8 sources) HMG-CoA Reductase Inhibitor Start: 04-27-20 11 take 1 tablet by mouth once daily atorvastatin (LIPITOR) 10 mg tablet Take 1 tablet by mouth once daily. 0 04/27/2011 Active Comment on above: Take 1 tablet by evans th once daily. biotin 1 mg chewable tablet (11 sources) Start: 01-14-20 take 1000 ug by mouth once daily Biotin Active 1000 MCG PO DAILY January 14, 2020 12:00am 60 actuat budesonide 0.08 mg/actuat / formoterol fumarate 0.0045 mg/actuat metered dose inhaler (20 sources) Corticosteroid, beta2-Adrenergic Agonist Start: 11-28-19 take 2 puff(s) by inhalation twice daily SYMBICORT 80-4.5 mcg/actuation inhaler Inhale 2 Puffs as instructed twice daily. 11/27/2021 Active Start: 01-14-2020 End: 07-02-2022 Budesonide-Formoterol Discon tinued 1 PUFF IH NEEDED January 13, 2020 11:00pm July 02, 2022 11:09am Comment on above: Inhale 2 Puffs as in structed twice daily. busPIRone hydrochloride 5 mg oral tablet (11 sources) Start: 07-08-19 take 7.5 mg by mouth twice daily Buspirone Active 7.5 MG PO TWICE A DAY July 08, 2017 1:00am cholecalciferol 0.05 mg oral capsule (6 sources) Vitamin D Start: 09-28-19 23 take 1 capsule by mouth once daily Cholecalciferol (Vitamin D3) (Vitamin D3) 50 mcg (2,000 unit) Capsule Active 50 MCG PO DAILY September 26, 2022 11:00pm Cranberry Extract (11 sources) Non-Standardized Food Allergenic Extract, Non-Standardized Plant Allergenic Extract Start: 01-14-20 take 18091 mg by mouth once daily Cranberry Extract Active 23643 MG PO DAILY January 14, 2020 12:00am Start: 01-14-2020 take 95235 mg by evans th once daily Cranberry Extract Active 62708 MG PO DAILY January 13, 2020 11:00pm Dulaglutide (20 sources) GLP-1 Receptor Agonist Start: 04-29-2023 Dulaglu tide (Trulicity) 3 mg/0.5 mL pen injector Active 3 MG SC EVERY WEEK 2 April 29, 2023 3:37pm Start: 02-14-2023 End: 04-29-2023 Dulaglutide (Trulicity) 3 mg /0.5 mL pen injector Discontinued 3 MG SC EVERY WEEK 2 February 13, 2023 11:00pm April 29, 2023 3:37pm Start: 02-14-2023 Dulaglutide (T rulicity) 3 mg/0.5 mL pen injector Active 3 MG SC EVERY WEEK 2 February 13, 2023 11:00pm Start: 12-07-2021 End: 02-14-2023 inject 1.5 mg by subcutaneous injection every week TRULICITY 1.5 mg/0.5 mL pen injector INJECT 1.5 MG DOSE SUBCUTANEOUSLY ONCE A WEEK 12/07/2021 Active Comment on above: INJECT 1.5 MG DOSE S UBCUTANEOUSLY ONCE A WEEK empagliflozin 25 mg oral tablet (2 sources) Sodium-Glucose Cotransporter 2 Inhibitor Start: 2022 take 1 tablet by mouth once daily Empagliflozin (Jardiance) 25 mg tablet Active 25 MG PO DAILY February 13, 2023 11:00pm ergocalciferol 1.25 mg oral capsule (11 sources) Provitamin D2 Compound Start: 2017 take 92369 [IU] by mouth every week Ergocalciferol (Vitamin D2) Active 23594 UNIT PO Q7D July 08, 2017 1:00am glimepiride 2 mg / pioglitazone 30 mg oral tablet (8 sources) Peroxisome Proliferator Receptor alpha Agonist, Sulfonylurea, Peroxisome Proliferator Receptor gamma Agonist, Thiazolidinedione take 1 tablet by mouth once daily at breakfast Pioglitazone-Glimepi ride 30-2 mg per tablet Take 1 tablet by mouth daily with breakfast. Active Comment on above: Take 1 tablet by evans th daily with breakfast. glipiZIDE 5 mg oral tablet (8 sources) Sulfonylurea Start: 2010 take 1 tablet by mouth twice daily before mealtime glipiZIDE 5 mg ORAL tablet Take 1 tablet by mouth twice daily before meals. 0 04/27/2011 Active Comment on above: Take 1 tablet by evans th twice daily before meals. 12 hr guaiFENesin 600 mg extended release oral tablet (8 sources) Start: 2021 take 2 tablets by mouth twice daily guaiFENesin (MUCINEX) 600 mg 12 hr tablet Take 2 tablets by mouth twice daily. 24 tablet 12/25/2021 Active Comment on above: Take 2 tablets by mo ut twice daily. 3 ml insulin glargine 100 unt/ml pen injector (17 sources) Insulin Analog Start: 2022 Insulin Glargine (Lantus Solostar U-100 Insulin) 100 unit/mL (3 mL) Insulin Pen Active 60 UNIT SC EVERY EVENING September 26, 2022 11:00pm Start: 07-08-2017 inject 50 [IU] by hull bcutaneous injection at bedtime Insulin Glargine Active 50 UNIT SQ AT BEDTIME July 08, 2017 1:00am insulin glargine,hum.rec.anl og (LANTUS SOLOSTAR U-100 INSULIN SUBCUTANEOUS) (8 sources) insulin glargine ,hum.rec.anlog (LANTUS SOLOSTAR U-100 INSULIN SUBCUTANEOUS) Inject subcutaneously. Active insulin glargine ,hum.rec.anlog (LANTUS SOLOSTAR U-100 INSULIN SUBCUTANEOUS) Inject subcutaneously. 0 Active Comment on above: Inject subcutaneousl y. ipratropium bromide 0.021 mg/actuat metered dose nasal spray (20 sources) Anticholinergic Start: take 1 spray(s) nasal route twice daily Ipratropium [place] Active 1 SPRAY INTRANASAL TWICE A DAY February 03, 2023 7:10pm administer into each nostril Start: 08-02-2022 End: 02-03-2023 take 1 spray(s) nasal route twice daily Ipratropium [place] Discontinued 1 SPRAY INTRANASAL TWICE A DAY August 01, 2022 11:00pm February 03, 2023 7:10pm administer into each nostril Start: 08-02-2022 take 1 spray(s) nasa l route twice daily Ipratropium [place] Active 1 SPRAY INTRANASAL TWICE A DAY August 02, 2022 12:00am administer into each nostril Start: 06-16-2018 End: 06-21-2018 take 1 mL by inhalation every six hours Ipratropium [place] Discontinued 2.5 ML INHALATION EVERY 6 HOURS 62.5 5 June 16, 2018 12:00am June 21, 2018 12:09am loratadine 10 mg oral capsule (17 sources) Start: 01-14-2020 take 10 mg by mouth once daily Loratadine Active 10 MG PO DAILY January 13, 2020 11:00pm losartan potassium 50 mg oral tablet (20 sources) Angiotensin 2 Receptor Carlos Start: 09-27-2022 take 50 mg by mouth once daily Losartan Active 50 MG PO DAILY September 26, 2022 11:00pm Start: 07-08-2017 losartan (COZA AR) 50 mg tablet Losartan Potassium Active 50 MG DAILY July 08, 2017 5:21pm 07/08/2017 Active Start: 07-08-2017 End: 08-16-2022 take 50 mg by mouth once daily Losartan Discontinued 5 0 MG PO DAILY July 08, 2017 12:00am August 16, 2022 1:44pm Comment on above: Losartan Potassium A ctive 50 MG DAILY July 08, 2017 5:21pm magnesium oxide 400 mg oral tablet (17 sources) Start: 0 take 400 mg by mouth once daily Magnesium Oxide Active 400 MG PO DAILY January 13, 2020 11:00pm metFORMIN hydrochloride 1000 mg oral tablet (20 sources) Biguanide Start: 8 take 1000 mg by mouth twice daily at mealtime Metformin Active 1000 MG PO TWICE DAILY WITH MEALS July 08, 2017 12:00am Start: 06-01-2011 take 1 tablet by evans th twice daily metFORMIN 500 mg ORAL tablet Take 1 tablet by mouth twice daily. 0 06/01/2011 Active Comment on above: Take 1 tablet by evans th twice daily. montelukast 10 mg oral tablet (14 sources) Leukotriene Receptor Antagonist Start: 2 take 1 tablet by mouth once daily montelukast (SINGULAIR) 10 mg tablet Take 10 mg by mouth once daily. 11/27/2021 Active Comment on above: Take 10 mg by mouth once daily. Multivitamin With Minerals (17 sources) Start: 0 Multivitamin With Minerals Active 1 EACH PO DAILY January 14, 2020 12:00am Start: 01-14-2020 Multivitamin W ith Minerals Active 1 EACH PO DAILY January 13, 2020 11:00pm naproxen 500 mg oral tablet (8 sources) Nonsteroidal Anti-inflammatory Drug Start: 12-17-2012 take 1 tablet by mouth every twelve hours as needed naproxen 500 mg tablet Take 1 tablet by mouth twice daily as needed. FOR PAIN. TAKE WITH FOOD. 0 12/17/2012 Active Comment on above: Take 1 tablet by evans twice daily as needed. FOR PAIN. TAKE WITH FOOD. olmesartan medoxomil 40 mg oral tablet (8 sources) Angiotensin 2 Receptor Carlos Start: 06-01-2011 take 0.5 tablet by mouth once daily olmesartan (BENICAR) 40 mg tablet Take 0.5 tablets by mouth once daily. 0 06/01/2011 Active Comment on above: Take 0.5 tablets by mouth once daily. predniSONE 20 mg oral tablet (1 source) Start: 07-05-2023 End: 07-10-2023 take 2 tablets by mouth once daily predniSONE (DELTASONE) 20 mg tablet Indications: URI, acute , History of asthma Take 2 tablets by mouth once daily for 5 days. 10 tablet 0 07/05/2023 07/10/2023 Active Comment on above: Take 2 tablets by mo [facility] once daily for 5 days. rosuvastatin calcium 10 mg oral tablet (20 sources) HMG-CoA Reductase Inhibitor Start: 07-08-2017 rosuvastatin (CRESTOR) 10 mg tablet Rosuvastatin Calcium Active 10 MG AT BEDTIME July 08, 2017 5:21pm 07/08/2017 Active Start: 07-08-2017 take 10 mg by mouth at bedtime Rosuvastatin Active 10 MG PO AT BEDTIME July 08, 2017 12:00am Comment on above: Rosuvastatin Calcium Active 10 MG AT BEDTIME July 08, 2017 5:21pm sertraline 25 mg oral tablet (1 source) Serotonin Reuptake Inhibitor Start: 04-25-20 23 take 25 mg by mouth once daily Sertraline Active 25 MG PO DAILY April 25, 2023 12:00am spironolactone 25 mg oral tablet (20 sources) Aldosterone Antagonist Start: 02-14-20 23 take 50 mg by mouth once daily Spironolactone Active 50 MG PO DAILY February 13, 2023 2:56pm Start: 04-27-2011 End: 02-13-2023 take 1 tablet by mouth once daily spironolactone (ALDACTONE) 25 mg tablet Take 1 tablet by mouth once daily. 0 04/27/2011 Active Comment on above: Take 1 tablet by evans once daily. 7 actuat umeclidinium 0.0625 mg/actuat / vilanterol 0.025 mg/actuat dry powder inhaler (19 sources) Anticholinergic, beta2-Adrenergic Agonist Start: 02-03-2023 Umeclidinium-Vilanterol (Anoro Ellipta) 62.5-25 mcg/actuation blister with device Active 1 INH INHALATION DAILY 60 February 03, 2023 7:10pm Start: 07-02-2022 End: 02-03-2023 Umeclidinium-Vilanterol (Ano ro Ellipta) 62.5-25 mcg/actuation blister with device Discontinued 1 INH INHALATION DAILY 60 July 02, 2022 12:00am February 03, 2023 7:10pm Start: 07-02-2022 Umeclidinium-V ilanterol (Anoro Ellipta) 62.5-25 mcg/actuation blister with device Active 1 INH INHALATION DAILY 60 July 02, 2022 1:00am Start: 07-02-2022 Umeclidinium-V ilanterol (Anoro Ellipta) 62.5-25 mcg/actuation blister with device Active 1 INH INHALATION DAILY 60 July 02, 2022 12:00am take 1 puff(s) by inhalation once daily umeclidinium-vilanterol (ANORO ELLIPTA) 62.5-25 mcg/actuation inhaler Inhale 1 Puff as instructed once daily. Active Comment on above: Inhale 1 Puff as ins tructed once daily. Completed/Discontinued Medications Medication Drug Class(es) Dates Sig (Normalized) Sig (Original) acetaminophen 325 mg / HYDROcodone bitartrate 5 mg oral tablet (20 sources) Opioid Agonist Start: 01-15-2020 End: 01-20-2020 Hydrocodone-Acetami nophen Discontinued 1 EACH PO EVERY 4 HOURS NEEDED 14 January 15, 2020 January 19, 2020 11:02pm Start: 07-08-2017 End: 06-16-2018 take 1 tablet by mouth every six hours as needed Hydrocodone-Acetaminophen Discontinued 1 TABLET PO EVERY 6 HOURS NEEDED 20 July 08, 2017 12:00am June 16, 2018 12:59pm cephalexin 500 mg oral capsule (17 sources) Cephalosporin Antibacterial Start: 01-14-2020 End: 08-02-2022 take 500 mg by mouth four times daily Cephalexin Discontinued 500 MG PO 4 TIMES DAILY January 13, 2020 11:00pm August 02, 2022 1:09pm ciprofloxacin 500 mg oral tablet (20 sources) Quinolone Antimicrobial Start: 01-15-2020 End: 08-02-2022 take 500 mg by mouth twice daily Ciprofloxacin Hcl Discontinued 500 MG PO TWICE A DAY 6 January 14, 2020 11:00pm August 02, 2022 1:10pm Start: 07-08-2017 End: 06-16-2018 take 500 mg by mouth twice daily Ciprofloxacin Hcl Discontinued 500 MG PO TWICE A DAY 10 July 08, 2017 12:00am June 16, 2018 12:59pm furosemide 20 mg oral tablet (17 sources) Loop Diuretic Start: 02-13-2023 End: 04-25-2023 take 20 mg by mouth once daily Furosemide Discontinued 20 MG PO DAILY February 12, 2023 11:00pm April 25, 2023 9:18am Start: 07-02-2022 End: 08-16-2022 take 20 mg by mouth once daily Furosemide Discontinued 20 MG PO DAILY July 02, 2022 12:00am August 16, 2022 1:44pm omeprazole 40 mg delayed release oral capsule (18 sources) Proton Pump Inhibitor Start: 08-16-2022 End: 02-13-2023 take 1 capsule by mouth once daily Omeprazole Discontinued 0 .ROUTE .COMPLEX January 15, 2023 1:37pm February 13, 2023 2:56pm TAKE 1 CAPSULE BY MOUTH ONCE DAILY. SWALLOW WHOLE; DO NOT CRUSH, CHEW, DISSOLVE, CUT OR BREAK. pioglitazone 30 mg oral tablet (15 sources) Peroxisome Proliferator Receptor alpha Agonist, Peroxisome Proliferator Receptor gamma Agonist, Thiazolidinedione Start: 07-02-2022 End: 02-14-2023 take 30 mg by mouth once daily Pioglitazone Discontinued 30 MG PO DAILY July 02, 2022 12:00am February 14, 2023 12:38pm sucralfate 1000 mg oral tablet (6 sources) Aluminum Complex Start: 10-01-2022 End: 02-13-2023 take 1 g by mouth four times daily 1 hour(s) before bedtime Sucralfate Discontinued 1 GM PO 4 TIMES DAILY September 30, 2022 11:00pm February 13, 2023 2:57pm Take 1 hour before meals and at bedtime triamcinolone acetonide 0.055 mg/actuat metered dose nasal spray (6 sources) Corticosteroid Start: 09-27-2022 End: 02-13-2023 take 1 spray(s) nasal route at bedtime Triamcinolone Acetonide (Nasacort Allergy) 55 mcg Aerosol,[place] Discontinued 1 SPRAY INTRANASAL AT BEDTIME September 26, 2022 11:00pm February 13, 2023 2:57pm administer into each nostril vitamin b12 5 mg disintegrating oral tablet (17 sources) Vitamin B12 Start: 01-14-2020 End: 02-13-2023 take 5000 ug by mouth once daily Cyanocobalamin (Vitamin B-12) Discontinued 5000 MCG PO DAILY January 13, 2020 11:00pm February 13, 2023 2:53pm Problems Active Problems Problem Classification Problem Date Documented Da te Episodic/Chronic Anal and rectal conditions (10 sources) Perirectal abscess; Translations: [Rectal abscess] 08-16-2022 Episodic Asthma (19 sources) Asthma; Translations: [Unspecified asthma, uncomplicated] 08-02-2019 Chronic Chronic obstructive pulmonary disease and bronchiectasis (20 sources) Asthma-chronic obstructive pulmonary disease overlap syndrome; Translations: [Chronic obstructive pulmonary disease, unspecified] 07-02-2022 Chronic Chronic obstructive pulmonary disease and bronchiectasis (17 sources) Bronchitis; Translations: [Bronchitis, not specified as acute or chronic] 08-02-2019 Episodic Diabetes mellitus with complications (2 sources) Type 2 diabetes mellitus with hyperglycemia; Translations: [Type 2 diabetes mellitus with hyperglycemia] Onset: 05-11-2024 Chronic Diabetes mellitus without complication (20 sources) Diabetes mellitus; Translations: [Type 2 diabetes mellitus without complications] Onset: 05-11-2024 08-02-2019 Chronic Disorders of lipid metabolism (1 source) Mixed hyperlipidemia; Translations: [Mixed hyperlipidemia] Onset: 02-01-2025 Chronic Essential hypertension (19 sources) Hypertensive disorder; Translations: [Essential (primary) hypertension] 08-02-2019 Chronic Immunizations and screening for infectious disease (15 sources) Contact with or exposure to other viral diseases; Translations: [Exposure to COVID-19 virus] Episodic Menopausal disorders (8 sources) Abnormal perimenopausal bleeding; Translations: [Excessive bleeding in the premenopausal period] Onset: 10-25-2011 10-25-2011 Chronic Open wounds of extremities (20 sources) Laceration of right thumb; Translations: [Laceration without foreign body of right thumb with damage to nail, initial encounter] 08-02-2019 Episodic Other gastrointestinal disorders (8 sources) Bloating symptom; Translations: [Abdominal distension (gaseous)] 08-16-2022 Episodic Other gastrointestinal disorders (10 sources) Abdominal distension (gaseous); Translations: [Flatulence, eructation, and gas pain] 08-16-2022 Episodic Other gastrointestinal disorders (2 sources) Abdominal bloating; Translations: [Abdominal distension (gaseous)] 08-16-2022 Episodic Other lower respiratory disease (1 source) Cough; Translations: [Acute cough] 07-05-2023 Episodic Other lower respiratory disease (1 source) H/O: asthma; Translations: [Personal history of other diseases of the respiratory system] 07-05-2023 Episodic Other nutritional; endocrine; and metabolic disorders (2 sources) Obesity; Translations: [Obesity, unspecified] 02-14-2023 Chronic Other nutritional; endocrine; and metabolic disorders (2 sources) Obesity, unspecified; Translations: [Obesity, unspecified] 02-14-2023 Chronic Other upper respiratory disease (11 sources) Allergic rhinitis; Translations: [Allergic rhinitis, unspecified] 08-02-2022 Chronic Other upper respiratory disease (3 sources) Allergic rhinitis, unspecified; Translations: [Allergic rhinitis, cause unspecified] 10-31-2022 Chronic Other upper respiratory disease (1 source) Nasal sinus problem; Translations: [Other specified disorders of nose and nasal sinuses] Episodic Other upper respiratory infections (20 sources) Sinusitis; Translations: [Chronic sinusitis, unspecified] 08-02-2019 Chronic Residual codes; unclassified (10 sources) Sleep apnea; Translations: [Sleep apnea, unspecified] 07-02-2022 Chronic Residual codes; unclassified (16 sources) Sleep apnea, unspecified; Translations: [Unspecified sleep apnea] 07-02-2022 Chronic Residual codes; unclassified (5 sources) Obstructive sleep apnea syndrome; Translations: [Obstructive sleep apnea (adult) (pediatric)] 10-31-2022 Chronic Residual codes; unclassified (3 sources) Obstructive sleep apnea (adult) (pediatric); Translations: [Obstructive sleep apnea (adult)(pediatric)] 10-31-2022 Chronic Viral infection (17 sources) Herpes zoster; Translations: [Zoster without complications] 08-02-2019 Episodic Past or Other Problems Problem Classification Problem Date Documented Da te Episodic/Chronic Complications of surgical procedures or medical care (8 sources) Dehiscence of surgical wound; Translations: [Disruption of external operation (surgical) wound, not elsewhere classified, initial encounter] Onset: 06-28-2011 06-28-2011 Episodic Diabetes mellitus without complication (8 sources) Impaired glucose tolerance; Translations: [Impaired glucose tolerance (oral)] Onset: 10-05-2011 10-05-2011 Episodic Other aftercare (2 sources) terminal operations supervisor (current) use of insulin; Translations: [retirement (current) use of insulin] Onset: 05-11-2024 Episodic Other connective tissue disease (8 sources) Plantar fascial fibromatosis; Translations: [Plantar fascial fibromatosis] Onset: 06-13-2011 06-13-2011 Episodic Other connective tissue disease (8 sources) Disorder of rotator cuff; Translations: [Other specified disorders of rotator cuff syndrome of shoulder and allied disorders] Onset: 01-14-2013 01-14-2013 Episodic Other connective tissue disease (8 sources) Adhesive capsulitis of shoulder; Translations: [Adhesive capsulitis of unspecified shoulder] Onset: 01-14-2013 01-14-2013 Episodic Other non-traumatic joint disorders (1 source) Pain in right hip; Translations: [Pain in right hip] Onset: 04-23-2024 Episodic Other screening for suspected conditions (not mental disorders or infectious disease) (20 sources) Patient encounter status; Translations: [Encounter for screening for malignant neoplasm of colon] Onset: 02-25-2024 08-16-2022 Episodic Other upper respiratory infections (4 sources) Nasal discharge; Translations: [Postnasal drip] Onset: 05-11-2024 Episodic Spondylosis; intervertebral disc disorders; other back problems (12 sources) Chronic low back pain; Translations: [Lumbago with sciatica, right side] Onset: 02-05-2022 Episodic Results Test Name Value Interpretation Reference Range Facility Endocrinology Visit Reporton 05-11-2024 Endocrinology Visit Report [facility] [address] [place] [address] [address] [place], [place] [address] OFFICE VISIT Date of Service: 05/11/24 MR#: [id number] Acct: [id number] Name: THUAN GARDNER Rep #: [id number] : 1960 Provider: LENNIE luque Age/Sex: 64/F Location: [facility] Status: Signed Intake Vital Signs 02/03/24 11:10 05/11/24 09:04 Height 5 ft 4.75 in 5 ft 4.75 in Weight: 213 lb 211 lb 2 oz BMI 35.7 35.4 BP 138/82 H 136/78 H Blood Pressure Location Lt brachial Rt brachial Position Sitting Sitting Pulse 79 84 Pulse Source Monitor Monitor Pulse Oximetry (%) 96 98 Oxygen Delivery Method room air room air Intake Visit Reasons: 3 M FU Chief Complaint: f/u diabetes Is patient in pain?: No Allergies mold Allergy (Intermediate, Verified 05/11/24 09:07) Other Seasonal Allergies: Uncoded (environmental) Allergy (Verified 05/11/24 09:07) ASTHMA LIKE SYMPTOMS Medications ???Medication ???Instructions ???Recorded ???Confirmed ???Type metformin 1,000 mg tablet 1,000 mg PO BIDCM DIABETES 07/08/17 05/11/24 History rosuvastatin 10 mg tablet 10 mg PO QHS CHOLESTEROL 07/08/17 05/11/24 History loratadine 10 mg capsule 10 mg PO DAILY 01/14/20 05/11/24 History magnesium oxide 400 mg PO DAILY 01/14/20 05/11/24 History multivitamin with minerals 1 ea PO DAILY 01/14/20 05/11/24 History cholecalciferol (vitamin D3) 50 50 mcg PO DAILY 09/27/22 05/11/24 History mcg (2,000 unit) capsule (Vitamin D3) insulin glargine 100 unit/mL (3 60 unit subcut QPM 09/27/22 05/11/24 History mL) subcutaneous pen (Lantus Solostar U-100 Insulin) losartan 50 mg tablet 50 mg PO DAILY 09/27/22 05/11/24 History montelukast 10 mg tablet 10 mg PO QHS 09/27/22 05/11/24 History (Singulair) ipratropium bromide 21 mcg (0.03 1 spray intranasal BID rhinitis 02/03/23 05/11/24 Rx %) nasal spray #30 mL umeclidinium 62.5 mcg-vilanterol 1 inh inhalation DAILY #60 ea 02/03/23 05/11/24 Rx 25 mcg/actuation powdr for inhalation (Anoro Ellipta) Jardiance 25 mg tablet 25 mg PO DAILY #90 tabs 08/05/23 05/11/24 Rx (empagliflozin) meloxicam 15 mg tablet 15 mg PO QDAY 02/03/24 05/11/24 History spironolactone 50 mg tablet 50 mg PO QDAY 02/03/24 05/11/24 History blood-glucose sensor (FreeStyle #2 ea 05/11/24 05/11/24 Rx Rosalind 3 Sensor device) cyclobenzaprine 5 mg tablet 5 mg PO BID PRN muscle pain 05/11/24 05/11/24 History dexamethasone 1 mg tablet 1 mg PO ONCE #1 TAB 05/11/24 05/11/24 Rx dulaglutide 3 mg/0.5 mL 3 mg (0.5 mL) subcut QWEEK #2 mL 05/11/24 05/11/24 Rx subcutaneous pen injector (Trulicity) metoprolol succinate 25 mg 25 mg PO QDAY 05/11/24 05/11/24 History tablet,extended release 24 hr PFSH Medical History SANDI on CPAP Wears glasses Wears dentures Post-menopausal Anxiety History of steroid therapy Insulin dependent diabetes mellitus Arthritis Dietary restriction Gastric reflux Former smoker CPAP (continuous positive airway pressure) dependence Shortness of breath on exertion Leg cramps History of pain when walking History of edema History of echocardiogram History of irregular heartbeat Elevated IgE level Allergic rhinitis due to allergen Chronic obstructive asthma (with obstructive pulmonary disease) Back pain Difficulty balancing Glaucoma Asthma Fatigue Shoulder pain SOB (shortness of breath) Arthritis HTN (hypertension) Surgical History History of cystoscopy History of tubal ligation H/O removal of cyst History of tonsillectomy Family History Other Arthritis CVA (cerebral vascular accident) Diabetes Emphysema of lung FH: cataracts Glaucoma Gout Heart disease Kidney disease Lung disease Porphyria Social History Smoking Status: Former smoker how long ago did patient quit smokin years ago alcohol intake: current substance use type: does not use HPI HPI Chief Complaint: f/u diabetes Details: THUAN GARDNER, is a 64 F who presents to the office today for evaluation and management of diabetes. A1C on 04/24/24 with PCP was 7.6%, improved significantly from 02/03/24 at 10.7%. She has lost an additional 2 lbs. Currently taking Lantus 60 u once daily, metformin 1 gm BID with food, Jardiance 25 mg once daily, and Trulicity 1.5 mg qweek- tolerating well. PCP increased dose; however, patient states she has not been able to fill it yet "because it needs approved by my insurance." She brings a blood sugar log for review. Fasting blood sugars ranging 115. Denies any blood sugar <70. She reports on sever (more content not included)... Normal [facility] Endocrinology Visit Reporton 02-03-2024 Endocrinology Visit Report [facility] [address] [place] [address] OFFICE VISIT Date of Service: 02/03/24 MR#: [id number] Acct: [id number] Name: THUAN GARDNER Rep #: [id number] : 1960 Provider: LENNIE luque Age/Sex: 63/F Location: [facility] Status: Signed Intake Vital Signs 07/25/23 09:11 02/03/24 11:10 Height 5 ft 4.75 in 5 ft 4.75 in Weight: 213 lb BMI 35.7 BP 138/82 H Blood Pressure Location Lt brachial Position Sitting Pulse 79 Pulse Source Monitor Pulse Oximetry (%) 96 Oxygen Delivery Method room air Intake Visit Reasons: 5 M FU Chief Complaint: f/u diabetes Block Mechanic Required: No Accompanied by: Self Is patient in pain?: No Allergies mold Allergy (Intermediate, Verified 02/03/24 11:15) Other Seasonal Allergies: Uncoded (environmental) Allergy (Verified 02/03/24 11:15) ASTHMA LIKE SYMPTOMS Medications ???Medication ???Instructions ???Recorded ???Confirmed ???Type metformin 1,000 mg tablet 1,000 mg PO BIDCM DIABETES 07/08/17 02/03/24 History rosuvastatin 10 mg tablet 10 mg PO QHS CHOLESTEROL 07/08/17 02/03/24 History loratadine 10 mg capsule 10 mg PO DAILY 01/14/20 02/03/24 History magnesium oxide 400 mg PO DAILY 01/14/20 02/03/24 History multivitamin with minerals 1 ea PO DAILY 01/14/20 02/03/24 History cholecalciferol (vitamin D3) 50 50 mcg PO DAILY 09/27/22 02/03/24 History mcg (2,000 unit) capsule (Vitamin D3) insulin glargine 100 unit/mL (3 60 unit subcut QPM 09/27/22 02/03/24 History mL) subcutaneous pen (Lantus Solostar U-100 Insulin) losartan 50 mg tablet 50 mg PO DAILY 09/27/22 02/03/24 History montelukast 10 mg tablet 10 mg PO QHS 09/27/22 02/03/24 History (Singulair) ipratropium bromide 21 mcg (0.03 1 spray intranasal BID rhinitis 02/03/23 02/03/24 Rx %) nasal spray #30 mL umeclidinium 62.5 mcg-vilanterol 1 inh inhalation DAILY #60 ea 02/03/23 02/03/24 Rx 25 mcg/actuation powdr for inhalation (Anoro Ellipta) Jardiance 25 mg tablet 25 mg PO DAILY #90 tabs 08/05/23 02/03/24 Rx (empagliflozin) azithromycin 250 mg tablet See Rx Instructions PO .COMPLEX #6 02/03/24 02/03/24 Rx tabs dulaglutide 1.5 mg/0.5 mL 1.5 mg subcut QWEEK 02/03/24 02/03/24 History subcutaneous pen injector (Trulicity) meloxicam 15 mg tablet 15 mg PO QDAY 02/03/24 02/03/24 History spironolactone 50 mg tablet 50 mg PO QDAY 02/03/24 02/03/24 History PFSH Medical History SANDI on CPAP Wears glasses Wears dentures Post-menopausal Anxiety History of steroid therapy Insulin dependent diabetes mellitus Arthritis Dietary restriction Gastric reflux Former smoker CPAP (continuous positive airway pressure) dependence Shortness of breath on exertion Leg cramps History of pain when walking History of edema History of echocardiogram History of irregular heartbeat Elevated IgE level Allergic rhinitis due to allergen Chronic obstructive asthma (with obstructive pulmonary disease) Back pain Difficulty balancing Glaucoma Asthma Fatigue Shoulder pain SOB (shortness of breath) Arthritis HTN (hypertension) Surgical History History of cystoscopy History of tubal ligation H/O removal of cyst History of tonsillectomy Family History Other Arthritis CVA (cerebral vascular accident) Diabetes Emphysema of lung FH: cataracts Glaucoma Gout Heart disease Kidney disease Lung disease Porphyria Social History Smoking Status: Former smoker how long ago did patient quit smokin years ago alcohol intake: current substance use type: does not use HPI HPI Chief Complaint: f/u diabetes Details: THUAN GARDNER, is a 63 F who presents to the office today for evaluation and management of diabetes. A1C today is 10.7%, increased significantly from 07/25/23 at 7.1%. She has lost 2 lbs. She lost her insurance at the beginning of August this year and was unable to get Trulicity or Jardiance. Currently taking Lantus 60 u once daily, metformin 1 gm BID with food, for the past 2 weeks she has been back on Jardiance 25 mg once daily and Trulicity 0.75 mg qweek- tolerating well. She does not have any blood sugars to review; however, she denies any blood sugar <70. BP stable today at 138/82. Currently taking losartan 50 mg once daily. Reports that she was instructed by PCP to monitor BP at home d/t elevation during office visit. She is taking daily statin. She had labs completed on 01/29/24: GFR 113 creatinine 0.57 -M:C triglycerides 89 total cholesterol 110 LDL (more content not included)... Normal [facility] SCRN MAMM (CAD)W/GUERO Ruby n 02-03-2024 SCRN MAMM (CAD)W/GUERO BILAT [facility] Imaging Services [address] [place], [place] [address] SCRN MAMM (CAD)W/GUERO BILAT MR#: [id number] Acct: [id number] Name: THUAN GARDNER Rep #: [id number] : 1960 F 63 From: Yves velazquez MD [facility] Status: REG CLI Study: SCRN MAMM (CAD)W/GUERO BILAT Date of Exam: 01/18 11/10 Exam# [id number] Ordering Dr: Basilia Kwan [facility] HEARING SCREEN COORDINATOR-C [id number] MAMMOGRAPHY - BILATERAL SCREENING REASON FOR EXAM: Female, 63 years old. Routine annual screening examination. PERTINENT HISTORY: Non-contributory. TECHNIQUE: Digital bilateral breast guero (3D mammographic acquisition) in the CC and MLO projections. 2-D mediolateral oblique (MLO) and craniocaudad (CC) views of both breasts were obtained. CAD: Full Field Digital Mammography with Computer Added Detection was performed. COMPARISON: Comparison is made with prior study dated August 10, 2022 and August 15, 2020. FINDINGS: Breast Composition: The breasts are almost entirely fatty. There are no dominant masses or suspicious calcifications. No other significant abnormalities are identified. There has been no significant change since the prior study. BI/SCRN MAMM (CAD)W/GUERO BILAT IMPRESSION: Stable bilateral screening mammogram. Yearly follow-up mammogram recommended. (A) ASSESSMENT CATEGORY: BIRADS Category 1: Negative. A letter regarding these results will be sent to the patient by the facility within 30 days. Approximately 10% of breast cancers are not detected by mammography. A normal mammogram should not delay biopsy of a clinically suspicious abnormality. [id number] Electronically Signed: Yves Lino MD at 13:13 EDT , CC: [facility] HEARING SCREEN COORDINATOR-C Basilia Kwan; [facility] Applications Instructor: Signed Normal [facility] Absolute lymphocyte countOrd ered By: Basilia wKan on 07-18-2023 Lymphocytes Auto (Unsp spec) [#/Vol] 1.78 10*3/uL 0.83-4.51 [facility] Automated lymphocyte count a s percentage of total leukocytesOrdered By: Basilia Kwan on 07-18-2023 Lymphocytes/100 WBC Auto (Unsp spec) 14.7 % 19-41 [facility] Basophil percentageOrdered B y: Basilia Kwan on 07-18-2023 Basophils/100 WBC (Bld) 0.6 % 0-1 [facility] Bilirubin [Mass/Vol] 0.40 mg/dL 0.20-1.00 [facility] Comment on above: For patients on eltr ombopag therapy, use of Dimension [place] TBIL is not recommended. Chloride [Moles/Vol] 107 mmol/L 98-107 [facility] Cholesterol [Mass/Vol] 122 mg/dL <200 [facility] Comment on above: <200 mg/dL Desirable 200-240 mg/dL Borderline >240 mg/dL High Risk Eosinophils/100 WBC (Bld) 1.8 % 0-5 [facility] Glucose [Mass/Vol] 98 mg/dL 74-106 [facility] Hemoglobin (Bld) [Mass/Vol] 13.9 g/dL 12.0-15.0 [facility] Monocytes/100 WBC (Bld) 9.6 % 0-10 [facility] Neutrophils (Bld) [#/Vol] 8.9 10*3/uL 2.0-7.7 [facility] Neutrophils/100 WBC (Bld) 72.9 % 47-70 [facility] Potassium [Moles/Vol] 3.8 mmol/L 3.5-5.1 [facility] Protein [Mass/Vol] 6.5 g/dL 6.4-8.2 [facility] Sodium [Moles/Vol] 138 mmol/L 136-145 [facility] Triglyceride [Mass/Vol] 102 mg/dL <199 [facility] Comment on above: The drugs N-Acetylcy steine and Metamizole may falsely depress this assay.Serum Triglycerides Reference Interval Normal <150 mg/dL Borderline high 150 - 199 mg/dL High 200 - 499 mg/dL Very High > or = 500 mg/dL WBC (Bld) [#/Vol] 12.1 10*3/uL 4.4-11.0 [facility] Determination of erythrocyte mean corpuscular volume (MCV)Ordered By: Basilia Kwan on 07-18-2023 MCV (RBC) [Entitic vol] 84.6 fL 81-99 [facility] Erythrocyte distribution wid th ratioOrdered By: Basilia Kwan on 07-18-2023 Erythrocyte distribution width (RBC) [Ratio] 16.1 % 11.6-14.6 [facility] Erythrocyte distribution wid th standard deviationOrdered By: Basilia Kwan on 07-18-2023 Erythrocyte distribution width (RBC) [Entitic vol] 49.7 fL 35.1-43.9 [facility] Hematocrit Auto (Bld) [Volum e fraction]Ordered By: Basilia Kwan on 07-18-2023 Hematocrit (Bld) [Volume fraction] 44.4 % 37-47 [facility] Immature granulocytes/100 WB C Auto (Bld)Ordered By: Basilia Kwan on 07-18-2023 Immature granulocytes/100 WBC (Bld) 0.400 % 0.0-0.9 [facility] Comment on above: IG% - Immature Granu locytes (promyelocytes, myelocytes and metamyelocytes) > 1% indicates that a LEFT SHIFT is Present. Laboratory - Chemistry and C hemistry - challengeOrdered By: Basilia Kwan on 07-18-2023 Albumin/Globulin [Mass ratio] 1.2 {ratio} 0.9-2.4 [facility] ALP [Catalytic activity/Vol] 67 U/L 45-117 [facility] ALT [Catalytic activity/Vol] 33 U/L 13-56 [facility] Cholesterol in HDL [Mass/Vol] 48 mg/dL >40 [facility] Comment on above: The drugs N-Acetylcy steine and Metamizole may falsely depress this assay. Reference Range HDL <40 mg/dL Low HDL Cholesterol HDL >or= 60 mg/dL High HDL Cholesterol Cholesterol in LDL [Mass/Vol] 54 mg/dL 0-130 [facility] CO2 [Moles/Vol] 28.0 mmol/L 21.0-32.0 [facility] Globulin (S) [Mass/Vol] 3.0 g/dL 2.2-4.2 [facility] Urea nitrogen/Creatinine [Mass ratio] 28.9 mg/mg 10-20 [facility] Laboratory - Hematology and Cell countsOrdered By: Basilia Kwan on 07-18-2023 MCH (RBC) [Entitic mass] 26.5 pg 27.0-32.0 [facility] MCHC (RBC) [Mass/Vol] 31.3 g/dL 32-36 [facility] Nucleated RBC/100 WBC (Bld) [Ratio] 0 % 0-5 [facility] Platelet mean volume (Bld) [Entitic vol] 9.3 fL 6.2-12.0 [facility] Platelets (Bld) [#/Vol] 357 10*3/uL 150-450 [facility] No Panel InformationOrdered By: Basilia Kwan on 07-18-2023 Estimated GFR (MDRD) Amer 133 mL/min >60 [facility] Comment on above: GFR Calc Estimated GFR (MDRD) Non-Af Amer 110 mL/min >60 [facility] Comment on above: Non- GFR Calc VLDL Cholesterol 20 mg/dL 5-40 [facility] RBC Auto (Bld) [#/Vol]Ordere d By: Basilia Kwan on 07-18-2023 RBC (Bld) [#/Vol] 5.25 10*6/uL 4.2-5.4 [facility] Serum or plasma calcium yordy urement (mass/volume)Ordered By: Basilia Kwan on 07-18-2023 Calcium [Mass/Vol] 9.1 mg/dL 8.5-10.1 [facility] Serum or plasma creatinine m easurement (mass/volume)Ordered By: Basilia Kwan on 07-18-2023 Creatinine [Mass/Vol] 0.59 mg/dL 0.55-1.02 [facility] Comment on above: The validity of the calculated GFR & GFRAA in patients over 70 years has not been determined. Clinical correlation is essential. Serum or plasma urea nitroge n measurement (mass/volume)Ordered By: Basilia Kwan on 07-18-2023 Urea nitrogen [Mass/Vol] 17 mg/dL 7-18 [facility] Thin prep Papanicolaou smear with manual screeningOrdered By: Basilia Kwan on 07-18-2023 Thin prep Papanicolaou smear with manual screening 3.5 g/dL 3.2-5.0 [facility] Thin prep Papanicolaou smear with manual screening 21 U/L 15-37 [facility] Thin prep Papanicolaou smear with manual screening 3 5-15 [facility] Thin prep Papanicolaou smear with manual screening 18.3 mg/L NO RANGE EST. [facility] CNOVon 07-05-2023 CNOV Office Visit (UCTR ) THUAN GARDNER ([id number]) 1960 F Date Time Provider Department 07/05/23 11:00 AM [facility] During your visit today, we recorded the following information about you: Temperature Pulse Respiration Blood pressure 97.9 degrees 86/minute 20/minute 132/74 Weight 100.2 kg Scot Cheung APRN.CNP 07/05/2023 12:07 PM Signed Subjective HPI HPI Thuan Gardner is a 63 year old female who [...] right TONSILLECTOMY HX ALLERGIES Bupropion Hcl MEDICATIONS umeclidinium-vilanter ol (ANORO ELLIPTA) 62.5-25 mcg/actuation inhaler Inhale 1 [...] 10 mg by mouth once daily. insulin glargine,hum.rec.anlo g (LANTUS SOLOSTAR U-100 INSULIN SUBCUTANEOUS) Inject subcutaneously. [...] 5:21pm (Patient not taking: Reported on 07/05/2023) Pioglitazone-Glimepir meir 30-2 mg per tablet Take 1 tablet [...] symptoms - INFLUENZA AANDB MOLECULAR (POC) - CO (more content not included)... Normal [facility] INFLUENZA A&B MOLECULAR (POC )on 07-05-2023 Flu A (POCT) Negative Negative [facility] Flu B (POCT) Negative Negative [facility] Procedural Control Valid [facility] SARS-CoV-2 RNA Resp Ql VICTOR HUGO+p robeon 07-05-2023 SARS-CoV-2 (COVID-19) RNA VICTOR HUGO+probe Ql (Resp) COVID 19 RESULT: Not detected The method used is RT-PCR or an equivalent NAAT method. Reference Range (the expected result in uninfected individuals): Not detected Normal [facility] Comment on above: Performed By: #### [id number] #### [facility] CLIA [id number] [address] [place] [address] [place] XR CHEST 2V FRONTAL/LATon XR CHEST 2V FRONTAL/LAT * * *Final Repor t* * * DATE OF EXAM: Jul 05 2023 11:42AM WOX [id number] - XR CHEST 2V FRONTAL/LAT / PROCEDURE REASON: Acute cough * * * * Physician Interpretation * * * * EXAMINATION: CHEST RADIOGRAPH (2 VIEW FRONTAL and LATERAL) CLINICAL HISTORY: Acute cough MQ: XC2_6 EXAM DATE/TIME: 07/05/2023 11:42 AM COMPARISON: No relevant prior studies available. RESULT: Lines, tubes, and devices: None. Lungs and pleura: No consolidation. No lung mass. No pleural effusion. No pneumothorax. Cardiomediastinal silhouette: Normal cardiomediastinal silhouette. Bones and soft tissues: Unremarkable. IMPRESSION: Unremarkable exam with no acute radiographic abnormality. Applications Instructor: [employer] Transcribe Date/Time: Jul 05 2023 11:43A Dictated by : FENG ZELAYA MD This examination was interpreted and the report reviewed and electronically signed by: FENG ZELAYA MD on Jul 05 2023 11:43AM EST [id number] Normal [facility] XR Chest PA and Lateralon IMPRESSION: Unremarkable exam with no acute radiographic abnormality. Applications Instructor: [facility] [employer] Transcribe Date/Time: Jul 05 2023 11:43A Dictated by : FENG ZELAYA MD This examination was interpreted and the report reviewed and electronically signed by: FENG ZELAYA MD on Jul 05 2023 11:43AM [facility] DIVISION OF RADIOLOGY * * *Final Report* * * DATE OF EXAM: Jul 05 2023 11:42AM WOX [id number] - XR CHEST 2V FRONTAL/LAT / PROCEDURE REASON: Acute cough * * * * Physician Interpretation * * * * EXAMINATION: CHEST RADIOGRAPH (2 VIEW FRONTAL & LATERAL) CLINICAL HISTORY: Acute cough MQ: XC2_6 EXAM DATE/TIME: 07/05/2023 11:42 AM COMPARISON: No relevant prior studies available. RESULT: Lines, tubes, and devices: None. Lungs and pleura: No consolidation. No lung mass. No pleural effusion. No pneumothorax. Cardiomediastinal silhouette: Normal cardiomediastinal silhouette. Bones and soft tissues: Unremarkable. DIVISION OF RADIOLOGY Provider, [facility] - 07/05/2023 * * *Final Report* * * DATE OF EXAM: Jul 05 2023 11:42AM WOX [id number] - XR CHEST 2V FRONTAL/LAT / PROCEDURE REASON: Acute cough * * * * Physician Interpretation * * * * EXAMINATION: CHEST RADIOGRAPH (2 VIEW FRONTAL & LATERAL) CLINICAL HISTORY: Acute cough MQ: XC2_6 EXAM DATE/TIME: 07/05/2023 11:42 AM COMPARISON: No relevant prior studies available. RESULT: Lines, tubes, and devices: None. Lungs and pleura: No consolidation. No lung mass. No pleural effusion. No pneumothorax. Cardiomediastinal silhouette: Normal cardiomediastinal silhouette. Bones and soft tissues: Unremarkable. IMPRESSION IMPRESSION: Unremarkable exam with no acute radiographic abnormality. Applications Instructor: [employer] Transcribe Date/Time: Jul 05 2023 11:43A Dictated by : FENG ZELAYA MD This examination was interpreted and the report reviewed and electronically signed by: FENG ZELAYA MD on Jul 05 2023 11:43AM [facility] Radiology Study observation (narrative) Felipe [facility] XR Chest PA and LateralOrder ed By: [facility] Provider on 07-05-2023 [facility] Laboratory - Hematology and Cell countson 04-25-2023 HbA1c (Bld) [Mass fraction] 7.5 % 4.2-6.3 [facility] Basophil percentageOrdered B y: Basilia Kwan on 12-29-2022 Chloride [Moles/Vol] 105 mmol/L 98-107 [facility] Glucose [Mass/Vol] 148 mg/dL 74-106 [facility] Comment on above: Fasting Glucose resu lt greater than or equal to 126 mg/dL suggests DIABETES MELLITUS per A.D.A. criteria. Potassium [Moles/Vol] 3.8 mmol/L 3.5-5.1 [facility] Sodium [Moles/Vol] 140 mmol/L 136-145 [facility] Laboratory - Chemistry and C hemistry - challengeOrdered By: Basilia Kwan on 12-29-2022 CO2 [Moles/Vol] 28.0 mmol/L 21.0-32.0 [facility] Urea nitrogen/Creatinine [Mass ratio] 23.3 mg/mg 10-20 [facility] No Panel InformationOrdered By: Basilia Kwan on 12-29-2022 Estimated GFR (MDRD) Amer 120 mL/min >60 [facility] Comment on above: GFR Calc Estimated GFR (MDRD) Non-Af Amer 99 mL/min >60 [facility] Comment on above: Non- GFR Calc Serum or plasma calcium yordy urement (mass/volume)Ordered By: Basilia Kwan on 12-29-2022 Calcium [Mass/Vol] 8.9 mg/dL 8.5-10.1 [facility] Serum or plasma creatinine m easurement (mass/volume)Ordered By: Basliia Kwan on 12-29-2022 Creatinine [Mass/Vol] 0.64 mg/dL 0.55-1.02 [facility] Comment on above: The validity of the calculated GFR & GFRAA in patients over 70 years has not been determined. Clinical correlation is essential. Serum or plasma urea nitroge n measurement (mass/volume)Ordered By: Basilia Kwan on 12-29-2022 Urea nitrogen [Mass/Vol] 15 mg/dL 7-18 [facility] Thin prep Papanicolaou smear with manual screeningOrdered By: Basilia Kwan on 12-29-2022 Thin prep Papanicolaou smear with manual screening 7 5-15 [facility] Thin prep Papanicolaou smear with manual screening 5.1 mg/L NO RANGE EST. [facility] Whole blood hemoglobin A1c/t otal hemoglobin ratio (mass fraction)Ordered By: Basilia Kwan on 12-29-2022 HbA1c (Bld) [Mass fraction] 7.6 % 3.8-5.6 [facility] Comment on above: Normal < 5.7 % Predi abetic 5.7 - 6.4 % Diabetic >or= 6.5 % Please note range changes. No Panel InformationOrdered By: Dr. Au on 11-10-2022 Follicle Stimulating Hormone 21.2 mIU/mL [facility] Comment on above: NORMAL REFERENCE RAN GES FEMALE FOLLICULAR 2.3 - 12.6 mIU/mL MID-CYCLE PEAK 5.2 - 17.5 mIU/mL LUTEAL 1.7 - 12.9 mIU/mL POST-MENOPAUSAL ON MHT 5.9 - 72.8 mIU/mL NOT ON MHT 12.7 - 132.2 mlU/mL MALE 0.7 - 10.8 mIU/mL Luteinizing Hormone 10.4 mIU/mL [facility] Comment on above: NORMAL REFERENCE RAN GES FEMALE FOLLICULAR 1.9 - 26.2 mIU/mL MID-CYCLE PEAK 22.8 - 76.1 mIU/mL LUTEAL 0.6 - 16.6 mIU/mL POST-MENOPAUSAL ON MHT 1.1 - 52.4 mIU/mL NOT ON MHT 8.6 - 61.8 mIU/mL MALE 1.2 - 10.6 mIU/mL Serum or plasma estradiol (E 2) measurement (mass/volume)Ordered By: Dr. Au on 11-10-2022 E2 [Mass/Vol] pg/mL [facility] Comment on above: NORMAL REFERENCE RAN GES FEMALE FOLLICULAR 21.4 - 164.8 pg/mL MID-CYCLE PEAK 49.9 - 367.2 pg/mL LUTEAL 40.2 - 259.0 pg/mL POST-MENOPAUSAL ON MHT <11.0 - 462.1 pg/mL NOT ON MHT <11.0 - 58.3 pg/mL MALE <11.0 - 52.5 pg/mL NOTE:[employer] HAS CONFIRMED THE DRUG FULVETRANT (FASLODEX) MAY CAUSE FALSELY ELEVATED ESTRADIOL RESULTS WHEN USING THIS TEST METHOD. IF PATIENT IS TAKING FULVESTRANT AN ALTERNATIVE METHOD SHOULD BE USED TO DETERMINE ESTRADIOL CONCENTRATION. Serum or plasma progesterone measurement (mass/volume)Ordered By: Dr. Au on 11-10-2022 Progesterone [Mass/Vol] ng/mL See Comment [facility] Comment on above: Progesterone Referen ce Table: UNITS Female: Follicular 0.15 - 1.40 ng/mL Luteal 3.34 - 25.56 ng/mL Mid-luteal 4.44 - 28.03 ng/mL Postmenopausal 0.0 - 0.73 ng/mL : 1st Trimester 11.22 - 90.00 ng/mL 2nd Trimester 25.55 - 89.40 ng/mL 3rd Trimester 48.40 -422.50 ng/mL Glucose Glucometer (BldC) [M ass/Vol]Ordered By: Dr. Ndiaye on 10-01-2022 Glucose [Mass/Vol] 110 mg/dL 74-106 [facility] Comment on above: MANAGEMENT OF PATIEN T CARE PER NURSING PROTOCOL Culture, urineOrdered By: Hussain Kwan on 09-17-2022 Bacteria identified Cx Nom (U) Positive [facility] Absolute lymphocyte countOrd ered By: Basilia Kwan on 09-15-2022 Lymphocytes Auto (Unsp spec) [#/Vol] 1.95 10*3/uL 0.83-4.51 [facility] Basophil percentageOrdered B y: Basilia Kwan on 09-15-2022 Basophils/100 WBC (Bld) 0.4 % 0-1 [facility] Bilirubin [Mass/Vol] 0.40 mg/dL 0.20-1.00 [facility] Comment on above: For patients on eltr ombopag therapy, use of Dimension [place] TBIL is not recommended. Chloride [Moles/Vol] 107 mmol/L 98-107 [facility] Eosinophils/100 WBC (Bld) 1.5 % 0-5 [facility] Glucose [Mass/Vol] 112 mg/dL 74-106 [facility] Comment on above: Fasting Glucose resu lt from 100 to 125 mg/dL suggests IMPAIRED HOMEOSTASIS per A.D.A. criteria. Neutrophils (Bld) [#/Vol] 8.0 10*3/uL 2.0-7.7 [facility] Neutrophils/100 WBC (Bld) 71.7 % 47-70 [facility] Potassium [Moles/Vol] 3.8 mmol/L 3.5-5.1 [facility] Protein [Mass/Vol] 6.4 g/dL 6.4-8.2 [facility] Sodium [Moles/Vol] 137 mmol/L 136-145 [facility] WBC (Bld) [#/Vol] 11.1 10*3/uL 4.4-11.0 [facility] Bilirubin Test strip Ql (U)O rdered By: Basilia Kwan on 09-15-2022 Bilirubin Ql (U) Negative Negative [facility] Blood erythrocytes count (nu mber/volume)Ordered By: Basilia Kwan on 09-15-2022 RBC (Bld) [#/Vol] 4.34 10*6/uL 4.2-5.4 [facility] Blood hemoglobin measurement (mass/volume)Ordered By: Basilia Kwan on 09-15-2022 Hemoglobin (Bld) [Mass/Vol] 12.4 g/dL 12.0-15.0 [facility] Blood lymphocytes/100 leukoc ytesOrdered By: Basilia Kwan on 09-15-2022 Lymphocytes/100 WBC (Bld) 17.6 % 19-41 [facility] Blood monocytes/100 leukocyt esOrdered By: Basilia Kwan on 09-15-2022 Monocytes/100 WBC (Bld) 8.5 % 0-10 [facility] Blood platelet mean volumeOr dered By: Basilia Kwan on 09-15-2022 Platelet mean volume (Bld) [Entitic vol] 9.0 fL 6.2-12.0 [facility] Culture, urineOrdered By: Hussain Kwan on 09-15-2022 Bacteria identified Cx Nom (U) Positive [facility] Determination of erythrocyte mean corpuscular volume (MCV)Ordered By: Basilia Kwan on 09-15-2022 MCV (RBC) [Entitic vol] 88.9 fL 81-99 [facility] Hematocrit Auto (Bld) [Volum e fraction]Ordered By: Basilia Kwan on 09-15-2022 Hematocrit (Bld) [Volume fraction] 38.6 % 37-47 [facility] Ketones Test strip Ql (U)Ord ered By: Basilia Kwan on 09-15-2022 Ketones Ql (U) Negative Negative [facility] Laboratory - Chemistry and C hemistry - challengeOrdered By: Basilia Kwan on 09-15-2022 ALP [Catalytic activity/Vol] 72 U/L 45-117 [facility] ALT [Catalytic activity/Vol] 33 U/L 13-56 [facility] CO2 [Moles/Vol] 26.0 mmol/L 21.0-32.0 [facility] Globulin (S) [Mass/Vol] 3.0 g/dL 2.2-4.2 [facility] Natriuretic peptide B (Bld) [Mass/Vol] 12.7 pg/mL 0-100 [facility] Urea nitrogen/Creatinine [Mass ratio] 30.8 mg/mg 10-20 [facility] Laboratory - Hematology and Cell countsOrdered By: Basilia Kwan on 09-15-2022 Erythrocyte distribution width (RBC) [Entitic vol] 47.7 fL 35.1-43.9 [facility] Erythrocyte distribution width (RBC) [Ratio] 14.7 % 11.6-14.6 [facility] Immature granulocytes/100 WBC (Bld) 0.300 % 0.0-0.9 [facility] Comment on above: IG% - Immature Granu locytes (promyelocytes, myelocytes and metamyelocytes) > 1% indicates that a LEFT SHIFT is Present. MCH (RBC) [Entitic mass] 28.6 pg 27.0-32.0 [facility] Nucleated RBC/100 WBC (Bld) [Ratio] 0 % 0-5 [facility] MCHC Auto (RBC) [Mass/Vol]Or dered By: Basilia Kwan on 09-15-2022 MCHC (RBC) [Mass/Vol] 32.1 g/dL 32-36 [facility] Nitrite Test strip Ql (U)Ord ered By: Basilia Kwan on 09-15-2022 Nitrite Ql (U) Negative Negative [facility] No Panel InformationOrdered By: Basilia Kwan on 09-15-2022 D-Dimer Quantitative (PE/DVT) < 0.27 FEU/ug/m 0.27-0.49 [facility] Comment on above: NORMAL D-Dimer level (<0.50) indicates no DVT or PE. Estimated GFR (MDRD) Amer 126 mL/min >60 [facility] Comment on above: GFR Calc Estimated GFR (MDRD) Non-Af Amer 104 mL/min >60 [facility] Comment on above: Non- GFR Calc Thyroid Stimulating Hormone (TSH) 1.66 uIU/mL 0.358-3.74 [facility] Platelets bldOrdered By: Silvia Kwan on 09-15-2022 Platelets (Bld) [#/Vol] 324 10*3/uL 150-450 [facility] Protein Test strip Ql (U)Ord ered By: Basilia Kwan on 09-15-2022 Protein Ql (U) Negative Negative [facility] Serum or plasma albumin yordy urement (mass/volume)Ordered By: Basilia Kwan on 09-15-2022 Albumin [Mass/Vol] 3.4 g/dL 3.2-5.0 [facility] Serum or plasma albumin/glob ulin mass ratioOrdered By: Basilia Kwan on 09-15-2022 Albumin/Globulin [Mass ratio] 1.1 {ratio} 0.9-2.4 [facility] Serum or plasma calcium yordy urement (mass/volume)Ordered By: Basilia Kwan on 09-15-2022 Calcium [Mass/Vol] 8.9 mg/dL 8.5-10.1 [facility] Serum or plasma creatinine m easurement (mass/volume)Ordered By: Basilia Kwan on 09-15-2022 Creatinine [Mass/Vol] 0.62 mg/dL 0.55-1.02 [facility] Comment on above: The validity of the calculated GFR & GFRAA in patients over 70 years has not been determined. Clinical correlation is essential. Serum or plasma urea nitroge n measurement (mass/volume)Ordered By: Basilia Kwan on 09-15-2022 Urea nitrogen [Mass/Vol] 19 mg/dL 7-18 [facility] Thin prep Papanicolaou smear with manual screeningOrdered By: Basilia Kwan on 09-15-2022 Thin prep Papanicolaou smear with manual screening 21 U/L 15-37 [facility] Thin prep Papanicolaou smear with manual screening 4 5-15 [facility] Urine blood detectionOrdered By: Basilia Kwan on 09-15-2022 RBC Ql (U) Negative Negative [facility] Urine clarityOrdered By: Silvia Kwan on 09-15-2022 Clarity (U) Clear Clear [facility] Urine color determinationOrd ered By: Basilia Kwan on 09-15-2022 Color (U) Yellow Yellow [facility] Urine glucose detectionOrder ed By: Basilia Kwan on 09-15-2022 Glucose Ql (U) Normal mg/dl Normal [facility] Urine leukocyte esterase det ection by dipstickOrdered By: Basilia Kwan on 09-15-2022 Leukocyte esterase Test strip Ql (U) 25 /ul Negative [facility] Urine pHOrdered By: Basilia Kwan on 09-15-2022 pH (U) 7.0 [pH] 5.0 - 8.0 [facility] Urine specific gravity measu rementOrdered By: Basilia Kwan on 09-15-2022 Specific gravity (U) [Rel density] 1.010 1.002-1.030 [facility] Urobilinogen Auto test strip Ql (U)Ordered By: Basilia Kwan on 09-15-2022 Urobilinogen Ql (U) Normal mg/dl Normal [facility] Anaerobic cultureOrdered By: Dr. Maxwell on 08-18-2022 Bacteria identified Anaer cx Nom (Unsp spec) No anaerobic bacteria isolated. [facility] No Panel InformationOrdered By: Dr. Maxwell on 08-17-2022 Eye Culture Meth. resistant Staph. aureus [facility] Gram stain for investigation of transfusion reactionOrdered By: Dr. Maxwell on 08-16-2022 Microscopic observation Gram stain Nom (Unsp spec) [facility] No Panel InformationOrdered By: Dr. Maxwell on 08-15-2022 Methicillin-Resist S.aureus DNA PCR Positive Negative [facility] Staphylococcus aureus DNA de tection by probe and target amplification methodOrdered By: Dr. Maxwell on 08-15-2022 S. aureus DNA VICTOR HUGO+probe Ql (Unsp spec) Positive Negative [facility] HPV W/GENOTYPE THIN PREPon 0 07-27-2022 HPV 16 Ag Ql (Unsp spec) Negative Normal Neg ative for HPV DNA high risk type 16 by PCR [facility] Comment on above: Order Comment: Speci men Type: FLUID SPECIMEN Ordering Facility: [facility] Address: [address] [place] [address] Performed By: #### H PVHRT #### [facility] CLIA [id number] [address] [place] [address] [place] HPV 18 Ag Ql (Unsp spec) Negative Normal Neg ative for HPV DNA high risk type 18 by PCR [facility] Comment on above: Order Comment: Speci men Type: FLUID SPECIMEN Ordering Facility: [facility] Address: [address] [place] [address] Performed By: #### H PVHRT #### [facility] CLIA [id number] [address] [place] [address] [place] HPV 31+33+35+39+45+51+52+56+ 58+59+66+68 DNA VICTOR HUGO+probe Ql (Cvx) Negative for HPV DNA high risk types: 31,33,35,39,45,51,52, 56,58,59,66,68 by PCR. Normal Negative for HPV DNA high risk types: 31,33,35,39, 45,51,52,56, 58,59,66,68 by PCR. [facility] Comment on above: Order Comment: Speci men Type: FLUID SPECIMEN Ordering Facility: [facility] Address: [address] [place] [address] Performed By: #### H PVHRT #### [facility] CLIA [id number] [address] [place] [address] [place] PAP FLUID CERVICAL SCREENING on 07-27-2022 CASE REPORT Normal [facility] Comment on above: Order Comment: Speci men Type: FLUID SPECIMEN Ordering Facility: [facility] Address: [address] [place] [address] Result Comment: Gyne cologic Cytology Report Case: [id number] Authorizing Provider: Crystal Mao CNP Collected: 07/27/2022 04:40 PM Ordering Location: [facility] Received: 07/31/2022 03:18 PM First Screen: Abby Miguel, CT, ASCP Pathologist: Lesly Butler MD Specimen: Pap, Telehealth Nurse Educator, Screening, CERVICAL SCREENING FLUID Performed By: #### L [id number] #### [facility] CLIA [id number] [address] [place] [address] [place] CLINICAL HISTORY ROUTINE EXAM Normal [facility] Comment on above: Order Comment: Speci men Type: FLUID SPECIMEN Ordering Facility: [facility] Address: [address] [place] [address] Result Comment: Abno rmal Bleeding, Spotting Performed By: #### L [id number] #### [facility] CLIA [id number] [address] [place] [address] [place] CYTOLOGY INTERPRETATION PAP Normal [facility] Comment on above: Order Comment: Speci men Type: FLUID SPECIMEN Ordering Facility: [facility] Address: [address] [place] [address] Result Comment: Nega tive for Intraepithelial lesion or malignancy. Performed By: #### L [id number] #### [facility] CLIA [id number] [address] [place] [address] [place] FINAL DIAGNOSIS Normal [facility] Comment on above: Order Comment: Speci men Type: FLUID SPECIMEN Ordering Facility: [facility] Address: [address] [place] [address] Result Comment: A - CERVICAL SCREENING FLUID Satisfactory for interpretation Negative for Intraepithelial lesion or malignancy. Performed By: #### L [id number] #### [facility] CLIA [id number] [address] [place] [id number] [place] FINAL PERFORMING LAB Normal [facility] Comment on above: Order Comment: Speci men Type: FLUID SPECIMEN Ordering Facility: [facility] Address: [address] [place] [address], [place] [id number] Result Comment: Tech nical component, web production artist screening performed at [facility], [facility] [address] CLIA# [id number] Diagnostic interpretation performed at [facility], [address] [place] [address] CLIA# [id number] Plastic Sewer: David Tom M.D. Performed By: #### L [id number] #### [facility] CLIA [id number] [address] [place] [address] [place] HPV REQUESTED? Yes, automatic HPV patients over 30 Normal [facility] Comment on above: Order Comment: Speci men Type: FLUID SPECIMEN Ordering Facility: [facility] Address: [address] [place] [address], [place] [address] Performed By: #### L [id number] #### [facility] CLIA [id number] [address] [place] [address] [place] LMP POSTMENOPAUSAL Normal [facility] Comment on above: Order Comment: Speci men Type: FLUID SPECIMEN Ordering Facility: [facility] Address: [address] [place] [address], [place] [id number] Result Comment: ABNO RMAL BLEEDING SPOTTING Performed By: #### L [id number] #### [facility] CLIA [id number] [address] [place] [address] [place] PAP DISCLAIMER COMMENT The Pap Smear is a screening test for cervical cancer. False negative results occur with all screening tests, emphasizing the need for rescreening at recommended intervals, and clinical correlation. Normal [facility] Comment on above: Order Comment: Speci men Type: FLUID SPECIMEN Ordering Facility: [facility] Address: [address] [place] [address], [place] [address] Performed By: #### L [id number] #### [facility] CLIA [id number] [address] [place] [address] [place] PAP JOURNEYMAN MOLDER COMMENT This specimen has been analyzed by the ThinPrep Imaging System, an automated imaging and review system, which assists the laboratory in evaluating cells on ThinPrep Pap tests. Following automated imaging, selected mcdaniel from every slide are reviewed by a web production artist. Normal [facility] Comment on above: Order Comment: Speci men Type: FLUID SPECIMEN Ordering Facility: [facility] Address: [address] [facility], [place] [address] Performed By: #### L [id number] #### [facility] CLIA [id number] [address] [place] [address] [place] Alternaria alternata IgE ser umOrdered By: Dr. Barrera on 07-02-2022 A. alternata IgE Qn (S) 0.27 kU/L Class 0/I [facility] No Panel InformationOrdered By: Dr. Barrera on 07-02-2022 Cat Hair Allergen <0.10 kU/L Class 0 [facility] Common Ragweed (Short) Allergen <0.10 kU/L Class 0 [facility] Immunoglobulin E 1407 IU/mL 6-495 [facility] Comment on above: Performed at: [facility] [id number] Director: Tram aPntoja MD, Phone: [phone] Maple ([place]) Allergen IgE Ab <0.10 kU/L Class 0 [facility] Mouse Urine Allergen IgE Antibody <0.10 kU/L Class 0 [facility] Comment on above: Performed at: [email or web address] [place], [place] [id number] Director: Tram Pantoja MD, Phone: [phone] RAST Comment Comment . [facility] Comment on above: Levels of Specific I gE Class Description of Class ----- < 0.10 0 Negative 0.10 - 0.31 0/I Equivocal/Low 0.32 - 0.55 I Low 0.56 - 1.40 II Moderate 1.41 - 3.90 III High 3.91 - 19.00 IV Very High 19.01 - 100.00 V Very High >100.00 Very High [place] Tree Allergen <0.10 kU/L Class 0 [facility] Rough pigweed specific IgE a ntibody assayOrdered By: Dr. Barrera on 07-02-2022 Rough Pigweed IgE Qn (S) <0.10 kU/L Class [address] [facility] Serum Slovenian sycamore IgE antibody assay (units/volume)Ordered By: Dr. Barrera on 07-02-2022 Slovenian Eden IgE Qn (S) <0.10 kU/L Class 0 [facility] Serum Aspergillus fumigatus IgE antibody assay (units/volume)Ordered By: Dr. Barrera on 07-02-2022 A. fumigatus IgE Qn (S) <0.10 kU/L [facility] Serum Bermuda grass IgE anti body assay (units/volume)Ordered By: Dr. Barrera on 07-02-2022 Bermuda grass IgE Qn (S) <0.10 kU/L Class 0 [facility] Serum Cladosporium herbarum IgE antibody assay (units/volume)Ordered By: Dr. Barrera on 07-02-2022 C. herbarum IgE Qn (S) <0.10 kU/L Class 0 [facility] Serum Dermatophagoides farin ae specific IgE antibody assay (units/volume)Ordered By: Dr. Barrera on 07-02-2022 Slovenian house dust mite IgE Qn (S) 0.15 kU/L Class 0/I [facility] Serum house dust mi te IgE antibody assay (units/volume)Ordered By: Dr. Barrera on 07-02-2022 house dust mite IgE Qn (S) 0.16 kU/L Class 0/I [facility] Serum Penicillium notatum Ig E antibody assay (units/volume)Ordered By: Dr. Barrera on 07-02-2022 P. notatum IgE Qn (S) <0.10 kU/L Class 0 [facility] Serum Periplaneta americana IgE antibody assay (units/volume)Ordered By: Dr. Barrera on 07-02-2022 Slovenian Cockroach IgE Qn (S) 0.14 kU/L Class 0/I [facility] Serum Cook Islander thistle specif ic IgE antibody assayOrdered By: Dr. Barrera on 07-02-2022 Saltwort IgE Qn (S) <0.10 kU/L Class 0 [facility] Serum birch specific IgE ant ibody assayOrdered By: Dr. Barrera on 07-02-2022 Silver Birch IgE Qn (S) <0.10 kU/L Class 0 [facility] Serum black walnut IgE antib brennan assay (units/volume)Ordered By: Dr. Barrera on 07-02-2022 Black [place] IgE Qn (S) <0.10 kU/L Class 0 [facility] Serum cottonwood IgE antibod y assay (units/volume)Ordered By: Dr. Barrera on 07-02-2022 Appanoose IgE Qn (S) <0.10 kU/L Class 0 [facility] Serum dog epithelium IgE ant ibody assay (units/volume)Ordered By: Dr. Barrera on 07-02-2022 Dog epithelium IgE Qn (S) <0.10 kU/L Class 0 [facility] Serum mountain cedar specifi c IgE antibody assayOrdered By: Dr. Barrera on 07-02-2022 Mountain Juniper IgE Qn (S) <0.10 kU/L Class 0 [facility] Serum pecan or hickory nut I gE antibody assay (units/volume)Ordered By: Dr. Barrera on 07-02-2022 Pecan or Yolo Nut IgE Qn (S) <0.10 kU/L Class 0 [facility] Serum sheep sorrel IgE antib brennan assay (units/volume)Ordered By: Dr. Barrera on 07-02-2022 Sheep Boyden IgE Qn (S) <0.10 kU/L Class 0 [facility] Serum wilmer IgE antibody a ssay (units/volume)Ordered By: Dr. Barrera on 07-02-2022 Wilmer IgE Qn (S) <0.10 kU/L Class 0 [facility] Serum white sherly IgE antibody assay (units/volume)Ordered By: Dr. Barrera on 07-02-2022 White Sherly IgE Qn (S) <0.10 kU/L Class 0 [facility] Serum white elm IgE antibody assay (units/volume)Ordered By: Dr. Barrera on 07-02-2022 White Elm IgE Qn (S) <0.10 kU/L Class 0 [facility] Serum white mulberry IgE ant ibody assay (units/volume)Ordered By: Dr. Barrera on 07-02-2022 White mulberry IgE Qn (S) <0.10 kU/L Class 0 [facility] Basophil percentageOrdered B y: Basilia Kwan on 06-30-2022 Chloride [Moles/Vol] 105 mmol/L 98-107 [facility] Glucose [Mass/Vol] 113 mg/dL 74-106 [facility] Comment on above: Fasting Glucose resu lt from 100 to 125 mg/dL suggests IMPAIRED HOMEOSTASIS per A.D.A. criteria. Potassium [Moles/Vol] 4.0 mmol/L 3.5-5.1 [facility] Sodium [Moles/Vol] 140 mmol/L 136-145 [facility] Laboratory - Chemistry and C hemistry - challengeOrdered By: Basilia Kwan on 06-30-2022 CO2 [Moles/Vol] 27.0 mmol/L 21.0-32.0 [facility] Urea nitrogen/Creatinine [Mass ratio] 23.2 mg/mg 10-20 [facility] No Panel InformationOrdered By: Basilia Kwan on 06-30-2022 Estimated GFR (MDRD) Amer 120 mL/min >60 [facility] Comment on above: GFR Calc Estimated GFR (MDRD) Non-Af Amer 99 mL/min >60 [facility] Comment on above: Non- GFR Calc Serum or plasma calcium yordy urement (mass/volume)Ordered By: Basilia Kwan on 06-30-2022 Calcium [Mass/Vol] 8.9 mg/dL 8.5-10.1 [facility] Serum or plasma creatinine m easurement (mass/volume)Ordered By: Basilia Kwan on 06-30-2022 Creatinine [Mass/Vol] 0.65 mg/dL 0.55-1.02 [facility] Comment on above: The validity of the calculated GFR & GFRAA in patients over 70 years has not been determined. Clinical correlation is essential. Serum or plasma urea nitroge n measurement (mass/volume)Ordered By: Basilia Kwan on 06-30-2022 Urea nitrogen [Mass/Vol] 15 mg/dL 7-18 [facility] Thin prep Papanicolaou smear with manual screeningOrdered By: Basilia Kwan on 06-30-2022 Thin prep Papanicolaou smear with manual screening 8 5-15 [facility] Basophil percentageOrdered B y: Basilia Kwan on 06-02-2022 Bilirubin [Mass/Vol] 0.40 mg/dL 0.20-1.00 [facility] Comment on above: For patients on eltr ombopag therapy, use of Dimension [place] TBIL is not recommended. Chloride [Moles/Vol] 101 mmol/L 98-107 [facility] Cholesterol [Mass/Vol] 118 mg/dL <200 [facility] Comment on above: <200 mg/dL Desirable 200-240 mg/dL Borderline >240 mg/dL High Risk Glucose [Mass/Vol] 97 mg/dL 74-106 [facility] Potassium [Moles/Vol] 3.8 mmol/L 3.5-5.1 [facility] Protein [Mass/Vol] 6.9 g/dL 6.4-8.2 [facility] Sodium [Moles/Vol] 138 mmol/L 136-145 [facility] Triglyceride [Mass/Vol] 97 mg/dL <199 [facility] Comment on above: The drugs N-Acetylcy steine and Metamizole may falsely depress this assay.Serum Triglycerides Reference Interval Normal <150 mg/dL Borderline high 150 - 199 mg/dL High 200 - 499 mg/dL Very High > or = 500 mg/dL WBC (Bld) [#/Vol] 12.6 10*3/uL 4.4-11.0 [facility] Blood erythrocytes count (nu mber/volume)Ordered By: Basilia Kwan on 06-02-2022 RBC (Bld) [#/Vol] 4.72 10*6/uL 4.2-5.4 [facility] Blood hemoglobin measurement (mass/volume)Ordered By: Basilia Kwan on 06-02-2022 Hemoglobin (Bld) [Mass/Vol] 13.1 g/dL 12.0-15.0 [facility] Blood platelet mean volumeOr dered By: Basilia Kwan on 06-02-2022 Platelet mean volume (Bld) [Entitic vol] 9.1 fL 6.2-12.0 [facility] Determination of erythrocyte mean corpuscular volume (MCV)Ordered By: Basilia Kwan on 06-02-2022 MCV (RBC) [Entitic vol] 87.3 fL 81-99 [facility] Hematocrit Auto (Bld) [Volum e fraction]Ordered By: Basilia Kwan on 06-02-2022 Hematocrit (Bld) [Volume fraction] 41.2 % 37-47 [facility] Laboratory - Chemistry and C hemistry - challengeOrdered By: Basilia Kwan on 06-02-2022 ALP [Catalytic activity/Vol] 58 U/L 45-117 [facility] ALT [Catalytic activity/Vol] 28 U/L 13-56 [facility] CO2 [Moles/Vol] 28.0 mmol/L 21.0-32.0 [facility] Globulin (S) [Mass/Vol] 3.3 g/dL 2.2-4.2 [facility] Natriuretic peptide B (Bld) [Mass/Vol] 19.8 pg/mL 0-100 [facility] Urea nitrogen/Creatinine [Mass ratio] 20.0 mg/mg 10-20 [facility] Laboratory - Hematology and Cell countsOrdered By: Basilia Kwan on 06-02-2022 Erythrocyte distribution width (RBC) [Entitic vol] 45.8 fL 35.1-43.9 [facility] Erythrocyte distribution width (RBC) [Ratio] 14.4 % 11.6-14.6 [facility] MCH (RBC) [Entitic mass] 27.8 pg 27.0-32.0 [facility] MCHC Auto (RBC) [Mass/Vol]Or dered By: Basilia Kwan on 06-02-2022 MCHC (RBC) [Mass/Vol] 31.8 g/dL 32-36 [facility] No Panel InformationOrdered By: Basilia Kwan on 06-02-2022 Estimated GFR (MDRD) Amer 109 mL/min >60 [facility] Comment on above: GFR Calc Estimated GFR (MDRD) Non-Af Amer 90 mL/min >60 [facility] Comment on above: Non- GFR Calc Platelets bldOrdered By: Silvia Kwan on 06-02-2022 Platelets (Bld) [#/Vol] 399 10*3/uL 150-450 [facility] Serum or plasma albumin yordy urement (mass/volume)Ordered By: Basilia Kwan on 06-02-2022 Albumin [Mass/Vol] 3.6 g/dL 3.2-5.0 [facility] Serum or plasma albumin/glob ulin mass ratioOrdered By: Basilia Kwan on 06-02-2022 Albumin/Globulin [Mass ratio] 1.1 {ratio} 0.9-2.4 [facility] Serum or plasma calcium yordy urement (mass/volume)Ordered By: Basilia Kwan on 06-02-2022 Calcium [Mass/Vol] 9.2 mg/dL 8.5-10.1 [facility] Serum or plasma cholesterol in HDL measurement (mass/volume)Ordered By: Basilia Kwan on 06-02-2022 Cholesterol in HDL [Mass/Vol] 70 mg/dL >40 [facility] Comment on above: The drugs N-Acetylcy steine and Metamizole may falsely depress this assay. Reference Range HDL <40 mg/dL Low HDL Cholesterol HDL >or= 60 mg/dL High HDL Cholesterol Serum or plasma cholesterol in VLDL measurement (mass/volume)Ordered By: Basilia Kwan on 06-02-2022 Cholesterol in VLDL [Mass/Vol] 19 mg/dL 5-40 [facility] Serum or plasma creatinine m easurement (mass/volume)Ordered By: Basilia Kwan on 06-02-2022 Creatinine [Mass/Vol] 0.70 mg/dL 0.55-1.02 [facility] Comment on above: The validity of the calculated GFR & GFRAA in patients over 70 years has not been determined. Clinical correlation is essential. Serum or plasma low density lipoprotein (LDL) cholesterol measurement (mass/volume)Ordered By: Basilia Kwan on 06-02-2022 Cholesterol in LDL [Mass/Vol] 29 mg/dL 0-130 [facility] Serum or plasma urea nitroge n measurement (mass/volume)Ordered By: Basilia Kwan on 06-02-2022 Urea nitrogen [Mass/Vol] 14 mg/dL 7-18 [facility] Thin prep Papanicolaou smear with manual screeningOrdered By: Basilia Kwan on 06-02-2022 Thin prep Papanicolaou smear with manual screening 12 U/L 15-37 [facility] Thin prep Papanicolaou smear with manual screening 9 5-15 [facility] Whole blood hemoglobin A1c/t otal hemoglobin ratio (mass fraction)Ordered By: Basilia Kwan on 06-02-2022 HbA1c (Bld) [Mass fraction] 6.9 % 3.8-5.6 [facility] Comment on above: Normal < 5.7 % Predi abetic 5.7 - 6.4 % Diabetic >or= 6.5 % Please note range changes. Sinus Cult and Smearon 04-28 Sinus Cult and Smear Specimen Desc: SINUS Sp. Request/Comment: SWB Smear Result No organisms seen Culture Result Moderate Methicillin resistant Staphylococcus aureus(*) Report Status [id number] FINAL Organism: Method: IC ANTIBIOTIC INTERPRETATION [place] STATUS Erythromycin R F Clindamycin S F Tetracycline S F Vancomycin S F Oxacillin R F Trimeth sulfameth S F Gentamicin S F Rifampin S F Daptomycin S F Linezolid S F Doxycycline S F Normal [facility] .Urinalysis Microscopic (AO) on 01-05-2020 RBC (U) [#/Vol] None Seen Normal None Seen [facility] ([place]) Comment on above: Performed By: #### U EDWARD GAGE #### [address] [place], [place] [address] UA Squam Epithelial 0-5 Abnormal None Seen [facility] ([place]) Comment on above: Performed By: #### U EDWARD GAGE #### [address] [place], [place] [address] UA WBC 0-5 Abnormal None Seen [facility] ([place]) Comment on above: Performed By: #### U EDWARD GAGE #### [facility] [address] [place], [place] [address] CT ABDOMEN/PELVIS W/O CONTRA Eliane 01-05-2020 CT ABDOMEN/PELVIS W/O CONTRAST ORIGINAL CT ABDOMEN/PELVIS W/O CONTRAST CLINICAL STATEMENT: BILATERAL flank, LEFT flank pain COMPARISON: None TECHNIQUE: Axial images were obtained from the lung bases through the pubic symphysis. Coronal reformatted images were generated from the axial dataset. This exam was performed according to our departmental dose optimization program, and includes the following measures where applicable: automated exposure control, adjustment of the mAs and/or kVp according to patient size and/or exam, and an iterative reconstruction algorithm. FINDINGS: The LEFT kidney is mildly edematous and enlarged. At the distal LEFT renal pelvis, there is a 7 mm obstructing ureteral calculus with moderate LEFT hydroureteronephrosis . Mild periureteral stranding. The RIGHT kidney is normal in size without hydronephrosis or ureteral calculus. The urinary bladder is adequately distended without wall thickening. No additional renal nephroliths are noted. The included lung bases are clear. There is no visible pleural effusion. The liver is diffusely hypoattenuating, compatible with hepatic steatosis. The noncontrasted spleen, adrenal glands, gallbladder and pancreas are within normal limits. The visualized esophagus and stomach are within normal limits. There is no small bowel or colonic dilatation or wall thickening. There are a few scattered colonic diverticula, without CT evidence of diverticulitis. The appendix is normal. No free intraperitoneal fluid or air is identified. The aorta is normal in caliber. There is no lymphadenopathy. Tubal ligation clips are seen. The uterus and adnexa are within physiologic limits. There are mild multilevel degenerative changes of the spine. There is LEFT L5 pars defect. There is no visible acute fracture or aggressive osseous lesion. IMPRESSION: LEFT proximal 7 mm ureteral calculus with resultant mild to moderate hydroureteronephrosis . Additional incidental findings as above. I have personally reviewed the images of this examination and agree with the resident's findings and interpretation. Interpreted By: Simon Peterson MD Preliminary Report By: Wes Funes DO Electronically Signed By: Simon Peterson MD Dictated Date: 01/05/2020 9:27:12 PM Prelim Date: 01/05/2020 9:31:35 PM Sign Date: 01/05/2020 9:42:00 PM Ordering Provider:Wilmer Granados Normal [facility] ([place]) Le[place] 01-05-2020 Color (U) Yellow Normal [facility] ([place]) Comment on above: Performed By: #### U AMICAO, UA #### [address] [address] Glucose (U) [Mass/Vol] 500 mg/dL Abnormal Negative [facility] ([place]) Comment on above: Performed By: #### U AMICAO, UA #### [place] [address] [address] Ketones Ql (U) Negative Normal Negative [facility] ([place]) Comment on above: Performed By: #### U AMICAO, UA #### [place] [address] UA Appear Clear Normal Clear [facility] ([place]) Comment on above: Performed By: #### U AMICAO, UA #### [address] [address] UA Blood Trace Abnormal Negative [facility] ([place]) Comment on above: Performed By: #### U AMICAO, UA #### [place] [address] [address] UA Leuk Est Trace Abnormal Negative [facility] ([place]) Comment on above: Performed By: #### U AMICAO, UA #### [place] [address] [address] UA Nitrite Negative Normal Negative [facility] ([place]) Comment on above: Performed By: #### U AMICAO, UA #### [address] [address] UA pH 6.5 Normal 5.0 - 8.0 [facility] ([place]) Comment on above: Performed By: #### U AMICAO, UA #### [place] [id number] UA Protein Negative Normal Negative [facility] ([place]) Comment on above: Performed By: #### U AMICAO, UA #### [address] [address] UA Spec Grav 1.015 Normal 1.015-1.025 [facility] ([place]) Comment on above: Performed By: #### U AMICAO, UA #### [address] [address] UA Specimen Type Clean Catch Normal [facility] ([place]) Comment on above: Performed By: #### U AMICAO, UA #### [address] [address] UA Urobilinogen 0.2 E.U./dL Normal 0.2-1.0 [facility] ([place]) Comment on above: Performed By: #### U AMICAO, UA #### [place] [id number] Urobilinogen Qn (U) Negative Normal Negative [facility] ([place]) Comment on above: Performed By: #### U AMICAO, UA #### [address] [address] Vital Signs Date Time Vital Sign Value Performing Clinician Morteza calvert 07-05-2023 11:04-0500 Body temperature 97.9 [degF] Scot Chenug APRN.APPLICATION SECURITY DEVELOPER Work Phone: [facility] 07-05-2023 11:04-0500 Body weight 100.25 kg Scot Cheung APRN.APPLICATION SECURITY DEVELOPER Work Phone: [facility] 07-05-2023 11:04-0500 Diastolic blood pressure 74 mm[Hg] Scot Cheung APRN.APPLICATION SECURITY DEVELOPER Work Phone: [facility] 07-05-2023 11:04-0500 Heart rate 86 /min Scot Cheung APRN.APPLICATION SECURITY DEVELOPER Work Phone: [facility] 07-05-2023 11:04-0500 Respiratory rate 20 /min Scot Cheung APRN.APPLICATION SECURITY DEVELOPER Work Phone: [facility] 07-05-2023 11:04-0500 SaO2% (BldA) [Mass fraction] 97 % Scot King FAROOQ.APPLICATION SECURITY DEVELOPER Work Phone: [facility] 07-05-2023 11:04-0500 Systolic blood pressure 132 mm[Hg] Scot King FAROOQ.APPLICATION SECURITY DEVELOPER Work Phone: [facility] 04-25-2023 09:14-0500 Body height 164.47 cm HEARING SCREEN COORDINATOR-C Basilia Kwan HEARING SCREEN COORDINATOR Work Phone: 9(278)557-639919 [place] [address] 04-25-2023 09:14-0500 Body mass index (BMI) [Ratio] 37.3 kg/m2 HEARING SCREEN COORDINATOR-C Basilia Kwan HEARING SCREEN COORDINATOR Work Phone: 7(954)966-673239 [place] [address] 04-25-2023 09:14-0500 Body temperature 98.2 [degF] HEARING SCREEN COORDINATOR-Rolando Kwan HEARING SCREEN COORDINATOR Work Phone: 5(024)105-523382 [address] 04-25-2023 09:14-0500 Body weight 101.15 kg HEARING SCREEN COORDINATOR-Rolnado Kwan HEARING SCREEN COORDINATOR Work Phone: 7(037)917-451919 [place] [address] 04-25-2023 09:14-0500 Diastolic blood pressure 72 mm[Hg] HEARING SCREEN COORDINATOR-Rolando Kwan HEARING SCREEN COORDINATOR Work Phone: 9(511)808-742282 [address] 04-25-2023 09:14-0500 Heart rate 94 /min HEARING SCREEN COORDINATOR-Rolando Kwan HEARING SCREEN COORDINATOR Work Phone: 9(081)826-927382 [address] 04-25-2023 09:14-0500 SaO2% (BldA) [Mass fraction] 92 % HEARING SCREEN COORDINATOR-Rolando Kwan HEARING SCREEN COORDINATOR Work Phone: 1(587)877-516082 [address] 04-25-2023 09:14-0500 Systolic blood pressure 128 mm[Hg] RAMIREZ-Rolando Kwan HEARING SCREEN COORDINATOR Work Phone: 9(253)211-189982 [address] 02-14-2023 13:18-0400 Body height 164.47 cm [facility] Work Phone: 9(898)931-185782 [address] 02-14-2023 13:18-0400 Body mass index (BMI) [Ratio] 39.7 kg/m2 [facility] Work Phone: 7(546)225-968839 [place] [address] 02-14-2023 13:18-0400 Body temperature 98.2 [degF] [facility] Work Phone: 3(131)292-756339 [place] [address] 02-14-2023 13:18-0400 Body weight 107.61 kg [facility] Work Phone: 0(914)488-861039 [place] [address] 02-14-2023 13:18-0400 Diastolic blood pressure 78 mm[Hg] [facility] Work Phone: 7(881)374-287939 [place] [address] 02-14-2023 13:18-0400 Heart rate 70 /min [facility] Work Phone: 2(222)973-282839 [place] [address] 02-14-2023 13:18-0400 Respiratory rate 16 /min [facility] Work Phone: 3(061)743-456839 [place] [address] 02-14-2023 13:18-0400 SaO2% (BldA) [Mass fraction] 96 % [facility] Work Phone: 4(443)908-066539 [place] [address] 02-14-2023 13:18-0400 Systolic blood pressure 134 mm[Hg] [facility] Work Phone: 1(628)861-211939 [place] [address] 10-31-2022 14:56-0400 Body height 164.47 cm [facility] Work Phone: 6(965)696-501839 [place] [address] 10-31-2022 14:45-0400 Body mass index (BMI) [Ratio] 40.4 kg/m2 [facility] Work Phone: 6(225)385-476539 [place] [address] 10-31-2022 14:45-0400 Body weight 109.31 kg [facility] Work Phone: 4(150)560-232139 [place] [address] 10-31-2022 14:45-0400 Diastolic blood pressure 67 mm[Hg] [facility] Work Phone: 0(438)568-820739 [place] [address] 10-31-2022 14:45-0400 Heart rate 87 /min [facility] Work Phone: 0(089)424-337439 [place] [address] 10-31-2022 14:45-0400 Respiratory rate 18 /min [facility] Work Phone: 4(247)294-599039 [place] [address] 10-31-2022 14:45-0400 SaO2% (BldA) [Mass fraction] 97 % [facility] Work Phone: 6(213)632-600639 [place] [address] 10-31-2022 14:45-0400 Systolic blood pressure 137 mm[Hg] [facility] Work Phone: 4(251)146-400539 [place] [address] 10-01-2022 08:35-0400 Body temperature 97.6 [degF] [facility] Work Phone: 3(397)075-564139 [place] [address] 10-01-2022 08:35-0400 Diastolic blood pressure 73 mm[Hg] [facility] Work Phone: 8(928)395-614339 [place] [address] 10-01-2022 08:35-0400 Heart rate 75 /min [facility] Work Phone: 9(927)113-819239 [place] [address] 10-01-2022 08:35-0400 Respiratory rate 16 /min [facility] Work Phone: 0(561)149-007239 [place] [address] 10-01-2022 08:35-0400 SaO2% (BldA) [Mass fraction] 95 % [facility] Work Phone: 3(068)759-655939 [place] [address] 10-01-2022 08:35-0400 Systolic blood pressure 126 mm[Hg] [facility] Work Phone: 3(886)821-994939 [place] [address] 10-01-2022 07:05-0400 Body height 164.47 cm [facility] Work Phone: 3(893)256-249839 [place] [address] 10-01-2022 07:05-0400 Body mass index (BMI) [Ratio] 39.4 kg/m2 [facility] Work Phone: 8(606)699-748939 [place] [address] 10-01-2022 07:05-0400 Body weight 106.77 kg [facility] Work Phone: 7(395)241-400839 [place] [address] 08-16-2022 14:40-0400 Body height 162.56 cm [facility] Work Phone: 2(859)276-832539 [place] [address] 08-16-2022 14:40-0400 Body mass index (BMI) [Ratio] 41.8 kg/m2 [facility] Work Phone: 8(516)757-662639 [place] [address] 08-16-2022 14:40-0400 Body weight 110.67 kg [facility] Work Phone: 3(396)244-278939 [place] [address] 08-16-2022 14:40-0400 Diastolic blood pressure 79 mm[Hg] [facility] Work Phone: 7(311)199-537139 [place] [address] 08-16-2022 14:40-0400 Heart rate 78 /min [facility] Work Phone: 5(889)517-674939 [place] [address] 08-16-2022 14:40-0400 Respiratory rate 17 /min [facility] Work Phone: 1(289)524-950839 [place] [address] 08-16-2022 14:40-0400 SaO2% (BldA) [Mass fraction] 95 % [facility] Work Phone: 9(492)801-542339 [place] [address] 08-16-2022 14:40-0400 Systolic blood pressure 137 mm[Hg] [facility] Work Phone: 4(967)594-579439 [place] [address] 08-02-2022 14:04-0400 Body height 163.83 cm [facility] Work Phone: 4(452)463-859739 [place] [address] 08-02-2022 13:58-0400 Body mass index (BMI) [Ratio] 39.1 kg/m2 [facility] Work Phone: 1(290)447-336739 [place] [address] 08-02-2022 13:58-0400 Body temperature 97.6 [degF] [facility] Work Phone: 6(026)383-356139 [place] [address] 08-02-2022 13:58-0400 Body weight 106.59 kg [facility] Work Phone: 4(049)277-859539 [place] [address] 08-02-2022 13:58-0400 Diastolic blood pressure 75 mm[Hg] [facility] Work Phone: 1(744)321-629139 [place] [address] 08-02-2022 13:58-0400 Heart rate 94 /min [facility] Work Phone: 8(129)596-571539 [place] [address] 08-02-2022 13:58-0400 Respiratory rate 18 /min [facility] Work Phone: 4(012)898-847539 [place] [address] 08-02-2022 13:58-0400 SaO2% (BldA) [Mass fraction] 95 % [facility] Work Phone: 2(638)882-611439 [place] [address] 08-02-2022 13:58-0400 Systolic blood pressure 150 mm[Hg] [facility] Work Phone: 6(236)558-309539 [place] [address] 07-02-2022 10:10-0500 Body height 163.83 cm [facility] Work Phone: 7(824)503-552239 [place] [address] 07-02-2022 10:05-0500 Body mass index (BMI) [Ratio] 41.6 kg/m2 [facility] Work Phone: 8(329)793-500139 [place] [address] 07-02-2022 10:05-0500 Body temperature 97.8 [degF] [facility] Work Phone: 5(665)418-839639 [place] [address] 07-02-2022 10:05-0500 Body weight 106.59 kg [facility] Work Phone: 5(761)538-032239 [place] [address] 07-02-2022 10:05-0500 Diastolic blood pressure 73 mm[Hg] [facility] Work Phone: 9(959)798-097039 [place] [address] 07-02-2022 10:05-0500 Heart rate 96 /min [facility] Work Phone: 2(340)702-793739 [place] [address] 07-02-2022 10:05-0500 Respiratory rate 18 /min [facility] Work Phone: 4(800)994-885039 [place] [address] 07-02-2022 10:05-0500 SaO2% (BldA) [Mass fraction] 98 % [facility] Work Phone: 5(272)837-689739 [place] [address] 07-02-2022 10:05-0500 Systolic blood pressure 121 mm[Hg] [facility] Work Phone: 4(822)327-647039 [place] [address] 02-05-2022 17:00-0400 Diastolic blood pressure 72 mm[Hg] Ivory Lemon PT [facility] 02-05-2022 17:00-0400 Systolic blood pressure 132 mm[Hg] Ivory Lemon PT [facility] 12-25-2021 16:10-0400 Body temperature 98.4 [degF] Tiffany Octavio CREDIT RISK ANALYTICS MANAGER.APPLICATION SECURITY DEVELOPER Work Phone: [facility] 12-25-2021 16:10-0400 Body weight 105.6 kg Tiffany Octavio CREDIT RISK ANALYTICS MANAGER.APPLICATION SECURITY DEVELOPER Work Phone: [facility] 12-25-2021 16:10-0400 Diastolic blood pressure 72 mm[Hg] Tiffany Octavio CREDIT RISK ANALYTICS MANAGER.APPLICATION SECURITY DEVELOPER Work Phone: [facility] 12-25-2021 16:10-0400 Heart rate 90 /min Tiffany Octavio CREDIT RISK ANALYTICS MANAGER.APPLICATION SECURITY DEVELOPER Work Phone: [facility] 12-25-2021 16:10-0400 Respiratory rate 21 /min Tiffany Octavio CREDIT RISK ANALYTICS MANAGER.APPLICATION SECURITY DEVELOPER Work Phone: [facility] 12-25-2021 16:10-0400 SaO2% (BldA) [Mass fraction] 98 % Tiffany Octavio CREDIT RISK ANALYTICS MANAGER.APPLICATION SECURITY DEVELOPER Work Phone: [facility] 12-25-2021 16:10-0400 Systolic blood pressure 130 mm[Hg] Tiffany Octavio CREDIT RISK ANALYTICS MANAGER.APPLICATION SECURITY DEVELOPER Work Phone: [facility] Encounters Encounter Date Encounter Type Care Provider Facility Start: 02-01-[address] [facility] Facility :[facility] Start: 10-05-2024 ambulatory Basilia [place]wan [place] [place]: 05-11-2024 End: 05-11-2024 ambulatory Basilia Kwan [place] Start: 04-23-2024 ambulatory Basilia Kwan Facili ty:[facility] Start: 02-03-2024 ambulatory Alisha De León Facility :[facility] Start: 02-03-2024 End: 02-03-2024 ambulatory [place] [place]: 02-03-2024 End: 02-03-2024 ambulatory [place] Facility:[facility] Start: 07-18-2023 End: 07-18-2023 ambulatory HEARING SCREEN COORDINATOR-C Basilia Kwan HEARING SCREEN COORDINATOR Work Phone: [facility] Work Phone: Start: 07-18-2023 End: 07-18-2023 Patient encounter procedure HEARING SCREEN COORDINATOR-C Basilia Kwan HEARING SCREEN COORDINATOR Work Phone: [facility] Work Phone: Start: 07-05-2023 End: 07-05-2023 ambulatory SCOT CHEUNG Facility:[facility] Start: 07-05-2023 End: 07-05-2023 Subsequent hospital visit by physician [facility]na Work Phone: Radiology Comment on above: Acute cough [R05.1] Start: 07-05-2023 End: 07-05-2023 Patient encounter procedure Scot Cheung CREDIT RISK ANALYTICS MANAGER.APPLICATION SECURITY DEVELOPER Work Phone: [facility] Comment on above: URI, acute (Primary Dx); Acute cough; History of asthma Start: 04-25-2023 End: 04-25-2023 Patient encounter procedure HEARING SCREEN COORDINATOR-C Basilia Kwan HEARING SCREEN COORDINATOR Work Phone: [facility] Endocr[facility]ology Work Phone: Start: 02-14-2023 End: 02-14-2023 Patient encounter procedure [facility] Work Phone: [facility] Work Phone: Start: 02-13-2023 End: 02-13-2023 ambulatory [place] Work Phone: [facility] Work Phone: Start: 02-13-2023 End: 02-13-2023 Discharged Recurring [facility] Work Phone: [facility]Physical [facility] Work Phone: Start: 01-12-2023 End: 01-12-2023 ambulatory [place] Work Phone: [facility] Work Phone: Start: 01-12-2023 End: 01-12-2023 Patient encounter procedure [facility] Work Phone: [facility]Radiology, [facility] Work Phone: Start: 12-29-2022 End: 12-29-2022 ambulatory [place] Work Phone: [facility] Work Phone: Start: 12-29-2022 End: 12-29-2022 Patient encounter procedure [facility] Work Phone: [facility] Work Phone: Start: 11-10-2022 End: 11-10-2022 ambulatory [place] Work Phone: [facility] Work Phone: Start: 11-10-2022 End: 11-10-2022 Patient encounter procedure [facility] Work Phone: [facility] Start: 10-31-2022 End: 10-31-2022 Patient encounter procedure [facility] Work Phone: [facility] Medicine [facility] Start: 10-26-2022 End: 10-26-2022 Patient encounter procedure [facility] Work Phone: [facility]Labor[facility], Specimen Start: 10-01-2022 Non-patient / Non-visit [facility] Work Phone: [facility] Start: 10-01-2022 End: 10-01-2022 Admission to same day surgery center [facility] Work Phone: [facility]Endoscopy Start: 10-01-2022 End: 10-01-2022 ambulatory [place] Work Phone: [facility] Work Phone: Start: 09-15-2022 End: 09-15-2022 ambulatory [place] Work Phone: [facility] Work Phone: Start: 09-15-2022 End: 09-15-2022 Patient encounter procedure [facility] Work Phone: [facility] Start: 08-23-2022 End: 08-23-2022 ambulatory [place] Work Phone: [facility] Work Phone: Start: 08-23-2022 End: 08-23-2022 Patient encounter procedure [facility] Work Phone: [facility] Start: 08-17-2022 End: 08-17-2022 ambulatory [place] Work Phone: [facility] Work Phone: Start: 08-17-2022 End: 08-17-2022 Patient encounter procedure [facility] Work Phone: [facility]Ultrasound, [facility] Start: 08-16-2022 End: 08-16-2022 Patient encounter procedure [facility] Work Phone: [facility] Start: 08-15-2022 End: 08-15-2022 ambulatory [place] Work Phone: [facility] Work Phone: Start: 08-15-2022 End: 08-15-2022 Patient encounter procedure [facility] Work Phone: [facility]Labor[facility], Specimen Start: 08-10-2022 End: 08-10-2022 ambulatory [place] Work Phone: [facility] Work Phone: Start: 08-10-2022 End: 08-10-2022 Patient encounter procedure [facility] Work Phone: [facility] Start: 08-02-2022 End: 08-02-2022 Patient encounter procedure [facility] Work Phone: [facility] Start: 07-31-2022 Non-patient / Non-visit [facility] Work Phone: [facility] Start: 07-30-2022 End: 07-30-2022 ambulatory [facility] Work Phone: [facility] Work Phone: Start: 07-30-2022 End: 07-30-2022 Patient encounter procedure [facility] Work Phone: [facility]/Neurology Start: 07-13-2022 End: 07-13-2022 ambulatory [place] [facility] Work Phone: [facility] Work Phone: Start: 07-13-2022 End: 07-13-2022 Patient encounter procedure [facility] Work Phone: [facility] Start: 07-02-2022 End: 07-02-2022 ambulatory [place] [facility] Work Phone: [facility] Work Phone: Start: 07-02-2022 End: 07-02-2022 Patient encounter procedure [facility] Work Phone: [facility] Start: 07-02-2022 End: 07-02-2022 Patient encounter procedure [facility] Work Phone: [facility] Start: 06-30-2022 End: 06-30-2022 ambulatory [facility] Work Phone: [facility] Work Phone: Start: 06-30-2022 End: 06-30-2022 Patient encounter procedure [facility] Work Phone: [facility] Start: 06-02-2022 End: 06-02-2022 ambulatory [place] [facility] Work Phone: [facility] Work Phone: Start: 06-02-2022 End: 06-02-2022 Patient encounter procedure [facility] Work Phone: [facility] Start: 04-14-2022 Non-patient / Non-visit [facility] Work Phone: [facility] Start: 04-13-2022 Non-patient / Non-visit [facility] Work Phone: [facility] Start: 04-13-2022 End: 04-13-2022 ambulatory [place] [facility] Work Phone: [facility] Work Phone: Start: 04-13-2022 End: 04-13-2022 Patient encounter procedure [facility] Work Phone: [facility]Cardi[facility] Start: 02-05-2022 End: 02-05-2022 ambulatory Ivory Foley PT [facility] Comment on above: Chronic right-sided low back pain with right-sided sciatica (Primary Dx); Chronic back pain greater than 3 months duration Start: 01-17-2022 ambulatory Eleazar Suarez MD Work Phone: Pain Management Comment on above: Question regarding X R LUMBAR GENERAL 3V AP/LAT/L5-S1 Start: 01-15-2022 End: 01-15-2022 Patient encounter procedure Eleazar Suarez MD Work Phone: Pain Management Comment on above: Chronic right-sided low back pain with right-sided sciatica (Primary Dx); Chronic back pain greater than 3 months duration Start: 01-12-2022 Telephone encounter Eleazar johnson MD Work Phone: Pain Management Comment on above: Future Appointment Start: 12-26-2021 Telephone encounter Bisi Hernandez APRN.APPLICATION SECURITY DEVELOPER Work Phone: [facility] Comment on above: Results Start: 12-25-2021 End: 12-25-2021 Office outpatient new 30 minutes Tiffany Cunningham APRN.APPLICATION SECURITY DEVELOPER Work Phone: [facility] Comment on above: Sinus pressure (Prim abdulkadir Dx); Post-nasal drainage; Exposure to COVID-19 virus Procedures Date Procedure Procedure Detail Performing Clinician Start: 07-05-2023 Radiologic exam ches t 2 views Scot Cheung APRN.APPLICATION SECURITY DEVELOPER Work Phone: Start: 07-05-2023 INFLUENZA A&B MOLECU LAR (POC) Scot Jonatan CREDIT RISK ANALYTICS MANAGER.APPLICATION SECURITY DEVELOPER Work Phone: Start: 01-14-2023 X-ray of lumbar spin e, two or three views [facility] Work Phone: Start: 01-12-2023 Radiography of thora cic spine [facility] Work Phone: Start: 01-12-2023 X-ray of cervical spine [facility] Work Phone: Start: 10-01-2022 Colonoscopy [facility] Work Phone: Start: 09-15-2022 Urine culture [facility] Work Phone: Start: 08-17-2022 Transvaginal echography [facility] Work Phone: Start: 08-10-2022 Screening mammography V Work Phone: Start: 01-29-2012 Lipid 1996 panel - S mariela or Plasma Scot Cheung CREDIT RISK ANALYTICS MANAGER.APPLICATION SECURITY DEVELOPER Work Phone: Anaerobic microbial culture [facility] Work Phone: Eye Culture [facility] Work Phone: Investigation of transfusion reaction [facility] Work Phone: Urine culture [facility] Work Phone: Plan of Treatment Date Care Activity Detail Author Start: 09-02-2031 Urine microalbumin profile DTaP,Tdap,Td Vaccine (5 - Td or Tdap) [facility] Start: 07-28-2027 Screening for malign ant neoplasm of cervix [facility] Start: 01-19-2024 Covid-19 Vaccine ( season) Covid-19 Vaccine ( season) [facility] Start: 01-19-2024 Influenza vaccination Influenza Vacc ine (#1) [facility] Start: 05-20-2023 Depression Assessment Depression Ass essment [facility] Start: 01-18-2023 Covid-19 Vaccine ( season) Covid-19 Vaccine ( season) [facility] Start: 01-18-2023 Influenza vaccination Influenza Vacc ine (#1) [facility] Start: 10-01-2022 Colsc flx w/rmvl of tumor polyp lesion snare tq COLONOSCOPY W/LESION REMOVAL [facility] Start: 10-01-2022 Egd transoral biopsy single/multiple EGD BIOPSY SINGLE/MULTIPLE [facility] Start: 10-01-2022 Patient discharge [facility] Start: 08-15-2022 Bacterial nucleic ac id assay [facility] Start: 08-15-[address] [facility] Start: 08-02-2022 Patient referral [facility] Work Phone: Start: 01-18-2022 Influenza vaccination INFLUENZA (#1) [facility] Start: 12-25-2021 End: 01-08-2022 SARS-CoV-2 (COVID-19) RNA [Presence] in Respiratory specimen by VICTOR HUGO with probe detection 2019 CORONAVIRUS Microbiology Routine Sinus pressure Post-nasal drainage Exposure to COVID-19 virus Expected: 12/25/2021, Expires: 01/08/2022 [facility] Work Phone: Comment on above: Expected: 12/25/2021 , Expires: 01/08/2022 Start: 2020 RSV Vaccine (1 - 1-d ose 60+ series) RSV Vaccine (1 - 1-dose 60+ series) [facility] Start: 01-28-2017 Lipid panel Lipid Screening [facility] Start: 01-28-2017 LIPID SCREEN LIPID SCREEN [facility] Start: 10-18-2016 PAP TESTING PAP TESTING [facility] Start: 01-28-2015 DIABETES SCREEN DIABETES SCREEN [facility] Start: 01-28-2015 Diabetes Screening Diabetes Screenin g [facility] Start: 2010 Influenza vaccination LUNG CANCER SC REENING [facility] Start: 2010 Screening for malign ant neoplasm of lung Lung Cancer Screening [facility] Start: 2010 SHINGRIX VACCINE (1 of 2) SUAREZ GRIX VACCINE (1 of 2) [facility] Start: 2005 COLOGUARD (FIT-DNA) COLOGUARD (FIT-D NA) [facility] Start: 2005 Colonoscopy COLONOSCOPY [facility] Start: 2005 COLORECTAL CANCER SCREENING COLORECTAL CANCER SCREENING [facility] Start: [address] COLONOGRAPHY [facility] Start: 2005 FECAL OCCULT BLOOD FECAL OCCULT BLOO D [facility] Start: 2005 Screening for malign ant neoplasm of colon [facility] Start: 2005 SIGMOIDOSCOPY SIGMOIDOSCOPY [facility] Start: 2000 Mammography MAMMOGRAM [facility] Start: 2000 Screening for malign ant neoplasm of breast Mammogram Screening [facility] Start: 1990 HPV TESTING HPV TESTING [facility] Start: 1979 Urine microalbumin profile DTAP,TDAP,TD (1 - Tdap) [facility] Start: 1978 Anxiety Screening Anxiety Screening [facility] Start: 1978 Depression Screening Depression Scre ening [facility] Start: 1978 HEPATITIS C SCREENING HEPATITIS C [facility] Start: 1978 Hepatitis C screening Hepatitis C [facility] Start: 1978 HIV SCREENING HIV SCREENING [facility] Start: 1978 HIV screening HIV Screening [facility] Start: 1972 Adult depression screening assessment DEPRESSION SCREENING [facility] Start: 1966 PNEUMOCOCCAL (1 - PCV) PNEUMOCOCCAL (1 - PCV) [facility] Start: 1966 Pneumococcal vaccination Pneum ococcal Vaccine (1 of 2 - PCV) [facility] Start: 1960 COVID-19 VACCINE (#1) COVID-19 VACCI NE (#1) [facility] Anaerobic Culture Anaerobic Culture [facility] Bacteria identified in Eye by Aerobe culture [facility] Bacteria identified in Unspecified specimen by Anaerobe culture [facility] Eye Culture Eye Culture [facility] Inhalation bronchial challenge testing [facility] Microscopic observat ion [Identifier] in Unspecified specimen by Gram stain Gram Stain [facility] Patient referral [facility] Work Phone: Polysomnography [facility] Polysomnography [facility] PT PLAN OF CARE CERTIFICATION PT PLAN OF CARE CERTIFICATION Procedures Routine Chronic right-sided low back pain with right-sided sciatica Chronic back pain greater than 3 months duration Ordered: 02/05/2022 [facility] Comment on above: Ordered: 02/05/2022 End: 02-14-2023 Radex spine lumbosacral 2/3 views XR LUMBAR GENERAL 3V AP/LAT/L5-S1 Radiology Routine Chronic right-sided low back pain with right-sided sciatica 1 Occurrences starting 01/15/2022 until 02/14/2023 [facility] Work Phone: Comment on above: 1 Occurrences starti ng 01/15/2022 until 02/14/2023 SARS-CoV-2 (COVID-19 ) RNA [Presence] in Respiratory specimen by VICTOR HUGO with probe detection COVID NAAT, UPPER RESPIRATORY, ROUTINE Microbiology Routine URI, acute Ordered: 07/05/2023 [facility] Work Phone: Comment on above: Ordered: 07/05/2023 [facility] Immunizations Immunization Date Immunization Notes Care Provider Bob abbott 02-14-2022 influenza virus vaccine, unspecified formulation Scot Cheung APRN.CNP Work Phone: [facility] 08-02-2019 tetanus toxoid, redu jim diphtheria toxoid, and acellular pertussis vaccine, adsorbed [facility] Work Phone: [facility] Payers Date Payer Category Payer Self-pay [id number] 2023 Private Health Insurance [id number] 2022 Medicaid [id number] 2021 Medicaid [id number] Private Health Insurance [id number] Private Health Insurance [employer] [id number] Private Health Insurance [facility] [id number] Unknown ANTHEM [id number] Unknown [facility] [id number] Unknown [id number] Unknown [id number] Unknown [id number] 62 Unknown [id number] 62 Unknown [id number] 62 Unknown [id number] 62 Unknown [id number] 62 Unknown [id number] 62 Unknown [id number] 62 Social History Date Type Detail Facility Start: 12-25-2021 [facility] History of tobacco use Cigarette Smoker [facility] Start: 12-25-2021 End: 06-04-2022 Cigarettes smoked current (pack per day) - Reported 0.8 [facility] Start: 12-25-2021 Tobacco use and exposure Smokeless tobacco non-user [facility] Start: 12-25-2021 End: 07-05-2023 Alcohol intake Current non-drinker of alcohol (finding) [facility] Start: 1960 Sex Assigned At Not on file C [facility] Start: 12-15-2021 End: 01-24-2022 Exposure to SARS-CoV-2 (event) Not sure [facility] Start: 01-14-2020 End: 04-25-2023 Tobacco smoking status NHIS Unknown if ever smoked [facility] Start: 01-14-2020 Non-smoker [facility] Start: 1960 Sex Assigned At Female [facility] Start: 06-04-2022 End: 07-05-2023 Tobacco use panel [facility] National Score (1-100), lower number is lower risk 85 [facility] Start: 07-05-2023 Gender identity Identifies as female gender (finding) [facility] Start: 07-05-2023 Sexual orientation Heterosexual (fin ding) [facility] NEGATED: Highlighted row [facility] Goals Date Patient Goal Desired Activity /State Mental Status Date Assessment Result Facility 10-01-2022 Cognitive function Voice/Name [facility] Work Phone: Clinical Notes 12-25-2021 to 07-05-2023 Manny Nixon RT(R) - 07/05/2023 11:30 AM Scot Smith APRN.CNP - 07/05/2023 11:19 AM EST Note Date & Type Note Facility 07-05-2023 Note HNO ID: [id number] Author: MANNY NIXON RT(R) Service: ? Author Type: Project Landscape Architect Type: Progress Notes Filed: 07/05/2023 11:42 Note Text: Radiology Service Progress Note PATIENT NAME: Thuan Gardner DATE OF SERVICE: July 05, 2023 TIME: [...] PATIENT PRESENTS WITH AN IMPLANTABLE OR ATTACHED COMPUTATIONAL CHEMIST: No RADIOLOGY DEPARTMENT: General X-ray: Exam(s) Completed: Chest X-Ray PERIPHERAL IV DATA: Not applicable SIGNED BY: RT Dagoberto(R) July 05, 2023 11:33 AM [facility] 07-05-2023 Note HNO ID: [id number] Author: SCOT CHEUNG APRN.APPLICATION SECURITY DEVELOPER Service: ? Author Type: Nurse Practitioner Type: Progress Notes Filed: 07/05/2023 12:07 Note Text: Subjective HPI HPI Thuan Gardner is a 63 year old female who [...] radiographic abnormality. Dictate (more content not included)... [facility] 07-05-2023 History of Present illness Narrative Radiology Service Progress Note PATIENT NAME: Thaun Gardner DATE OF SERVICE: July 05, 2023 TIME: [...] PATIENT PRESENTS WITH AN IMPLANTABLE OR ATTACHED COMPUTATIONAL CHEMIST: No RADIOLOGY DEPARTMENT: General X-ray: Exam(s) Completed: Chest X-Ray PERIPHERAL IV DATA: Not applicable SIGNED BY: RT Dagoberto(R) July 05, 2023 11:33 AM documented in this encounter [facility] 07-05-2023 History of Present illness Narrative Subjective HPI HPI Thuan Gardner is a 63 year old female who [...] HFA 90 MCG/ACTUATION AEROSOL INHALER Scot Cheung APRN.APPLICATION SECURITY DEVELOPER documented in this encounter [facility] 04-23-2023 Discharge summary Note Date/Time April 23, 2023 1:40pm [facility] Physical [facility] [address] [place] [address] / REHABILITATION SERVICES DISCHARGE SUMMARY MR#: [id number] Acct: [id number] Name: THUAN GARDNER Rep #: [id number] : 1960 63 From: Elvis Judge DPT, OCS, CSCS Referring DrJosephine: LENNIE Kwan Status: REG R Insurance: [facility] Patient Information Patient Information: THUAN GARDNER was seen in my office for initial evaluation on 01/22/23. The following Plan of Care was established for this patient: POC Established Initial Frequency: 2x /Week Initial Duration: 4-6 Weeks Anticipated Interventions Patient/Client Instruction: Educate patient on: Condition and Plan of Care For the Purpose of:: To decrease pain, To increase ROM, To improve nutrient delivery to tissue, To improve muscle performance and motor function, To increase tolerance to activity/condition/position and To improve ability of physical actions for home/community/work/leisure Therapeutic Exercise to Include: Strength training, Postural training, Flexibilty training, "In an aquatic setting", Passive ROM and Active ROM For the Purpose of:: To decrease pain, To increase ROM, To improve nutrient delivery to tissue, To improve muscle performance and motor function, To increase tolerance to activity/condition/position and To improve ability of physical actions for home/community/work/leisure Last Seen Last Seen: This patient was last seen in our office 02/13/23. Pertinent comments regardingtheir Physical therapy will appear below: Pt seen 4 visits of POC. Did not attend any further visits. At this point, it has been over 2 months and I will discontinue due to nonattendance. At this point I will be discontinuing this patient from physical therapy. I would be happy to see this patient again in the future if found appropriate by the physician. Thank you! Elvis Judge, DPT, OCS, CSCS Balance/Gait/Functional tests Balance/Special Test Scores Oswestry Neck Score: 17 <Electronically signed by Elvis Judge DPT, OCS, CSCS> 04/23/23 1340 CC: LENNIE Kwan; [facility] Signed [facility] Work Phone: 1(280) 898-461005-15-2023 History and physical note Author Dr. Ndiaye [facility] October 01, 2022 7:31am Note Date/Time October 01, 2022 7:15a m [facility] Medical Records Department [address] [place] [address] History & Physical Exam 10/01/22 0714 MR#: [id number] Acct: [id number] Name: THUAN GARDNER Rep #:[id number] : 1960 62 From: Yessenia Ndiaye MD PCP: [facility] atus:[facility] Location: [place] [address] HPI - General General Date of Admission: 10/01/22 HPI Narrative THUAN GARDNER, is a 62 F who presents for screening colonoscopy and EGD. Patient states that her reflux symptoms at night have improved on the omeprazolehowever she still does have about the same bloating which patient states she haspretty constantly. Patient states that her diarrhea has improved and she has been off them metformin. Patient denies any changes family history or medical history since last office visit. office visit 08/16/22 HPI HPI: 60-year-old female presents for possible pilonidal cyst with abscess history.? Patient states she has had this for about 7 years occurs off and on patient states the area will be inflamed and will drain purulent material.? States this happens about once a month.? Patient states she is brought up once to a physician but they never did anything that she sought out care and just dealt with it.? Patient never had any antibiotics for this specifically she was recently on antibiotics for a UTI which she thinks helped this area healed.? Patient states she seems to notice this becoming inflamed when she is constipated.? Patient has never had previous colonoscopy.? Patient denies familyhistory of colon cancer?however she does not know much about her father's side of the family.? Patient has bowel movements daily denies any blood.? Patient states she drinks plenty of water does have occasional issues with constipation she is unsure how much fiber she gets daily.? Patient states that she she does have bloating constantly and reflux maybe once every 3 to 4 months.? Patient states she is unable to eat any spicy foods or foods with tomato sauces and alsoonly eats small meals and cannot eat before bed.? Patient has tried taking some Gas-X occasionally for the bloating but she still continues to have the symptom. [facility] Medical History (Updated 09/27/22 @ 14:58 by Madelaine Archuleta) Allergic rhinitis due to allergen Anxiety Arthritis Arthritis Asthma Back pain Chronic obstructive asthma (with obstructive pulmonary disease) CPAP (continuous positive airway pressure) dependence Dietary restriction Difficulty balancing Elevated IgE level Fatigue Former smoker Gastric reflux Glaucoma History of echocardiogram History of edema History of irregular heartbeat History of pain when walking History of steroid therapy HTN (hypertension) Insulin dependent diabetes mellitus Leg cramps Post-menopausal Shortness of breath on exertion Shoulder pain Sleep apnea SOB (shortness of breath) Wears dentures Wears glasses Home Medications metformin 1,000 mg tablet 1,000 mg PO BIDCM DIABETES 07/08/17 [History Last Taken 07/08/17 1000 MG] rosuvastatin 10 mg tablet 10 mg PO QHS CHOLESTEROL 07/08/17 [History Last Taken 07/08/17 10 MG] spironolactone 25 mg tablet 25 mg PO DAILY BLOOD PRESSURE 07/08/17 [History Last Taken 01/15/20 08:15] cyanocobalamin (vitamin B-12) 5,000 mcg disintegrating tablet 5,000 mcg PO DAILY01/14/20 [History Last Taken Unknown] loratadine 10 mg capsule 10 mg PO DAILY 01/14/20 [History Last Taken Unknown] magnesium oxide 400 mg PO DAILY 01/14/20 [History Last Taken Unknown] multivitamin with minerals 1 ea PO DAILY 01/14/20 [History Last Taken Unknown] dulaglutide 1.5 mg/0.5 mL subcutaneous pen injector (Trulicity) 1.5 ml subcut SA07/02/22 [History Last Taken Unknown] pioglitazone 30 mg tablet 30 mg PO DAILY 07/02/22 [History Last Taken Unknown] umeclidinium 62.5 mcg-vilanterol 25 mcg/actuation powdr for inhalation (Anoro Ellipta) 1 inh inhalation DAILY #60 ea 07/02/22 [Rx Last Taken Unknown] ipratropium bromide 21 mcg (0.03 %) nasal spray 1 spray intranasal BID rhinitis #30 mL 08/02/22 [Rx Last Taken Unknown] omeprazole 40 mg capsule,delayed release 40 mg PO QDAY #30 caps 08/16/22 [Rx Last Taken Unknown] albuterol sulfate 90 mcg/actuation aerosol inhaler 1 inh inhalation Q6H PRN ASTHMA 09/27/22 [History Last Taken Unknown] cholecalciferol (vitamin D3) 50 mcg (2,000 unit) capsule (Vitamin D3) 50 mcg PO DAILY 09/27/22 [History Last Taken Unknown] insulin glargine 100 unit/mL (3 mL) subcutaneous pen (Lantus Solostar U-100 Insulin) 60 unit subcut QPM 09/27/22 [History Last Taken Unknown] losartan 50 mg tablet 50 mg PO DAILY 09/27/22 [History Last Taken 10/01/22 05:50] montelukast 10 mg tablet (Singulair) 10 mg PO QHS 09/27/22 [History Last Taken Unknown] triamcinolone acetonide 55 mcg nasal spray aerosol (Nasacort Allergy) 1 spray intranasal QHS 09/27/22 [History Last Taken Unknown] Allergy/AdvReac Type Severity Reaction Status Date / Time mold Allergy Intermediate Other Verified 10/01/22 07:03 Seasonal Allergies: Uncoded Allergy ASTHMA Verified 10/01/22 07:03 [environmental] LIKE SYMPTOMS Family History Other Arthritis CVA (cerebral vascular accident) Diabetes Emphysema of lung FH: cataracts Glaucoma Gout Heart disease Kidney disease Lung disease Porphyria Surgical History (Updated 09/27/22 @ 14:58 by Madelaine Archuleta) H/O removal of cyst History of cystoscopy History of tonsillectomy History of tubal ligation Social History Smoking Status: Former smoker alcohol intake: never Past Medical/Surgical History Planned Operation Planned Operative Procedure/s: EGD/CSCOPE S.O.S: No Previous Hospitalizations/Surgeries HX Hospitalizations: No HX of Surgeries: tubal ligation teeth extraction toenail removed t&a Any Problems With Anesthesia: No You/Your Family Experience Fever (Hyperthermia) With Anes: No Cholinesterase deficiency: No Cardiovascular Hx Chest Pain within Last 2 months: No Hx of Irregular Heartbeat and/or Afib: No ("skips a beat") Hx Heart Attack: No Hx Congestive Heart Failure: No Hx Rheumatic Fever: No Hx Hypertension: Yes (CONTROLLED WITH MED FOR THE MOST PART PER PATIENT) Hx Internal Defibrillator: No Hx Pacemaker: No Hx Cardiac Catheterization: No Hx Cardiac Surgery/Stents/Etc.: No Hx Stress Test: No Hx Pain in Legs when Walking/Leg Cramps: Yes (occ pain) Respiratory Chronic Cough: No HX of Shortness of Breath: Yes (sob with 2 flights of stairs) Hx Chronic Obstructive Pulmonary Disease (COPD): Yes (prn inhaler) Hx Asthma: Yes Hx Emphysema: No Hx Sleep Apnea: Yes CPAP: Yes BIPAP: No Hx Respiratory Tract Infection/Cold (presently): No (ALLERGIES) Result (for STOP score): Positive Hx Smoking: Yes (quit 8 yrs ago) Smoking Status: Former smoker Gastrointestinal Hx Gastroesophageal Reflux: No (occ heartburn) Hx Gastrointestinal Disorders: Yes (ibs) Hx Gastrointestinal Bleed: No Hx Ulcer: No Hx Hiatal Hernia: No Difficulty Chewing/Swallowing: No Special diet followed at home: Yes (ada) Hx Unplanned Weight Loss of 20#: No HX Unplanned Weight Gain of 20#: No Neurological Hx Seizures: No HX Syncope/Blackout Spells/Unconsciousness: No Hx Transient Ischemic Attacks (TIA): No Hx Multiple Sclerosis: No Hx Parkinson's Disease: No Hx Head/Neck Injury: No Hx Headaches: Yes (occ) Hx Back Injury/Pain: Yes (lower back pain) Recent Onset of Speech Difficulty: No Restless Legs: Yes Does patient have nerve stimulator: No Blood Disorder Hx Leukemia: No Bleeding Tendencies: No Hx Deep Vein Thrombosis: No Hx High Cholesterol: Yes (on med) Blood Transmitted Disease: No Hx Hepatitis: No Hx Cirrhosis: No Hx Anemia: No Hx Blood Disorders: No Reproduction : No Is Patient Lactating: No Hx Hysterectomy: No Hx Tubal Ligation: Yes Are You Post Menopause: Yes Genitourinary Hx Renal Disease: Yes (kidney stone) Hx Dialysis: No Musculoskeletal Hx Arthritis: Yes Hx Rheumatoid Arthritis: No Hx Gout: No Recent Onset of an Orthopedic Problem: No Endocrine Hx Diabetes: Yes Insulin: Yes Thyroid Disease: No Hx Steroid Therapy: No Psycho/Social Hx Substance Use: No Hx Alcohol Use: No Hx Anxiety: Yes (on med) Hx Depression: No Mental Illness: No Hx Dementia: No Miscellaneous Hx Cancer: No Recent Exposure to Contagious Disease: No Hx of C-Diff: No Any Loose Teeth: No (dentures) Allergies mold Allergy (Intermediate, Verified 10/01/22 07:03) Other sinus reactions Seasonal Allergies: Uncoded [environmental] Allergy (Verified 10/01/22 07:03) ASTHMA LIKE SYMPTOMS Discharge Is Pt Admitted From a Detention, or a Penitentiary: No After D/C, Where Do you Plan to Go: Return Home From the [facility] History Number of Risk Factors: 6 Vital Signs Vital Signs Vital Signs: 10/01/22 07:04 10/01/22 07:05 Temperature 97.0 F L Temperature Source Temporal Pulse Rate 71 Respiratory Rate 18 Respiratory Pattern Normal Blood Pressure 126/61 H Blood Pressure Mean 82 Blood Pressure Source Monitor Blood Pressure Position Semi-Fowlers Blood Pressure Location Right Arm Pulse Ox 99 Oxygen Delivery Method Room Air Weight Weight: 235 lb 6.4 oz Body Mass Index (BMI) 39.4 Physical Exam Const alert, oriented x3 and no apparent distress HEENT normocephalic and head/scalp atraumatic Resp normal respiratory effort Cardio regular rate GI soft to palpation and non-tender; Negative for non-distended Palpation: Negative for guarding Extremity no clubbing, cyanosis or edema Neuro CN's II-XII intact bilaterally Psych mental status grossly normal Assessment & Plan Assessment/Plan (1) Bettye-rectal abscess: (2) Bloating symptom: (3) Screening for colon cancer: Surgery Risks - Colonoscopy I discussed with the patient the risks of the procedure: Yes Risks Include but are not Limited To: Plan for EGD and colonoscopy. Risks include but are not limited to: Bleeding, perforation requiring further surgery, inability to complete colonoscopy requiring barium enema. 10/01/22 0731 <Electronically signed by Yessenia Ndiaye MD> Cosigner Signature (if applicable): CC: Dr. Yessenia Ndiaye MD; [facility]~ Signed [facility] Work Phone: [phone] Procedure [facility] 10-01-2022 Procedure [facility]05-15-[address] [facility]05-15-2023 Procedure [facility] 07-31-2022 Procedure [facility]09-19-2022 History of Present illness Narrative* Ivory oFley, PT - 02/05/2022 5:17 PM EDT Episode Visit Count: 1 Therapist That Will Accept/Oversee The Plan Of Care: Ivory Foley Start of Care Date: 02/05/22 Onset Date: ("It's been many years.") Plan of Care Certification Date: 02/05/22 Next Certification Due Date: 04/07/22 Patient Identified by Name and Date of : Yes [facility] PHYSICAL THERAPY EVALUATION PLAN OF CARE: Assessment: Thuan Gardner presents with diagnosis of chronic R side [...] . She will benefit from skilled therapy ser vices to meet the goals established for this plan of care as noted below. Goals for Episode of Care: created on 02/05/22 through 04/07/22 Pt will have good understanding and application of modifications to body mechanics during sitting, sleeping, standing and work activities to improve management of symptoms. [place] in home exercise program. Patient will decrease pain rating by 2 points to meet minimal clinical important difference for numeric pain rating scale. Patient will increase active ROM of lumbar spine to fingertips to mid to distal lower legs to allowpt to to improve performance of ADLs. Patient will demonstrate increase in core trunk strength to 5/5 during manual muscle testing in order to improve function for prior functional tasks and work tasks. Perform walking in the house;walking in the community;rising from a chair;sitting;cleaning;sleeping; without pain. Improve postural awareness. Patient will be able to correct postural deviations independently in order to improve postural alignment of trunk during ambulation, sitting, standing, functional activities, and work activities, to decrease current pain , and prevent future recurrence. Patient Goals: "I feel like there's more to it than just therapy, but hopefully I can get some relief from this." Planned Interventions, Frequency, and Duration: Current Frequency: 2x/week Duration: 8 weeks Total Number of Visits Planned: 16 Planned Treatment Interventions: Therapeutic exercise (38846);Neuromuscular re- education (44268);Manual therapy (82929);Patient/Family/Caregiver Education PLAN FOR NEXT VISIT: Assess response to HEP and review as needed. Progress core sterngthening and low back mobility exercises. May add seated stepper or stationary bike if reduces symptoms. Patient demonstrates good understanding of plan of care and treatment. The above goals and plan of care were discussed and agreed upon by patient/family. SUBJECTIVE: Thuan Gardner is a 61 year old female seen today for Pt reports longstanding historyof low back pain. She states currently, pain is certain ways that I move I can feel it. "It feels like there is a small spot to the R of my spine. When it hurts a lot it bothers my hip too. When it is super bad it hurts from the hip all the way down. 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 The main spot never goes away, but the leg symptoms will work itself out. Sometimes lasts a week , sometimes only a few days." She reports difficulty with sit to stand and walking. This weekend she walked around [place] [employer] [place] and her back got really painful. Sat and rested for a while and it eased up. Doing housework yesterday and had to keep sitting down intermittently to rest. Laying on right side is painful. Doesn't lie supine d/t pain. Worse with chairs that allow back to slouch. Patient Goals: "I feel like there's more to it than just therapy, but hopefully I can get some relief from this." Functional Limitations: walking in the house;walking in [...] provided Education Provided To: Patient Education Mode/Type: Demonstration;Explanation/Discussion;Literature/Printed Materials;Performance Response to Education/Teach Back: States/Identifies;Return Demonstration [...] 50 Ivory Foley PT documented [facility] Miscellaneous Notes* Telephone Encounter - Madelaine Jim APRN.[facility] - 01/18/2022 2:15 PM EDT PT order signed off * Telephone Encounter - Charisma Saucedo RN - 01/18/2022 9:[address] Suarez reviewed patient's XR Lumbar Spine Dr. Suarez notes degenerative changes Mild osteophyte formations Facet arthritis Nothing acute Dr. Suarez recommends patient to participate in 4-6 weeks of physical therapy. If no improvement after 4-6 weeks of physical therapy, the next step would be MRI of the lumbar spine documented in this encounter[facility]08-29-[facility]22 History of Present illness Narrative* Eleazar Suarez MD - 01/15/2022 3:48 PM EDT [facility] Date: January 15, 2022 - 3:48 PM Thuan Gardner is self referred. Chief Complaint: back pain SUBJECTIVE: Thuan Gardner, is a 61 year old female who [...] The pain is described as dull and "like somebody is stabbing me with a pen". The pain intensity is rated 0. The [...] mouth once daily. (Patient not taking: No sigreported) metFORMIN 500 mg ORAL tablet Take 1 [...] Panel: No results found for: UQCANN, UQBNZL, QGR4IRN, UQAMPH, UQMAMP, UQBUPRE, UQNORBUP, UQMTHD, UQEDDP, UQTRAM, UQDTRM, UQFNTL, UQNFTL, UQCODE, UQMORP, UQDCDN, UQHCOD, UQOXYC, UQHMOR, UQOXYM, UQCREA, UQPH,UQSPGR, UQOXID, UQSPQ The pain panel was N/A [...] diagnostic tests reviewed for today's visit: The [facility] EMR was reviewed during thevisit IMAGING STUDIES: No new imaging studies were [...] but also diagnostic information that procedures provide. retirement use of any opioid pain medication is [...] with patient. The patient is in agreement withthe above and verbalized understanding. I have discussed and confirmed the above treatment plan with the patient and I have reviewed the nurses notes and I am aware of the family/social history. I have confirmed ROS findings. Eleazar Suarez MD January 15, 2022 cc: SELF Phone: N/A Fax: Results of consultation to be transmitted via electronic medical record for those providers who practice within [facility] or with access to [employer] via MD Connect, or via letter. documented in this encounterKind[facility]08-26-2022 Miscellaneous Notes* Telephone Encounter - Carissa Walker In - 01/12/2022 3:58 PM EDT Attempted to contact patient via telephone regarding upcoming NEW patient appointment with Dr. Jerome 01/15/22. [facility] relaying the message below: This is the [facility] calling regarding your upcoming appointment with Dr. Suarez. To avoid a delay in your care, please bring any imaging (such as MRI, CT, XR, etc.) that have been done outside of the [facility] Systems on a disk to be viewed at your appointment. Please be advised that this appointment is a consult only and narcotics will NOT be prescribed. is primarily an interventional pain management provider. He treats with physical therapy, injections of the spine or joints, and non- narcotic medications. Dr. Suarez will not take over and manage any medications that are already being prescribed by another provider. If you have any questions or need to cancel or reschedule your appointment, please contact the [facility] at [phone]." documented in this encounterKind[facility]08-09-2022 Miscellaneous Notes* Telephone Encounter - Suyapa Ty LPN - 12/26/2021 8:59 AM EDT Phone call placed patient advised (see prior provider encounter) Patient verbalized understanding, agreed with plan of care. Suyapa Ty LPN * Telephone Encounter - Bisi Hernandez APRN.CNP - 12/26/2021 7:22 AM EDT Patient is positive for covid please notify and tell to quarantine for 5 days then mask for 5 days per CDC. Follow up if symptoms worsen. documented in this encounterKind[facility]08-08-2022 Instructions* Patient Instructions* Tiffany Cunningham APRN.CNP - 12/25/2021 4:42 PM EDT covid test ordered You will be notified in 24 -48 hours, results available on [facility] isolation until covid results are back Rest, [...] breath, inability to swallow. documented in this encounterKind[facility]08-08-2022 History of Present illness Narrative* Tiffany Cunningham APRN.CNP - 12/25/2021 4:39 PM EDT Subjective The history is provided by the patient. No speech/language therapist was used. HPI Thuan Gardner is a 61 year old female who [...] have confirmed and edited as necessary, the [facility] Review of Systems Constitutional: Negative for chills, [...] in 24-48 hours with results, available on mychart Diagnosis and treatment plan were discussed and questions were answered to the patient's satisfaction. Pt acknowledged understanding of concepts and follow up plan. Specific signs and symptoms that would indicate the need for higher level of care were discussed indetail warranting prompt ER evaluation. Tiffany Cunningham APRN.HELENE documented in this encounterKind[facility] DaytonEvalusaint francis [facility] note* Diagnosis Sinus pressure- Primary Other diseases of nasal cavity and sinuses Post-nasal drainage Unspecified sinusitis (chronic) Exposure to COVID-19 virus documented in this encounter [facility]* Diagnosis Chronic right-sided low back pain with right-sided sciatica- Primary Chronic back pain greater than 3 months duration Backache, unspecified [facility] Diagnosis Chronic right-sided low back pain with right-sided sciatica- Primary Chronic back pain greater than 3 months duration Backache, unspecified documented in this encounter [facility]* Diagnosis Chronic right-sided low back pain with right-sided sciatica- Primary Chronic back pain greater than 3 months duration Backache, unspecified documented in this encounter [facility] DaytonEvaluation noteNo assessment information availableWNorwalk [facility] Hospital Work Phone: evaluation note* Diagnosis Onset Date Resolution Status Chronic obstructive asthma ( with obstructive pulmonary disease) chronic Sinusitis chronic Sleep apnea [facility] Work Phone: evaluation note* Diagnosis Onset Date Resolution Status Chronic obstructive asthma ( with obstructive pulmonary disease) chronic Sinusitis chronic Sleep apnea chronic Chronic obstructive asthma ( with obstructive pulmonary disease) chronic Sinusitis chronic Sleep apnea [facility] Work Phone: evaluation note* Diagnosis Onset Date Resolution Status Chronic obstructive asthma ( with obstructive pulmonary disease) chronic Sinusitis chronic Sleep apnea chronic Chronic obstructive asthma ( with obstructive pulmonary disease) chronic Sinusitis chronic Sleep apnea chronic Bloating symptom acute Screening for colon cancer a [facility] Work Phone: evaluation note* Diagnosis Onset Date Resolution Status Chronic obstructive asthma ( with obstructive pulmonary disease) chronic Sinusitis chronic Sleep apnea chronic Chronic obstructive asthma ( with obstructive pulmonary disease) chronic Sinusitis chronic Sleep apnea chronic Bloating symptom acute Screening for colon cancer a cute Bloating symptom acute Screening for colon cancer a [facility] Work Phone: Evaluation note* Diagnosis Onset Date Resolution Status Chronic obstructive asthma ( with obstructive pulmonary disease) chronic Sinusitis chronic Bloating symptom acute Screening for colon cancer a cute Bloating symptom acute Screening for colon cancer a cute Allergic rhinitis due to allergen acute Elevated IgE level acute SANDI on CPAP acute Chronic obstructive asthma ( with obstructive pulmonary disease) [facility] Work Phone: Evaluation note* Diagnosis Onset Date Resolution Status Bloating symptom acute Screening for colon cancer a cute Allergic rhinitis due to allergen acute Elevated IgE level acute SANDI on CPAP acute Chronic obstructive asthma ( with obstructive pulmonary disease) [facility] Work Phone: Evaluation note* Diagnosis Onset Date Resolution Status Diabetes chronic Hypertension chronic Obesity [facility] Work Phone: Evaluation note* Diagnosis URI, acute- Primary Acute upper respiratory infections of unspecified site Acute cough History of asthma Personal history of other diseases of respiratory system documented in this encounter [facility] for referral (narrative)* Diagnostic Procedure Only (Routine) - Pending Review Specialty Diagnoses / Procedures Referred By Contac t Referred To Contact XR IMAGING Diagnoses Chronic right-sided low back pain with right-sided sciatica Procedures XR LUMBAR GENERAL 3V AP/LAT/L5-S1 RADEX SPINE LUMBOSACRAL 2/3 VIEWS Eleazar Suarez MD [address] [place] [address] Xr Imaging Referral ID Status Reason Start Date Expiration Date Visits Requested Visits Authorized [id number] Pending Review Auto-Generat ed Referral 01/15/2022 02/14/2023 1 1 [facility] Summary Purpose Family History No Family History Records Found Relationship Condition Age at Onset Recorded Date/T elvis Not Specified Diabetes mellitus Unknown Gout Unknown Arthritis Unknown Cardiac disease Unknown Kidney disorder Unknown Porphyria Unknown Pulmonary emphysema Unknown Family history of cataracts Unknown Disorder of lung Unknown Glaucoma Unknown Cerebrovascular accident (CVA) Unknown Advance Directives No Advanced Directives Records Found Advance Directive Response Recorded Date/ Time Advance Directives No August 01 10:07am Living Will No January 13 0 7:46am Power of Heavy Equipment Sales Manager No January 13 7:46am Advance Directive Response Recorded Date/ Time Advance Directives No August 01 11:07am Living Will No January 13 0 8:46am Power of Heavy Equipment Sales Manager No January 13 8:46am Advance Directive Response Recorded Date/ Time Advance Directives No August 01 11:07am Living Will No September 27, 2022 2 :48pm Power of Heavy Equipment Sales Manager No September 27, 2022 2:48pm Advance Directive Response Recorded Date/ Time Advance Directives No August 01 10:07am Living Will No September 27, 2022 1 :48pm Power of Heavy Equipment Sales Manager No September 27, 2022 1:48pm Health Concerns Infection Onset Date Last Indicated [...] EVALUATION HIGH COMPLEX 45 MINS Madelaine Jim, CREDIT RISK ANALYTICS MANAGER.APPLICATION SECURITY DEVELOPER [address] [place] [address] [facility] [address] [address] Referral ID Status Reason Start Date Expiration Date Visits Requested Visits Authorized [id number] Pending Review Auto-Generat ed Referral 01/18/2022 01/18/2023 1 1 Specialty Diagnoses / Procedures Referred By Contac t Referred To Contact [facility] INS Diagnoses Chronic right-sided low back pain with right-sided sciatica Chronic back pain greater than 3 months duration Procedures PT REHAB FOLLOW UP ORDER THERAPEUTIC EXERCISES RE, EA 15 MIN. Ivory Foley, PT [facility] [address] [address] Referral ID Status Reason Start Date Expiration Date Visits Requested Visits Authorized [id number] Pending Review PCP Requested Referral Auto-Generate d Referral 02/05/2022 05/06/2022 1 1 Chief Complaint and Reason for Visit Chief Complaint DYSPNEA DYSPNEA Chief Complaint DYSPNEA DYSPNEA Shortness of breath E ORDER Reason for Visit Chronic obstructive asthma (with obstructive pulmonary disease) Sinusitis Sleep apnea Chief Complaint DYSPNEA DYSPNEA Shortness of breath E ORDER SANDI Reason for Visit Chronic obstructive asthma (with obstructive pulmonary disease) Sinusitis Sleep apnea Chief Complaint DYSPNEA DYSPNEA Shortness of breath E ORDER SANDI ASTHMA Asthma Reason for Visit Chronic obstructive asthma (with obstructive pulmonary disease) Sinusitis Sleep apnea Chief Complaint Shortness of breath E ORDER SANDI ASTHMA Asthma Test Result SCREENING Reason for Visit Chronic obstructive asthma (with obstructive pulmonary disease) Sinusitis Sleep apnea Chronic obstructive asthma (with obstructive pulmonary disease) Sinusitis Sleep apnea Chief Complaint Shortness of breath E ORDER SANDI ASTHMA Asthma Test Result SCREENING PILONIDAL CYST POSTMENOPAUSAL BLEEDING Reason for Visit Chronic obstructive asthma (with obstructive pulmonary disease) Sinusitis Sleep apnea Chronic obstructive asthma (with obstructive pulmonary disease) Sinusitis Sleep apnea Bloating symptom Screening for colon cancer Chief Complaint Shortness of breath E ORDER SANDI ASTHMA Asthma Test Result SCREENING PILONIDAL CYST POSTMENOPAUSAL BLEEDING SLEEP APNEA - REPEAT W/AMBIEN Reason for Visit Chronic obstructive asthma (with obstructive pulmonary disease) Sinusitis Sleep apnea Chronic obstructive asthma (with obstructive pulmonary disease) Sinusitis Sleep apnea Bloating symptom Screening for colon cancer Chief Complaint Shortness of breath E ORDER SANDI ASTHMA Asthma Test Result SCREENING PILONIDAL CYST POSTMENOPAUSAL BLEEDING SLEEP APNEA - REPEAT W/AMBIEN Reason for Visit Chronic obstructive asthma (with obstructive pulmonary disease) Sinusitis Sleep apnea Chronic obstructive asthma (with obstructive pulmonary disease) Sinusitis Sleep apnea Bloating symptom Screening for colon cancer Bloating symptom Screening for colon cancer Chief Complaint ASTHMA Asthma Test Result SCREENING PILONIDAL CYST POSTMENOPAUSAL BLEEDING SLEEP APNEA - REPEAT W/AMBIEN Sleep problems Reason for Visit Chronic obstructive asthma (with obstructive pulmonary disease) Sinusitis Bloating symptom Screening for colon cancer Bloating symptom Screening for colon cancer Allergic rhinitis due to allergen Elevated IgE level SANDI on CPAP Chronic obstructive asthma (with obstructive pulmonary disease) Chief Complaint Sleep problems Reason for Visit Bloating symptom Screening for colon cancer Allergic rhinitis due to allergen Elevated IgE level SANDI on CPAP Chronic obstructive asthma (with obstructive pulmonary disease) Chief Complaint CERVICAL PAIN WITH P AIN BOTH ARMS / RX HERE Diabetes Reason for Visit Diabetes Hypertension Obesity Chief Complaint 10 Wk FU Reason for Visit Diabetes Hypertension Obesity Additional Source Comments INFORMATION SOURCE (unrecogn ized section and content) DATE CREATED AUTHOR 01/06/2020 [facility] ([place]) DATE CREATED AUTHOR AUTHOR'S ORGANIZ ATION 04/30/2021 [facility] DATE CREATED AUTHOR AUTHOR'S ORGANIZ ATION 07/07/2023 [facility] DATE CREATED AUTHOR AUTHOR'S ORGANIZ ATION 02/01/2025 [facility] Source Comments (unrecognize d section and content) In the event this informatio n is protected by the Federal Confidentiality of Alcohol and Drug Abuse Patient Records regulations: The Federal rules restrict any use of the information to criminally investigate or prosecute any alcohol or drug abuse patient.[facility] DaytonIn the event this information is protected by the Federal Confidentiality of Alcohol and Drug Abuse Patient Records regulations: The Federal rules restrict any use of the information to criminally investigate or prosecute any alcohol or drug abuse patient.[facility] DaytonIn the event this information is protected by the Federal Confidentiality of Alcohol and Drug Abuse Patient Records regulations: The Federal rules restrict any use of the information to criminally investigate or prosecute any alcohol or drug abuse patient.[facility] DaytonIn the event this information is protected by the Federal Confidentiality of Alcohol and Drug Abuse Patient Records regulations: The Federal rules restrict any use of the information to criminally investigate or prosecute any alcohol or drug abuse patient.[facility] DaytonIn the event this information is protected by the Federal Confidentiality of Alcohol and Drug Abuse Patient Records regulations: The Federal rules restrict any use of the information to criminally investigate or prosecute any alcohol or drug abuse patient.[facility] DaytonIn the event this information is protected by the Federal Confidentiality of Alcohol and Drug Abuse Patient Records regulations: The Federal rules restrict any use of the information to criminally investigate or prosecute any alcohol or drug abuse patient.[facility] DaytonIn the event this information is protected by the Federal Confidentiality of Alcohol and Drug Abuse Patient Records regulations: The Federal rules restrict any use of the information to criminally investigate or prosecute any alcohol or drug abuse patient.[facility] DaytonIn the event this information is protected by the Federal Confidentiality of Alcohol and Drug Abuse Patient Records regulations: The Federal rules restrict any use of the information to criminally investigate or prosecute any alcohol or drug abuse patient.[facility] Reason for Visit (unrecogniz ed section and content) Reason Comments Sore Throat Watery eyes, sinus s tarted yesterday Reason Comments Results Reason Comments Future Appointment [...] EVALUATION HIGH COMPLEX 45 MINS Madelaine Jim, CREDIT RISK ANALYTICS MANAGER.APPLICATION SECURITY DEVELOPER [address] [place] [address] [facility] [address] [place] [address] Referral ID Status Reason Start Date Expiration Date V isits Requested Visits Authorized [id number] Closed Auto-Generate d Referral 07/18/2021 05/19/2022 1 1 Reason Comments Nasal Congestion Cough, ST, low fever s x2 days Goals (unrecognized section and content) Goals may be documented in a n alternate sectionGoals may be documented in an alternate sectionGoals may be documented in an alternate sectionGoals may be documented in an alternate sectionGoals may be documented in an alternate sectionGoals may be documented in an alternate sectionGoals may be documented in an alternate sectionGoals may be documented in an alternate sectionGoals may be documented in an alternate sectionGoals may be documented in an alternate sectionGoals may be documented in an alternate sectionGoals may be documented in an alternate sectionGoals may be documented in an alternate section Care Teams (unrecognized sec tion and content) Team Status: Active Member Role Status Dates [place] Family Provider Active [place] Primary Care Provider A ctive Team Status: Active Member Role Status Dates [place] Primary Care Provider A ctive Dr. Zana Huerta MD Attending Provider Active Team Status: Active Member Role Status Dates [place] Primary Care Provider A ctive Dr. Elvis Mckeon MD Other Provider Active Dr. Stan Kinney MD Attending Provider Active Dr. Elvis Mckeon MD Referring Provider Active Team Status: Inactive Member Role Status [facility] Primary Care Provider A ctive Dr. Elvis Mckeon MD Attending Provider Active Team Status: Inactive Member Role Status Dates [place] Primary Care Provider A ctive Basilia Kwan HEARING SCREEN COORDINATOR, HEARING SCREEN COORDINATOR-C Attending Provider Active Team Status: Inactive Member Role Status [facility] Primary Care Provider, Referring Provider Active Dr. Go Barrera MD Attending Provider Active Team Status: Inactive Member Role Status Dates [place] Primary Care Provider A ctive Basilia Kwan HEARING SCREEN COORDINATOR, HEARING SCREEN COORDINATOR-C Attending Provider, Referrin g Provider Active Team Status: Active Member Role Status [facility] Primary Care Provider A ctive Dr. Go Barrera MD Attending Provider Active Team Status: Inactive Member Role Status [facility] Primary Care Provider A ctive Dr. Go Barrera MD Attending Provider Active Team Status: Inactive Member Role Status [facility] Primary Care Provider A ctive Dr. Go Barrera MD Attending Provider, Referring Provider Active Team Status: Active Member Role Status [facility] Primary Care Provider A ctive Dr. Elvis MENDIOLA MD Other Provider Active Dr. Stan Kinney MD Attending Provider Active Dr. Elvis Mckeon MD Referring Provider Active Team Status: Active Member Role Status [facility] Primary Care Provider A ctive Dr. Go Barrera MD Referring Provider, Other Pro vider Active Dr. Stan Kinney MD Attending Provider Active Team Status: Inactive Member Role Status Dates [place] Primary Care Provider A ctive Dr. Elvis MENDIOLA MD Attending Provider Active Team Status: Inactive Member Role Status [facility] Primary Care Provider A ctive CRYSTAL MAO NP-C Attending Provider, Referring Provider Active Team Status: Active Member Role Status [facility] Primary Care Provider A ctive Dr. Edwin Maxwell MD Attending Provider Active Team Status: Inactive Member Role Status [facility] Primary Care Provider, Referring Provider Active Dr. Yessenia Ndiaye MD Attending Provider Active Team Status: Inactive Member Role Status Dates [place] Primary Care Provider A ctive Dr. Edwin Maxwell MD Attending Provider Active Team Status: Active Member Role Status Dates [place] Primary Care Provider, Referring Provider Active Dr. Yessenia Ndiaye MD Attending Provider, Other Pro vider Active Team Status: Inactive Member Role Status Dates [place] Primary Care Provider A ctive Dr. Corrine Au , DO Attending Provider Active Team Status: Inactive Member Role Status Dates [place] Primary Care Provider A ctive Dr. Corrine Au , DO Attending Provider, Referrin g Provider Active Team Status: Active Member Role Status Dates [place] Family Provider Active Basilia Kwan HEARING SCREEN COORDINATOR, HEARING SCREEN COORDINATOR-C Primary Care Provider Active Team Status: Inactive Member Role Status Dates [place] Referring Provider Carlo De León , HEARING SCREEN COORDINATOR-C Attending Provider Active Basilia Kwan HEARING SCREEN COORDINATOR, HEARING SCREEN COORDINATOR-C Primary Care Provider Active Team Status: Inactive Member Role Status Dates Basilia Kwan HEARING SCREEN COORDINATOR, HEARING SCREEN COORDINATOR-C Primary Care Provider, Refer ring Provider Active Alisha De León NP-C Attending Provider Active Team Status: Inactive Member Role Status Dates Basilia Kwan HEARING SCREEN COORDINATOR, HEARING SCREEN COORDINATOR-C Attending Provider, Referrin g Provider Active [place] Primary Care Provider A ctive FOR RECORDS PERTAINING TO PATIENTS WHO ARE [...] BE BASED ON THE PRIMARY CLINICAL RECORDS. [employer] [facility]. provides no warranty or guarantee of the accuracy or completeness of information in this document.
[2025-03-20 10:00] LABS: Hematocrit 38.4 % (37-47); Hemoglobin 13.2 g/dL (12.0-15.0); Immature Granulocytes Count 0.030 X10^3/uL (0.0-0.0); Mean Corp Hgb Conc 34.4 g/dL (32-36); Mean Corpuscular Volume 86.1 fL (81-99); Mean Platelet Vol. 8.9 fl (6.2-12.0); NRBC Flagged by Analyzer 0 % (0-5); Platelet Count 320 K/mm3 (150-450); RBC Distribution Width CV 13.3 % (11.6-14.6); RBC Distribution Width SD 41.6 fl (35.1-43.9); Red Blood Count 4.46 M/mm3 (4.2-5.4); White Blood Count 10.2 K/mm3 (4.4-11.0)
[2025-03-20 10:39] LABS: AST(SGOT) 18 U/L (<=31); Alanine Aminotransfer ALT/SGPT 17 U/L (<=34); Albumin, Serum 4.1 g/dL (3.4-4.8); Alkaline Phosphatase 62 U/L (35-104); Anion Gap 11 (5-15); BUN 14 mg/dL (4-19); BUN/Creat Ratio 26.7 RATIO (10-20); Calcium,Total 9.5 mg/dL (7.6-11.0); Carbon Dioxide 23.2 mmol/L (21.0-32.0); Chloride 104 mmol/L (98-108); Cholesterol 123 mg/dL (<=200); Globulin 2.2 g/dL (2.2-4.2); Glucose 127 mg/dL (70-99); Low Density Lipoprotein Calc. 45 mg/dL; Potassium 4.2 mmol/L (3.3-5.1); Triglycerides 190 mg/dL; Very Low Density Lipoprotein 38 mg/dL (5-40); Vitamin D,25 Hydroxy 59.8 ng/mL (30-100); cholesterol:hdl ratio screen 2.58
== END | disposition home or self-care (01) ==
PROVIDERS: PCP Nurse Practitioner Family; Visit Provider Nurse Practitioner Family
DX: E11.65 Type 2 diabetes mellitus with hyperglycemia (principal); E78.2 Mixed hyperlipidemia
CPT/HCPCS: 36415; 80053; 80061; 82306; 83036; 84443; 85025